=== PATIENT | male | born 1960 | race Caucasian/White ===

== ENCOUNTER 2022-02-09 09:19 | Outpatient (REF) | payer OTHER, SELFPAY ==
[2022-02-09 11:27] LABS: MANUAL DIFF FLAG NO
[2022-02-09 11:36] LABS: Basophils Percent Auto 0.7 % (0-2); Eosinophils Absolute Auto 0.2 X10*3/uL (0.0-0.4); Eosinophils Percent Auto 2.5 % (0-4); Hemoglobin 14.5 g/dl (14.0-18.0); Imm Gran Abs Auto 0.01 X10*3/uL (0.00-0.03); Imm Gran Pct Auto 0.2 % (0.0-0.4); Lymphocytes Absolute Auto 1.4 X10*3/uL (1.2-4.9); Mean Corpuscular Hemoglobin 28.2 pg (27.0-33.0); Mean Corpuscular Volume 85.6 fL (80.0-98.0); Mean Platelet Volume 9.1 fL (9.4-12.4); Monocytes Absolute Auto 0.4 X10*3/uL (0.1-1.2); Monocytes Percent Auto 6.8 % (2-11); Neutrophils Percent Auto 66.8 % (45-73); Platelet Count 262 X10*3/uL (160-400); Red Blood Count 5.14 X10*6/uL (4.60-5.80); White Blood Count 5.9 X10*3/uL (4.8-10.8)
[2022-02-09 11:40] LABS: Appearance Urine Clear; Color Urine Yellow; Glucose Urine UA Negative (Negative); Leukocyte Esterase Urine Negative (Negative); Nitrite Urine Negative (Negative); PH 5.5 (5.0-9.0); Specific Gravity - Urine 1.015 (1.005-1.025); Urine Blood Negative (Negative); Urine Ketones Negative (Negative); Urine Protein Negative (Neg-Trace)
[2022-02-09 12:04] LABS: Amphetamine Screen Urine Not Detected (Not Detect); Barbiturates, Urine Not Detected (Not Detect); Benzodiazepines Screen Urine Not Detected (Not Detect); Cannabinoid Screen Urine POSITIVE (Not Detect); Cocaine Screen Urine Not Detected (Not Detect); Fentanyl, urine Not Detected (Not Detect); Opiate Screen Urine Not Detected (Not Detect); Phencyclidine Screen Urine Not Detected (Not Detect)
[2022-02-09 12:07] LABS: Creatinine Urine 75.55 mg/dL; Microalbumin Urine < 5.0 mg/L
[2022-02-09 13:58] LABS: Alanine Aminotransferase 37 U/L (0-40); Albumin Level 4.2 g/dL (3.5-5.0); Alkaline Phosphatase 78 U/L (39-117); Anion Gap 10 (12-20); Aspartate Amino Transferase 27 U/L (5-37); Bilirubin Total 0.5 mg/dL (0.0-1.0); Blood Urea Nitrogen 19 mg/dL (9-16); Calcium 9.1 mg/dL (8.4-10.2); Carbon Dioxide 27 mmol/L (22-29); Chloride 106 mmol/L (96-108); Cholesterol 138 mg/dL; Estimated Glomerular Filt Rate > 60; Glucose Fasting 136 mg/dL (60-99); HDL Cholesterol 28 mg/dL; LDL Cholesterol Calculated 94 mg/dl; Potassium 4.5 mmol/L (3.3-5.1); Prostate Specific Antigen Scr 0.45 ng/mL (<0.05-4.0); Sodium 138 mmol/L (135-145); TSH reflex Free T4 0.74 uIU/mL (0.32-4.0); Total Protein 6.8 g/dL (6.5-8.0); Triglycerides 80 mg/dL
[2022-02-16 12:49] LABS: Testosterone, Free 43.1 pg/mL (35.0-155.0); Testosterone, Total 291 ng/dL (250-1100)
== END 2022-02-09 09:20 | disposition home or self-care (01) ==
LOC: HO.WFDLDS 09:19
PROVIDERS: Visit Provider Family Medicine
DX: Z00.00 Encounter for general adult medical examination without abnormal findings (principal); R79.89 Other specified abnormal findings of blood chemistry; I10 Essential (primary) hypertension; F11.90 Opioid use, unspecified, uncomplicated; Z12.5 Encounter for screening for malignant neoplasm of prostate
CPT/HCPCS: 36415; 80053; 80061; 80307; 81003; 82043; 84153; 84402; 84403; 84443; 85025

== ENCOUNTER 2022-09-29 07:58 | Outpatient (AMB) | payer OTHER, SELFPAY ==
[2022-09-29 08:08] VITALS: BMI 29.8
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
== END 2022-09-29 08:56 | disposition home or self-care (01) ==
PROVIDERS: PCP Family Medicine; Visit Provider Physician Assistant
DX: M65.322 Trigger finger, left index finger (principal)
CPT/HCPCS: 99204

== ENCOUNTER → 2022-09-29 07:58 | Outpatient (BNVA) | payer OTHER, SELFPAY | PROVIDERS: PCP Family Medicine; Visit Provider Orthopaedic Surgery | DX: M65.322 Trigger finger, left index finger (principal) | CPT/HCPCS: 99202 ==

== ENCOUNTER → 2022-10-04 16:04 | Outpatient (AMB) | payer OTHER, SELFPAY ==
--- NOTE | 2022-10-04 16:11 | A.OFFVIS_ITS ---
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 male here today for pre colonoscopy screening.? Patient was sent to us by his PCP.? Last colonoscopy in 2019 recommendation was made to repeat colonoscopy in 3-5 years. ? Denies any personal or family history of gastrointestinal disease, colon polyps, or cancer.? Patient reports occasional postprandial loose stools, then feeling constipated. Occasional lower abdominal cramping postprandially. Patient is taking omeprazole daily. Patient states that he has been taking it for several years. Last upper endoscopy was in 2019 showed chronic inflammation without esophagitis, Miranda's. Denies history of difficulty with sedation or anesthesia in the past.? Negative for history of sleep apnea.? Denies any history of cardiac, renal, pulmonary, or hepatic disease.?? No history of infectious? diseases like hepatitis A, B, C, HIV or tuberculosis.? Patient is not on any anticoagulation therapy. [facility] Surgical History H/O cervical discectomy H/O rotator cuff surgery History of total right knee replacement Social History Housing: House Patient Tobacco Use Status: Never used Tobacco e-Cigarette/Vaping Use: Never Used service: Yes Current occupational status: unemployed Cognitive needs: No Hearing needs: No Vision needs: No Review of Systems Const Denies weight gain and Denies weight loss ENT Reports no additional complaints, Denies dysphagia and Denies odynophagia Card Reports no additional complaints Resp Reports no additional complaints GI Reports abdominal pain (Epigastric), Denies belching, Denies melena, Denies bloating, Reports constipation, Denies dysphagia, Denies excessive flatus, Denies dyspepsia, Denies heartburn, Denies diarrhea, Reports loose stools, Denies nausea, Denies odynophagia and Denies vomiting Reports no additional complaints Musc Reports no additional complaints Neuro Reports no additional complaints Psych Reports no additional complaints Endo Reports no additional complaints Physical Exam Vital Signs: Last Vital Signs Pulse 75 10/04/22 16:12 BP 95/64 10/04/22 16:12 BMI result Body Mass Index 29.9 Const General: healthy appearing, no acute distress and well developed Nutritional Appearance: obese Orientation/consciousness: patient oriented x3 HEENT Head: Yes normal to inspection, Yes normocephalic and Yes atraumatic Face and sinus: Yes normal facial exam Mouth: Normal oral and palatal mucosa present Throat: Yes posterior oropharynx normal, Yes tonsils normal and Yes uvula midline Eyes General: appearance normal, both eyes and all related structures Neck Neck: Yes normal visual inspection, Yes full ROM and Yes trachea midline Thyroid: Thyroid normal Resp Effort & Inspection: normal respiratory effort, able to speak in complete s entences, no tracheal deviation and symmetric chest movement Auscultation: clear to auscultation bilaterally Cardio Rate: regular rate Heart sounds: S1 normal heart sound present and S2 normal heart sound present GI Inspection: Yes normal to inspection, No distended and Yes obesity Palpation (GI): Soft to palpation, not firm, nontender and No hepatosplenomegaly present Auscultation: normal bowel sounds General: Yes no CVA tenderness Back/Spine/Pelvis Back: no CVA tenderness Skin General skin exam: elasticity normal, turgor normal and dry skin Neuro General: patient oriented x3 Psych Appearance: grossly normal Mental Status: mental status grossly normal Speech and movement: Normal speech and movement present Assessment & Plan Assessment & Plan (1) Screening for colon cancer: Code(s): Z12.11 - Encounter for screening for malignant neoplasm of colon Plan: Patient denies any cardiac or respiratory symptoms.? Denies any issues with anesthesia in the past.? Denies any history of sleep apnea.? No history infectious diseases in the past or present.? Not on any anticoagulation therapy.? No family or personal history of colon cancer or polyps.? Patient denies melena, hematochezia, unintentional weight loss or ribbon like stools.? Discussed at length the pre-procedure,? prep, diet & medications as well as what to expect prior, during and after the procedure.?? Stressed the importance of good bowel prep. ?Recommended the use of Vaseline or Calmoseptine OTC & baby wipes with bowel movements to promote comfort.? ?Patient verbalizes understanding and agrees to plan of care.? (2) Postprandial epigastric pain: Code(s): R10.13 - Epigastric pain Plan: Occasional postprandial abdominal pain. Will send patient to rule out celiac, check vitamin B12, folate, vitamin-D. (3) Postprandial diarrhea: Code(s): K52.9 - Noninfective gastroenteritis and colitis, unspecified Plan: Occasional postprandial diarrhea then constipation. Will check CRP to rule out inflammatory bowel, check thyroid level. Patient has postprandial loose stools but then will be constipated. Will start patient on history cell in the morning to help him bulk his stools and Senokot at bedtime to help him eliminate his bowels. I will see him in 5 weeks, sooner on as needed basis. Patient is agreeable to this plan and verbalizes understanding of instructions. He was given the opportunity to ask questions and all questions answered. Thank you for allowing me to participate in his care Orders: Orders Vitamin B12 and Folate 10/05/22 R19.7 - Diarrhea, unspecified C Reactive Protein 10/05/22 K58.9 - Irritable bowel syndrome without diarrhea TSH reflex Free T4 10/05/22 K59.00 - Constipation, unspecified Vitamin D 25-OH (D2 and D3) 10/05/22 E55.9 - Vitamin D deficiency, unspecified Transglutaminase IgA 10/05/22 R10.9 - Unspecified abdominal pain Transglutaminase Ab IgG 10/05/22 R10.9 - Unspecified abdominal pain Medications: New sennosides (Natural Senna Laxative) 8.6 mg PO BEDTIME 90 tabs 3RF constipation K59.00 - Constipation, unspecified methylcellulose (laxative) (Citrucel) 500 mg PO DAILY 30 tabs 2RF K59.00 - Constipation, unspecified Coding Level of Care Code New Pt Level 4 (47605) Diagnoses Screening for colon cancer Z12.11 Postprandial epigastric pain R10.13 Postprandial diarrhea K52.9 Time Spent (min) 45 Comment 30 minutes spent with patient and additional 15 minutes spent reviewing his records
[2022-10-04 16:12] VITALS: BP 95/64; PULSE 75; BMI 29.9
== END ==
PROVIDERS: PCP Family Medicine; Visit Provider Nurse Practitioner Family
DX: Z01.818 Encounter for other preprocedural examination (principal); Z12.11 Encounter for screening for malignant neoplasm of colon; R10.13 Epigastric pain; K52.9 Noninfective gastroenteritis and colitis, unspecified
CPT/HCPCS: 99204

== ENCOUNTER → 2022-10-04 16:04 | Outpatient (BNVA) | payer OTHER, SELFPAY | PROVIDERS: PCP Family Medicine; Visit Provider Nurse Practitioner Family | DX: Z12.11 Encounter for screening for malignant neoplasm of colon (principal); K52.9 Noninfective gastroenteritis and colitis, unspecified; R10.13 Epigastric pain | CPT/HCPCS: 99202 ==

== ENCOUNTER 2022-10-05 09:12 | Outpatient (REF) | payer OTHER, SELFPAY ==
[2022-10-05 12:22] LABS: Folate 5.5 ng/mL (> or = 4.0); Vitamin B12 208 pg/mL (200-900)
[2022-10-05 12:40] LABS: C Reactive Protein 0.19 mg/dL (< or = 0.50); TSH reflex Free T4 0.88 uIU/mL (0.32-4.0)
[2022-10-06 17:28] LABS: Transglutaminase Ab IgG 73.2 U/mL; Transglutaminase IgA >250.0 U/mL
[2022-10-08 15:08] LABS: Vitamin D 25-OH, D2 <4 ng/mL; Vitamin D 25-OH, D3 42 ng/mL; Vitamin D 25-OH, Total 42 ng/mL (30-100)
== END 2022-10-05 09:13 | disposition home or self-care (01) ==
LOC: HO.WFDLDS 09:12
PROVIDERS: Visit Provider Nurse Practitioner Family
DX: K59.00 Constipation, unspecified (principal); R19.7 Diarrhea, unspecified; E55.9 Vitamin D deficiency, unspecified; R10.9 Unspecified abdominal pain; K58.9 Irritable bowel syndrome, unspecified
CPT/HCPCS: 36415; 82306; 82607; 82746; 84443; 86140; 86364

== ENCOUNTER 2022-11-09 10:37 | Outpatient (AMB) | payer OTHER, SELFPAY ==
--- NOTE | 2022-11-09 10:41 | MHC.OFFVIS ---
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 Denies any issues with anesthesia in the past.? Denies any history of sleep apnea.? No history infectious diseases in the past or present.? Not on any anticoagulation therapy.? No family or personal history of colon cancer or polyps.? Patient denies melena, hematochezia, unintentional weight loss or ribbon like stools.? Discussed at length the pre-procedure,? prep, diet & medications as well as what to expect prior, during and after the procedure.?? Stressed the importance of good bowel prep. ?Recommended the use of Vaseline or Calmoseptine OTC & baby wipes with bowel movements to promote comfort.? ?Patient verbalizes understanding and agrees to plan of care.? Postprandial epigastric pain Occasional postprandial abdominal pain. Will send patient to rule out celiac, check vitamin B12, folate, vitamin-D. Postprandial diarrhea Occasional postprandial diarrhea then constipation. Will check CRP to rule out inflammatory bowel, check thyroid level. Patient has postprandial loose stools but then will be constipated. Will start patient on history cell in the morning to help him bulk his stools and Senokot at bedtime to help him eliminate his bowels. I will see him in 5 weeks, sooner on as needed basis. Patient is agreeable to this plan and verbalizes understanding of instructions. He was given the opportunity to ask questions and all questions answered. ? Thank you for allowing me to participate in his care Plan Orders Orders Vitamin B12 and Folate 10/05/22 R19.7 C Reactive Protein 10/05/22 K58.9 TSH reflex Free T4 10/05/22 K59.00 Vitamin D 25-OH (D2 and D3) 10/05/22 E55.9 Transglutaminase IgA 10/05/22 R10.9 Transglutaminase Ab IgG 10/05/22 R10.9 Medications New sennosides (Natural Senna Laxative) 8.6 mg PO BEDTIME 90 tabs 3RF constipation K59.00 methylcellulose (laxative) (Citrucel) 500 mg PO DAILY 30 tabs 2RF K59.00 TODAY'S VISIT: Patient is here today for follow-up and discuss going for colonoscopy. Patient had high transglutaminase. Diagnosed with celiac. Patient will be sent for upper endoscopy to further evaluate and biopsy small bowel. Patient reports that omeprazole has not been working. Still has epigastric discomfort occasionally. Patient tried avoiding gluten, hard to manage due to finding things in the store that are gluten free. Discussed with patient gluten free scanner madie. patient denies any issues with anesthesia in the past. No history of sleep apnea. Not on any anticoagulation medication. Denies any cardiac or respiratory symptoms. [facility] Medical History (Updated 11/09/22 @ 11:28 by Izabella Cabrera [facility]) Celiac disease Surgical History H/O cervical discectomy H/O rotator cuff surgery History of total right knee replacement Social History Housing: House Patient Tobacco Use Status: Never used Tobacco e-Cigarette/Vaping Use: Never Used service: Yes Current occupational status: unemployed Cognitive needs: No Hearing needs: No Vision needs: No Review of Systems Const Denies weight gain and Denies weight loss ENT Reports no additional complaints, Denies dysphagia and Denies odynophagia Card Reports no additional complaints Resp Reports no additional complaints GI Reports abdominal pain (Epigastric), Denies belching, Denies melena, Denies bloating, Denies dysphagia, Denies excessive flatus, Denies dyspepsia, Denies heartburn, Denies diarrhea, Reports loose stools, Denies nausea, Denies odynophagia and Denies vomiting Reports no additional complaints Musc Reports no additional complaints Neuro Reports no additional complaints Psych Reports no additional complaints Endo Reports no additional complaints Physical Exam Vital Signs: BMI result Body Mass Index 29.4 Const General: healthy appearing, no acute distress and well developed Nutritional Appearance: obese Orientation/consciousness: patient oriented x3 HEENT Head: Yes normal to inspection, Yes normocephalic and Yes atraumatic Face and sinus: Yes normal facial exam Mouth: Normal oral and palatal mucosa present Throat: Yes posterior oropharynx normal, Yes tonsils normal and Yes uvula midline Eyes General: appearance normal, both eyes and all related structures Neck Neck: Yes normal visual inspection, Yes full ROM and Yes trachea midline Thyroid: Thyroid normal Resp Effort & Inspection: normal respiratory effort, able to speak in complete sentences, no tracheal deviation and symmetric chest movement Auscultation: clear to auscultation bilaterally Cardio Rate: regular rate Heart sounds: S1 normal heart sound present and S2 normal heart sound present GI Inspection: Yes normal to inspection, No distended and Yes obesity Palpation (GI): Soft to palpation, not firm, nontender and No hepatosplenomegaly present Auscultation: normal bowel sounds General: Yes no CVA tenderness Back/Spine/Pelvis Back: no CVA tenderness Skin General skin exam: elasticity normal, turgor normal and dry skin Neuro General: patient oriented x3 Psych Appearance: grossly normal Mental Status: mental status grossly normal Speech and movement: Normal speech and movement present Results Reviewed Results Reviewed: Laboratory Tests 10/05/22 10/05/22 10/05/22 09:13 09:13 09:13 Vitamin B12 208 25-OH Vitamin D Total 42 Folate 5.5 TSH 0.88 Tiss Transglutamin IgG Tiss Transglutamin IgA 10/05/22 09:13 Vitamin B12 25-OH Vitamin D Total Folate TSH Tiss Transglutamin IgG 73.2 H Tiss Transglutamin IgA >250.0 H Assessment & Plan Assessment & Plan (1) Screening for colon cancer: Code(s): Z12.11 - Encounter for screening for malignant neoplasm of colon Plan: Patient denies any issues with anesthesia in the past. No history of sleep apnea. Not on any anticoagulation medication. Patient had colonoscopy in 2019 and is aware that he needs to be on clear liquid diet and prep day before the procedure. What to expect before during and after the procedure discussed with patient. (2) Celiac disease: Code(s): K90.0 - Celiac disease Plan: High transglutaminase. Discussed with patient gluten free diet. Patient will download gluten free scanner to help with grocery shopping. Patient will be sent for upper endoscopy to further evaluate small bowel (3) Postprandial epigastric pain: Code(s): R10.13 - Epigastric pain Plan: Postprandial epigastric pain. Discussed with patient gluten free diet. Patient will be started on pantoprazole. (4) Postprandial diarrhea: Code(s): K52.9 - Noninfective gastroenteritis and colitis, unspecified Plan: Avoid dietary triggers. Avoid gluten. Patient can try to take Citrucel daily to help him both his stools. I will see patient after the procedure, sooner on as needed basis. Patient is agreeable to this plan and verbalizes understanding of instructions. He was given the opportunity to ask questions and all questions answered. Thank you for allowing me to participate in his care Medications: New pantoprazole take one tablet half an hour before breakfast 40 mg PO DAILY 30 tabs 4RF K21.9 - Gastro-esophageal reflux disease without esophagitis bisacodyl (Dulcolax (bisacodyl)) take 2 tabs at noon the day before your colonoscopy 10 mg (2 x 5 mg) PO ONCE 1 day 2 tabs 0RF Z12.11 - Encounter for screening for malignant neoplasm of colon polyethylene glycol 3350 (Miralax) As directed by gastroenterology department at [facility] 238 grams PO ONCE 238 grams 0RF Z12.11 - Encounter for screening for malignant neoplasm of colon Coding Level of Care Code Est Pt Level 4 (64351) Diagnoses Screening for colon cancer Z12.11 Celiac disease K90.0 Postprandial epigastric pain R10.13 Postprandial diarrhea K52.9 Time Spent (min) 40 Comment 25 minutes spent with patient and additional 15 minutes spent reviewing his records
[2022-11-09 10:42] VITALS: BP 101/65; PULSE 70; BMI 29.4
== END 2022-11-09 11:14 | disposition home or self-care (01) ==
PROVIDERS: PCP Family Medicine; Visit Provider Nurse Practitioner Family
DX: Z12.11 Encounter for screening for malignant neoplasm of colon (principal); K90.0 Celiac disease; R10.13 Epigastric pain; K52.9 Noninfective gastroenteritis and colitis, unspecified; Z01.818 Encounter for other preprocedural examination
CPT/HCPCS: 99214

== ENCOUNTER → 2022-11-09 10:37 | Outpatient (BNVA) | payer OTHER, SELFPAY | PROVIDERS: PCP Family Medicine; Visit Provider Nurse Practitioner Family | DX: Z01.818 Encounter for other preprocedural examination (principal); K90.0 Celiac disease; R10.13 Epigastric pain; K52.9 Noninfective gastroenteritis and colitis, unspecified | CPT/HCPCS: 99212 ==

== ENCOUNTER 2022-11-18 07:43 | Day surgery (SDC) | payer OTHER, SELFPAY ==
[2022-11-18 08:33] VITALS: BP 108/65; PULSE 60; RESP 18; TEMP 36.1; O2SAT 98
[2022-11-18 08:35] VITALS: BMI 28.8
--- NOTE | 2022-11-18 10:28 | MHC.SHP ---
Pre-Procedural Eval Section A Date of Service: 11/18/22 The patient is an INPATIENT: No Changes since office visit: No Cold of Flu in the past 2 weeks, No New Medical Problems, No Changes in Medication and No Patient answered all questions The History & Physical has been completed within 30 days and I have reviewed it.: Yes Section B Chief Complaint: Trigger finger, left index finger Allergies: Allergies Allergy/AdvReac Type Severity Reaction Status Date / Time coconut Allergy Severe SWELLING Verified 11/09/22 10:42 tree nut [Tree Nut] Allergy Severe SWELLING Verified 11/09/22 10:42 FRUIT, SKINS Allergy Severe SWELLING Uncoded 11/09/22 10:42 Plan I have reviewed the history and physical and performed a pertinent physical examination on my patient. No changes have occurred unless specified. Time Spent With Patient Time: Total time managing care of this patient today ____ minutes.
--- NOTE | 2022-11-18 10:28 | W.PM.OPN ---
Operative Note Operative Note Date of Service: 11/18/22 Narrative: Operative Note Preop diagnosis: 1. left index finger Trigger finger Postop diagnosis: 1. left index finger Trigger finger Procedure: 1. left index finger A1 nani release Surgeon: Shelby Reese MD Anesthesia: local block using 1% lidocaine with epinephrine Findings: No locking or catching after A1 nani release EBL: Less than 5 mL Tourniquet time: None Specimens: None Complications: None Disposition: Brought to recovery room in stable condition Plan: Follow-up for 10-14 days for wound check and suture removal Indications: The patient is 62 years old, with a left index finger trigger finger that has been unresponsive to nonoperative management. patient was also noted to have a healing wound on the dorsal aspect of his hand between the 1st and 2nd metacarpals, and another 6 cm long oblique scratch over the volar aspect of his forearm. I assessed these wounds in preop hold and talked with the patient. The dorsal hand wound was 2-week-old and the volar wrist wound was several days old. Neither of these appear to be infected. We did talk about the possible increased risk for infection. The patient was very interested in having is procedure done today. The risks and benefits of operative treatment including but not limited to risk of damage to blood vessels, nerves, tendons, infection, persistent pain, persistent symptoms, recurrence or possible need for additional surgery were discussed with the patient and the patient wishes to proceed with surgery. Procedure: Once consent was obtained a local block was performed in the preop area using a combination of 1% lidocaine with epinephrine. The patient was then brought back to the operating suite and placed on the operative table in supine position. The left upper extremity was prepped and draped in a standard surgical fashion. Once assured that we had a good block, a 1.5 cm oblique incision was made centered over the A1 nani of the left index finger . The incision was made through the skin to the subcutaneous tissues using a #15 blade. Careful dissection was made down to the level of the A1 nani using tenotomy scissors, with care being taken to protect the nearby neurovascular structures. A longitudinal incision was made in the A1 nani 1st using a #15 blade, then using tenotomy scissors under direct visualization. The A1 nani was noted to be thickened. Following our A1 nani release, we no longer saw any locking or catching of the digit with flexion and extension. Once satisfied with our A1 nani release the wound was copiously irrigated with normal saline and hemostasis was obtained with a brief period of local pressure. The skin edges were reapproximated with some 5.0 nylon suture material and a sterile dressing was applied. The patient appears to have tolerated the procedure well and with no complications. All digits were well vascularized at the conclusion of the case.
[2022-11-18 11:57] VITALS: BP 126/72; PULSE 50; RESP 16; O2SAT 95
== END 2022-11-18 11:59 | disposition home or self-care (01) ==
PROVIDERS: PCP Family Medicine; Visit Provider Orthopaedic Surgery
PROC: (CPT 26055; principal; 2022-11-18 09:40)
DX: M65.322 Trigger finger, left index finger (principal); M79.642 Pain in left hand; E11.9 Type 2 diabetes mellitus without complications; Z98.890 Other specified postprocedural states
CPT/HCPCS: 26055; J0171

== ENCOUNTER → 2022-11-18 07:43 | Outpatient (BNV) | payer OTHER, SELFPAY | PROVIDERS: PCP Family Medicine; Visit Provider Orthopaedic Surgery | DX: M65.322 Trigger finger, left index finger (principal) | CPT/HCPCS: 26055 ==

== ENCOUNTER 2022-11-30 13:41 | Outpatient (AMB) | payer OTHER, SELFPAY ==
--- NOTE | 2022-11-30 12:07 | A.OFFVIS_ITS ---
Intake Vital Signs 11/30/22 14:05 Height 5 ft 9 in Weight 195 lb BMI 28.8 Intake Visit Reasons: PO LT TR 11/18/22AR Intake Note: Anirudh 62 yr old male presents today for his P/O visit for his left index trigger release from 11/18/22. Sutures removed and steri strips applied. States his finger no longer triggers and has a little soreness. Allergies coconut Allergy (Severe, Verified 11/30/22 14:16) SWELLING tree nut [Tree Nut] Allergy (Severe, Verified 11/30/22 14:16) SWELLING FRUIT, SKINS Allergy (Severe, Uncoded 11/30/22 14:16) SWELLING HPI PO LT TR 11/18/22AR HPI Details Anirudh is a 62 year old right hand dominant man who presents S/P left index trigger finger release, DOS: 11/18/22. He says he is doing well and no longer has any locking or catching. He complains of some new numbness in the median nerve distribution bilaterally, R>L. He says this occurs mostly with activity, such as riding his motorcycle, and at night. He denies any numbness at rest. He reports having C-spine surgery in 12/2021. [facility] Medical History (Updated 11/30/22 @ 15:02 by Roney Mead) Celiac disease Surgical History H/O rotator cuff surgery H/O cervical discectomy History of total right knee replacement Social History Housing: House Patient Tobacco Use Status: Never used Tobacco e-Cigarette/Vaping Use: Never Used service: Yes Current occupational status: unemployed Cognitive needs: No Hearing needs: No Vision needs: No Review of Systems Const All systems reviewed & are unremarkable except as noted in HPI and below Physical Exam Vital Signs: BMI result Body Mass Index 28.8 Const General: no acute distress and alert Orientation/consciousness: patient oriented x3 Neuro General: patient oriented x3 Extrem Other: The patient was alert oriented and in no acute distress The incision is healing well with no erythema drainage or evidence of infection. Sutures removed and Steri-Strips applied He can make a fist and extend all his digits with no locking or catching. Sensation is grossly intact Cap refill is brisk Psych Appearance: grossly normal Affect: normal affect Attitude: cooperative Assessment & Plan Assessment & Plan (1) Trigger finger, left index finger: Code(s): M65.322 - Trigger finger, left index finger (2) Numbness in both hands: Code(s): R20.0 - Anesthesia of skin Plan Assessment & Plan: 1. Left index trigger finger, S/P release DOS: 11/18/22 The patient appears to be doing well post-operatively I educated him about the post-operative course I explained the signs and symptoms of infection, if the patient develops any new or worsening erythema, drainage, pain, or warmth they should contact the clinic or attend the ED. I discussed activity modifications, he is to lift nothing heavier than a cellphone for the next two weeks He will perform gentle ROM exercises at home He should avoid any underwater activities for the next 5 days He should gently massage about the incision site to reduce the risk of hypersensitivity 2. Bilateral hand numbness, R>L In the median nerve distribution Symptoms intermittent and occasional with activity, and at night He has a hx of C-spine surgery in 12/2021 I ordered a NCS to assess for peripheral neuropathy vs cervical radiculopathy He will follow up when completed for review Scribed for Shelby Reese MD by Roney Mead, medical records field technician, on 11/30/22 at 3:00 PM, EST. Orders: Orders NE nerve conduction velocity Today R20.0 - Anesthesia of skin, R20.2 - Paresthesia of skin Coding Level of Care Code Global (01398) Diagnoses Trigger finger, left index finger M65.322 Numbness in both hands R20.0
[2022-11-30 14:05] VITALS: BMI 28.8
== END 2022-11-30 15:07 | disposition home or self-care (01) ==
PROVIDERS: PCP Family Medicine; Visit Provider Orthopaedic Surgery
DX: M65.322 Trigger finger, left index finger (principal); R20.0 Anesthesia of skin
CPT/HCPCS: 99024

== ENCOUNTER → 2022-11-30 13:41 | Outpatient (BNVA) | payer OTHER, SELFPAY | PROVIDERS: PCP Family Medicine; Visit Provider Orthopaedic Surgery ==

== ENCOUNTER 2022-12-08 09:32 | Outpatient (REF) | payer OTHER, SELFPAY ==
--- NOTE | 2022-12-08 09:35 | EMG_ITS ---
Please see scanned EMG / Nerve Conduction Report. MTDD
== END 2022-12-08 09:33 | disposition home or self-care (01) ==
LOC: HO.NEURO 09:32
PROVIDERS: Visit Provider Orthopaedic Surgery
DX: R20.0 Anesthesia of skin (principal); R20.2 Paresthesia of skin
CPT/HCPCS: 95885; 95913

== ENCOUNTER 2022-12-16 13:05 | Day surgery (SDC) | payer OTHER, SELFPAY ==
[2022-12-14 10:18] VITALS: BMI 29.4
--- NOTE | 2022-12-15 11:49 | HO.ANESPROP2 ---
Documented by User: Aminah Looney NP 12/15/22 11:50 HPI - Anesthesia Eval Consult details Narrative: 62yo M for Upper Endoscopy and Colonoscopy ON LICENSE OF [facility] Active Problems Active Problems: All Active Problems (Updated 12/14/22 @ 10:06 by Lovely Izquierdo RN) Numbness in both hands (Acute) Trigger finger, left index finger (Acute) Fatigue (Acute) Chest discomfort (Acute) Left leg pain (Acute) Subscapular pain (Acute) Diabetes (Acute) Screening for prostate cancer (Acute) Screening for colon cancer (Acute) Low HDL (under 40) (Acute) Elevated fasting glucose (Acute) Adult general medical exam (Acute) Allergies (Acute) Nerve root compression (Acute) Disc-osteophyte complex (Acute) Laboratory exam ordered as part of routine general medical examination (Acute) Celiac disease (Acute) Past Medical History Medical History (Updated 12/14/22 @ 10:06 by Lovely Izquierdo RN) Diabetes Celiac disease Surgical History Surgical History (Updated 12/14/22 @ 10:16 by Lovely Izquierdo RN) Hx of hand surgery H/O rotator cuff surgery H/O cervical discectomy History of total right knee replacement Social History Social History Housing: House Patient Tobacco Use Status: Former Tobacco user Quit Date: 40 years e-Cigarette/Vaping Use: Never Used service: Yes Current occupational status: unemployed Cognitive needs: No Hearing needs: No Vision needs: No Meds Allergies Allergy/AdvReac Type Severity Reaction Status Date / Time coconut Allergy Severe SWELLING Verified 11/30/22 14:16 tree nut [Tree Nut] Allergy Severe SWELLING Verified 11/30/22 14:16 FRUIT, SKINS Allergy Severe SWELLING Uncoded 11/30/22 14:16 Home Medications Medication Instructions Recorded Confirmed Last Taken Type cetirizine 10 mg capsule (Zyrtec) 10 mg PO DAILY 12/16/22 12/16/22 12/16/22 History Exam Exam Date and Time: December 15, 2022 114 Height,Weight and Vital Signs: Height 5 ft 9 in Weight 90.265 kg Assessment and Plan Assessment Anesthesia Assessment: Chart Reviewed Documented by User: Dandre Mcqueen MD 12/16/22 18:10 HPI - Anesthesia Eval Consult details Narrative: 62yo M for Upper Endoscopy and Colonoscopy functional status greater than 4 METS PMFSH Past Medical History Medical History (Updated 12/14/22 @ 10:06 by Lovely Izquierdo RN) Diabetes Celiac disease Functional capacity: independent ambulation Family History Family history of problems with anesthesia: No Surgical History Surgical History (Updated 12/14/22 @ 10:16 by Lovely Izquierdo RN) Hx of hand surgery H/O rotator cuff surgery H/O cervical discectomy History of total right knee replacement History of Problems with Anesthesia: No Social History Social History Housing: House Patient Tobacco Use Status: Former Tobacco user Quit Date: 40 years e-Cigarette/Vaping Use: Never Used service: Yes Current occupational status: unemployed Cognitive needs: No Hearing needs: No Vision needs: No Meds Allergies Allergy/AdvReac Type Severity Reaction Status Date / Time coconut Allergy Severe SWELLING Verified 11/30/22 14:16 tree nut [Tree Nut] Allergy Severe SWELLING Verified 11/30/22 14:16 FRUIT, SKINS Allergy Severe SWELLING Uncoded 11/30/22 14:16 Home Medications Medication Instructions Recorded Confirmed Last Taken Type cetirizine 10 mg capsule (Zyrtec) 10 mg PO DAILY 12/16/22 12/16/22 12/16/22 History Exam Airway Mallampati Class: III Loose/Missing/Broken Teeth: Yes (missing and poor dentition ) Assessment and Plan Assessment Anesthesia Assessment: Anesthesia Plan Discussed Final Anesthetic Review Family History of Problems with Anesthesia: No History of Problems with Anesthesia: No NPO: Yes ASA Class: II Final Preanesthetic Review: Meds/Allgs Chart Reviewed, Consent Obtained/Reviewed and Anes Risks/Benef Reviewed Patient Risk: Intermediate Procedure Risk: Intermediate Anesthetic Plan Anesthetic Plan: MAC: and Agree w/ Assess. and Plan Disposition: Standard PACU
[2022-12-16 13:35] VITALS: BP 134/88; PULSE 67; RESP 18; TEMP 36.1; O2SAT 99; BMI 28.8
[2022-12-16] MEDS: Lactated Ringers 1,000 ML 100 ML IVCONT (13:59)
--- NOTE | 2022-12-16 16:04 | MHC.SHP ---
Pre-Procedural Eval Section A Date of Service: 12/16/22 Section B Chief Complaint: celiac ab +, diarrhea, hx of polyps Details of Present Illness: Surg hx: H/O cervical discectomy H/O rotator cuff surgery History of total right knee replacement Relevant Social History: None Present Medications: see Short Stay Collaborative assessment Allergies: Allergies Allergy/AdvReac Type Severity Reaction Status Date / Time coconut Allergy Severe SWELLING Verified 11/30/22 14:16 tree nut [Tree Nut] Allergy Severe SWELLING Verified 11/30/22 14:16 FRUIT, SKINS Allergy Severe SWELLING Uncoded 11/30/22 14:16 Review of Systems Review of Systems Comment: 10 point ROS negative Exam Exam Comment: Gen appear: No acute distress HEENT: no icterus Chest: No overt resp distress Abd: soft, nontender, nondistended Psych: Stable affect, answering questions appropriately Neuro: A/Ox3 noted to move all extremities spontaneously Ext: no peripheral edema Plan Diagnosis/Plan: Unchanged I have reviewed the history and physical and performed a pertinent physical examination on my patient. No changes have occurred unless specified. Time Spent With Patient Time: Total time managing care of this patient today ____ minutes.
--- NOTE | 2022-12-16 17:14 | P.OP_ITS ---
Operative Note Operative Note Date of Service: 12/16/22 Narrative: Procedure:?Esophagogastroduodenoscopy and colonoscopy Endoscopist:?Mary Carmen Silverman MD Indication:?Celiac ab +, diarrhea, hx of polyps Anesthesia Provider:?Dr Mcqueen Anesthesia Type:?MAC Instrument:?Olympus GIF-H190, PCF-H190L EGD Procedure:?? The procedure, indications, preparation and potential complications were reviewed with the patient who indicated understanding and gave written informed consent to proceed. A physical exam was performed. The endoscope was introduced through the mouth, and advanced to the second part of duodenum. The mucosa was carefully examined on slow withdrawal of the endoscope. There were no immediate complications. Patient tolerated the procedure well. EGD Findings:? * Esophagus:? Normal mucosa noted in the entire esophagus. The Z-line is at 40 cm. * Stomach:? Normal mucosa was noted in the stomach. Retroflexion performed in the fundus. * Duodenum:? Fissuring and scalloping of duodenal mucosa was noted with significant blunting of villi in the second portion. Cold forceps biopsies were taken to r/o celiac sprue. There was also a 1.5 cm subepithelial nodule in second portion of the duodenum. This was unroofed with the cold snare re vealing fatty tissue underneath consistent with lipoma. Cold forceps biopsies were taken for histology. Colonoscopy Procedure:? The patient was then turned for the colonoscopy. A digital rectal exam was performed which was abnormal for external hemorrhoids.? A distal attachment cap was affixed to the tip of the scope and the colonoscope was then inserted through the anus and advanced through the colon to the cecum at 70 cm and terminal ileum. Appendiceal orifice and ileocecal valve were identified. Mucosa was carefully examined under high definition white light as the instrument was slowly withdrawn in a retrograde panoramic fashion. Retroflexion was performed in rectum. The procedure was not difficult. There were no immediate obvious complications. The quality of the prep was BBPS: 2+2+2 = adequate Withdrawal time: 12 minutes Limitations: No limitation. Findings: Mucosa: Normal mucosa to cecum and terminal ileum. Cold forceps biopsies were taken from R and L side of the colon to r/o microscopic colitis. Protruding lesions: * Medium internal hemorrhoids without stigmata of recent bleeding. Impression: 1. Normal esophagus 2. Normal stomach 3. 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 Normal colon and terminal ileum mucosa (biopsy) 6. External and internal hemorrhoids Recommendations:?? * Await pathology results. * If path confirms celiac disease, will recommend strict gluten free diet as well as screening and management of nutrient deficiencies as per guidelines. * Repeat colonoscopy in 5 years as patient reports hx of advanced adenoma on last colo in 2019.
[2022-12-16 17:21] VITALS: BP 95/56; PULSE 73; RESP 15; TEMP 36.1; O2SAT 97
[2022-12-16 17:36] VITALS: BP 130/64; PULSE 82; RESP 14; O2SAT 98
[2022-12-16 17:51] VITALS: BP 115/73; PULSE 71; RESP 16; TEMP 36.7; O2SAT 99
== END 2022-12-16 17:53 | disposition home or self-care (01) ==
PROVIDERS: PCP Family Medicine; Visit Provider Internal Medicine
DX: Z12.11 Encounter for screening for malignant neoplasm of colon (principal); Z86.010 Personal history of colon polyps; K90.0 Celiac disease; K64.8 Other hemorrhoids; K64.4 Residual hemorrhoidal skin tags; K52.9 Noninfective gastroenteritis and colitis, unspecified; K21.9 Gastro-esophageal reflux disease without esophagitis; K29.80 Duodenitis without bleeding; E11.9 Type 2 diabetes mellitus without complications; Z79.899 Other long term (current) drug therapy; Z98.890 Other specified postprocedural states; Z87.891 Personal history of nicotine dependence
CPT/HCPCS: 45380; 43239; 88305; 88342; J3010

== ENCOUNTER → 2022-12-16 13:05 | Outpatient (BNV) | payer OTHER, SELFPAY | PROVIDERS: PCP Family Medicine; Visit Provider Internal Medicine | DX: Z12.11 Encounter for screening for malignant neoplasm of colon (principal); Z86.010 Personal history of colon polyps; K90.0 Celiac disease; K52.9 Noninfective gastroenteritis and colitis, unspecified | CPT/HCPCS: 43239; 43251; 45380 ==

== ENCOUNTER → 2023-01-04 16:11 | Outpatient (AMB) | payer OTHER, SELFPAY ==
--- NOTE | 2023-01-04 16:16 | MHC.OFFVIS ---
Intake Vital Signs 01/04/23 16:17 Height 5 ft 9 in Weight 195 lb BMI 28.8 BP 97/56 L Blood Pressure Location Lt brachial Position Sitting Pulse 58 Intake Visit Reasons: s/p DBL Intake Note: Patient follow up for Colonoscopy/EGD results. Patient denies any GI issues. [employer] Supervisor Required: No Accompanied by: Family/Other Allergies coconut Allergy (Severe, Verified 01/04/23 16:24) SWELLING tree nut [Tree Nut] Allergy (Severe, Verified 01/04/23 16:24) SWELLING FRUIT, SKINS Allergy (Severe, Uncoded 11/30/22 14:16) SWELLING HPI s/p DBL HPI Details LAST VISIT: Screening for colon cancer Patient denies any issues with anesthesia in the past. No history of sleep apnea. Not on any anticoagulation medication. Patient had colonoscopy in 2019 and is aware that he needs to be on clear liquid diet and prep day before the procedure. What to expect before during and after the procedure discussed with patient. Celiac disease High transglutaminase. Discussed with patient gluten free diet. Patient will download gluten free scanner to help with grocery shopping. Patient will be sent for upper endoscopy to further evaluate small bowel Postprandial epigastric pain Postprandial epigastric pain. Discussed with patient gluten free diet. Patient will be started on pantoprazole. Postprandial diarrhea Avoid dietary triggers. Avoid gluten. Patient can try to take Citrucel daily to help him both his stools. I will see patient after the procedure, sooner on as needed basis. Patient is agreeable to this plan and verbalizes understanding of instructions. He was given the opportunity to ask questions and all questions answered. ? UPPER ENDOSCOPY AN DCOLONOSCOPY: EGD Findings:? Esophagus:? Normal mucosa noted in the entire esophagus. The Z-line is at 40 cm. Stomach:? Normal mucosa was noted in the stomach. Retroflexion performed in the fundus. Duodenum:? Fissuring and scalloping of duodenal mucosa was noted with significant blunting of villi in the second portion. Cold forceps biopsies were taken to r/o celiac sprue. There was also a 1.5 cm subepithelial nodule in second portion of the duodenum. This was unroofed with the cold snare revealing fatty tissue underneath consistent with lipoma. Cold forceps biopsies were taken for histology. Findings: Mucosa: Normal mucosa to cecum and terminal ileum. Cold forceps biopsies were taken from R and L side of the colon to r/o microscopic colitis. Protruding lesions: Medium internal hemorrhoids without stigmata of recent bleeding. Impression: 1. Normal esophagus 2. Normal stomach 3. 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 Normal colon and terminal ileum mucosa (biopsy) 6. External and internal hemorrhoids Recommendations:?? Await pathology results. If path confirms celiac disease, will recommend strict gluten free diet as well as screening and management of nutrient deficiencies as per guidelines. Repeat colonoscopy in 5 years as patient reports hx of advanced adenoma on last colo in 2019. PATHOLOGY: Diagnosis A. Duodenum, biopsy: Chronic duodenitis with moderate villous blunting, foveolar metaplasia and increased intraepithelial lymphocytes consistent with celiac disease in the appropriate clinical setting. B. Duodenum, nodule, biopsy: Chronic duodenitis with moderate villous blunting and increased intraepithelial lymphocytes consistent with celiac disease in the appropriate clinical setting. C. Colon, right, biopsy: Colonic mucosa within normal limits; negative for active, chronic or microscopic colitis TODAY'S VISIT Patient is here today for follow-up and to discuss upper endoscopy results and colonoscopy results. Biopsy confirms celiac disease. Colonoscopy shows normal colonic mucosa on a negative for active, chronic or microscopic colitis. Patient will need to repeat colonoscopy in 5 years due to tubular adenoma on colonoscopy in 2020. Patient reports that he is having hard time finding bread that is not expensive and is gluten free. Patient likes lower dose breaths for sent which is. 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 His started making him salad. Patient is getting discouraged. Biopsy results discussed with patient. Patient denies any GI concerning symptoms at this time. Reports that he is moving his bowels without any issues. Denies any dyspepsia, dysphagia or odynophagia. Denies any melena, hematochezia, unintentional weight loss or ribbon like stools. Patient reports that he is taking pantoprazole in his symptoms of acid reflux are suppressed. [facility] Medical History (Updated 12/14/22 @ 10:06 by Loveyl Izquierdo RN) Diabetes Celiac disease Surgical History Hx of hand surgery H/O rotator cuff surgery H/O cervical discectomy History of total right knee replacement Social History Housing: House Patient Tobacco Use Status: Former Tobacco user Quit Date: 40 years e-Cigarette/Vaping Use: Never Used service: Yes Current occupational status: unemployed Cognitive needs: No Hearing needs: No Vision needs: No Review of Systems Const Denies weight gain and Denies weight loss ENT Reports no additional complaints, Denies dysphagia and Denies odynophagia Card Reports no additional complaints Resp Reports no additional complaints GI Denies abdominal pain, Denies belching, Denies melena, Denies bloating, Denies change in bowel habits, Denies dysphagia, Denies excessive flatus, Denies dyspepsia, Denies heartburn, Denies diarrhea, Denies loose stools, Denies nausea, Denies odynophagia and Denies vomiting Reports no additional complaints Musc Reports no additional complaints Neuro Reports no additional complaints Psych Reports no additional complaints Endo Reports no additional complaints Physical Exam Vital Signs: Last Vital Signs Pulse 58 01/04/23 16:17 BP 97/56 L 01/04/23 16:17 BMI result Body Mass Index 28.8 Const General: healthy appearing, no acute distress and well developed Nutritional Appearance: well nourished Orientation/consciousness: patient oriented x3 HEENT Head: Yes normal to inspection, Yes normocephalic and Yes atraumatic Face and sinus: Yes normal facial exam Mouth: Normal oral and palatal mucosa present Throat: Yes posterior oropharynx normal, Yes tonsils normal and Yes uvula midline Eyes General: appearance normal, both eyes and all related structures Neck Neck: Yes normal visual inspection, Yes full ROM and Yes trachea midline Thyroid: Thyroid normal Resp Effort & Inspection: normal respiratory effort, able to speak in complete sentences, no tracheal deviation and symmetric chest movement Auscultation: clear to auscultation bilaterally Cardio Rate: regular rate Heart sounds: S1 normal heart sound present and S2 normal heart sound present GI Inspection: Yes normal to inspection and No distended Palpation (GI): Soft to palpation, not firm, nontender and No hepatosplenomegaly present Auscultation: normal bowel sounds General: Yes no CVA tenderness Back/Spine/Pelvis Back: no CVA tenderness Skin General skin exam: elasticity normal, turgor normal and dry skin Neuro General: patient oriented x3 Psych Appearance: grossly normal Mental Status: mental status grossly normal Affect: normal affect Assessment & Plan Assessment & Plan (1) Celiac disease: Code(s): K90.0 - Celiac disease (2) Postprandial epigastric pain: Code(s): R10.13 - Epigastric pain (3) Postprandial diarrhea: Code(s): K52.9 - Noninfective gastroenteritis and colitis, unspecified Plan Long discussion with patient and his about gluten free choices. Discussed cost with patient the importance to abstain from gluten due to celiac disease. Reviewed with patient different choices for carbohydrate that are gluten free. Examples of gluten free flour and gluten free bread review on website. Patient will return in this office in 6 months, sooner on as needed basis. He is agreeable to this plan and verbalizes understanding of instructions. Both patient and were given the opportunity to ask questions and all questions answered. Thank you for allowing me to participate in his care Coding Level of Care Code Est Pt Level 4 (73620) Diagnoses Celiac disease K90.0 Postprandial epigastric pain R10.13 Postprandial diarrhea K52.9 Time Spent (min) 35 Comment 25 minute spent with patient and additional 10 minutes spent reviewing his records
[2023-01-04 16:17] VITALS: BP 97/56; PULSE 58; BMI 28.8
== END ==
PROVIDERS: PCP Family Medicine; Visit Provider Nurse Practitioner Family
DX: K90.0 Celiac disease (principal); R10.13 Epigastric pain; K52.9 Noninfective gastroenteritis and colitis, unspecified
CPT/HCPCS: 99214

== ENCOUNTER → 2023-01-04 16:11 | Outpatient (BNVA) | payer OTHER, SELFPAY | PROVIDERS: PCP Family Medicine; Visit Provider Nurse Practitioner Family | DX: K90.0 Celiac disease (principal); K52.9 Noninfective gastroenteritis and colitis, unspecified; R10.13 Epigastric pain | CPT/HCPCS: 99212 ==

== ENCOUNTER 2023-02-25 10:42 | Outpatient (AMB) | payer OTHER, SELFPAY ==
[2023-02-25 10:53] VITALS: BP 92/50; PULSE 80; RESP 13; O2SAT 98; BMI 29.1
--- NOTE | 2023-02-25 10:53 | A.OFFPC_ITS ---
Vital Signs 02/25/23 10:53 Height 5 ft 9 in Weight 197 lb BMI 29.1 BP 92/50 L Blood Pressure Location Lt brachial Position Sitting Respiration 13 Pulse 80 Pulse Source Pulse Oximeter Pulse Oximetry (%) 98 Oxygen Delivery Method Room Air Intake Visit Reasons: f/u diabetes-NEEDS PHQ-9 + THRIVE Intake Note: Patient is here for a follow up of diabetic care. Patient reports having knee pain, however reports hes lost joe in the healthcare system. 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 Accompanied by: Self / Same As Patient Allergies coconut Allergy (Severe, Verified 02/25/23 10:58) SWELLING tree nut [Tree Nut] Allergy (Severe, Verified 02/25/23 10:58) SWELLING FRUIT, SKINS Allergy (Severe, Uncoded 02/25/23 10:58) SWELLING Tobacco use date assessed: 02/25/23 Dental Screening Dental Screen Date: 02/25/23 Did you have a dental visit in the last 12 months?: Yes Did you have a dental problem in the last 6 months where you did not have access to dental care?: No Was dental information given to patient?: Patient has dentist HPI f/u diabetes-NEEDS PHQ-9 + THRIVE HPI Details 62 y/o male presents to f/u diet control led diabetes. Last A1c 08/30/22 6.2%. A1c today 02/25/23 is 6.2%. Pt has complaints of L leg pain. PFSH Medical History COVID-19 Diabetes Celiac disease Surgical History Hx of hand surgery H/O rotator cuff surgery H/O cervical discectomy History of total right knee replacement Family History (Updated 02/25/23 @ 11:00 by Tatiana Harding CMA) Other Alcohol abuse Drug abuse Social History Housing: House Patient Tobacco Use Status: Former Tobacco user Quit Date: 40 years e-Cigarette/Vaping Use: Never Used service: Yes Current occupational status: unemployed Cognitive needs: No Hearing needs: No Vision needs: No Questionnaire PHQ-9 Over the last 2 weeks, how often have you been bothered by any of the following problems? 1. Little interest or pleasure in doing things: nearly every day 2. Feeling down, depressed, or hopeless: several days 3. Trouble falling or staying asleep, or sleeping too much: several days (staying asleep) 4. Feeling tired or having little energy: nearly every day 5. Poor appetite or overeating: not at all 6. Feeling bad about yourself - or that you are a failure or have let yourself or your family down: not at all 7. Trouble concentrating on things, such as reading the newspaper or watching television: several days 8. Moving or speaking so slowly that other people could have noticed. Or the opposite - being so fidgety or restless that you have been moving around a lot more than usual: not at all 9. Thoughts that you would be better off or of hurting yourself in some way: not at all Total score: 9 Depression Screening Interpretation: Positive Depression Screening Done: Yes 19508 - PHQ-9 Billing: Yes Source: Developed by Drs. Jose Faulkner, Marjorie Gonzalez, Luis Felipe Palacios and colleagues, with an educational juanpablo from [employer]. Thrive Questionnaire Date Thrive assessed: 04/26/22 LAYO-7 AMB Questionnaire LAYO-7 Date LAYO - 7 assessed: 02/25/23 Feeling nervous, anxious, or on edge: 3 = Nearly every day ( antsy ) Not being able to stop or control worryin = Not at all Worrying too much about different things: 0 = Not at all Trouble relaxin = Nearly every day Being so restless that it is hard to sit still: 3 = Nearly every day Becoming easily annoyed or irritable: 3 = Nearly every day Feeling afraid as if something awful might happen: 0 = Not at all Total LAYO-7 score (0-4 normal; 5-9 mild; 10-14 moderate; 15-21 severe): 12 Source: Developed by Drs. Jose Faulkner, Luis Felipe Aguirre and colleagues, with an educational juanpablo from [employer]. LAYO-7 Assessment Billing LAYO-7 Assessment Tool: LAYO-7 Assessment 68753 Review of Systems Const Denies chills, Denies fatigue, Denies fever(s), Denies headache(s) and Denies weakness ENT Denies dizziness and Denies headache(s) Card Denies dyspnea Resp Denies cough, Denies dyspnea, Denies wheezing and Denies other (shortness of breath) Musc Denies numbness and Denies tingling Neuro Denies dizziness, Denies headache(s), Denies numbness, Denies tingling and Denies weakness Psych Denies anxiety and Denies depression Endo Denies fatigue Aller/Immun Denies wheezing Physical exam (Primary Care) Vital Signs: Last Vital Signs Pulse 80 02/25/23 10:53 Resp 13 02/25/23 10:53 BP 92/50 L 02/25/23 10:53 Pulse Ox 98 02/25/23 10:53 Oxygen Delivery Method Room Air 02/25/23 10:53 BMI result Body Mass Index 29.1 Tobacco/Smoking Status: Tobacco use Status Tobacco use date assessed 02/25/23 02/25/23 11:02 Patient Tobacco Use Status Former Tobacco user 02/25/23 11:02 e-Cigarette/Vaping Use Never Used 02/25/23 11:02 PHQ-9: PHQ-9 Score PHQ-9: Total score 9 02/25/23 11:29 Depression Screening Interpretation: Positive Thrive Assessment: Date of Thrive Assessment Date Thrive assessed 04/26/22 02/25/23 11:02 Const General: well developed; No acute distress Nutritional Appearance: well nourished Orientation/consciousness: patient oriented x3 HENMT Head: Yes normocephalic and Yes atraumatic Eyes General: appearance normal, both eyes and all related structures Pupils: Equal, round and reactive pupils present EOM: EOMs intact bilaterally Resp Effort & Inspection: normal respiratory effort Neuro General: patient oriented x3 and gait normal Cranial nerves: Yes Equal, round and reactive pupils present Psych Affect: normal affect Results AMB Hemoglobin A1c AMB Hemoglobin A1c 6.2 % Last Edit by Tatiana Harding CMA on 02/25/23 11:26 Results Reviewed Results Reviewed: Laboratory Last Values Hgb A1c (Clinic) 6.2 % (4.0-6.0) H 02/25/23 11:06 Assessment and Plan Assessment & Plan (1) Diabetes: Code(s): E11.9 - Type 2 diabetes mellitus without complications Plan: A1c?stable?at?6.2%. Goal?is?less?than?7.0%. Continue?diet-controlled?diabetes (2) Celiac disease: Code(s): K90.0 - Celiac disease Plan: Followed?by?Gastroenterology (3) Left leg pain: Code(s): M79.605 - Pain in left leg Plan: Pain?at?anterolateral?aspect?of?proximal?left?tibia. Likely?an?insertion?point?tendonitis?after?overuse?walking?at?[place]?world Encouraged?ice Relative?rest NSAIDs We?discussed?if?this?is?not?improving?I?can?refer?him?to?physical?therapy (4) Irritability: Code(s): R45.4 - Irritability and anger Plan: Patient?notes?some?irritability?during?the?holidays. Otherwise?stable Gave?patient?a?checklist?for?factors?impacting?mental?health Orders: Orders AMB Hemoglobin A1c Today Z13.9 - Encounter for screening, unspecified Coding Level of Care Code Est Pt Level 4 (95987) Diagnoses Diabetes E11.9 Celiac disease K90.0 Left leg pain M79.605 Irritability R45.4 Additional Codes LAYO-7 Assessment Billing - LAYO-7 Assessment Tool: LAYO-7 Assessment 50505 ([id number])
== END 2023-02-25 13:43 | disposition home or self-care (01) ==
PROVIDERS: PCP Family Medicine; Visit Provider Family Medicine
DX: E11.9 Type 2 diabetes mellitus without complications (principal); K90.0 Celiac disease; M79.605 Pain in left leg; R45.4 Irritability and anger
CPT/HCPCS: 83036; 99214

== ENCOUNTER 2023-03-24 08:45 | Outpatient (AMB) | payer OTHER, SELFPAY ==
[2023-03-24 08:50] VITALS: BMI 29.1
--- NOTE | 2023-03-24 08:50 | MHC.OFFVIS ---
Intake Vital Signs 03/24/23 08:50 Height 5 ft 9 in Weight 197 lb BMI 29.1 Intake Visit Reasons: OV-B/L hand EMG review Intake Note: Anirudh is a 63 year old Right hand dominant male who presents today for a EMG review of both of his hands. EMG was done on 12/08/22. Allergies coconut Allergy (Severe, Verified 03/24/23 08:51) SWELLING tree nut [Tree Nut] Allergy (Severe, Verified 03/24/23 08:51) SWELLING FRUIT, SKINS Allergy (Severe, Uncoded 02/25/23 10:58) SWELLING HPI OV-B/L hand EMG review HPI Details 63-year-old right hand dominant male who presents in the office today for a follow up of bilateral hand numbness and review of his EMG study. The patient was last seen in the office on 11/30/[address] Oleary who ordered the EMG study and requested for him to follow up once it had been obtained. [facility] Medical History COVID-19 Diabetes Celiac disease Surgical History Hx of hand surgery H/O rotator cuff surgery H/O cervical discectomy History of total right knee replacement Family History Other Alcohol abuse Drug abuse Social History Housing: [place] Patient Tobacco Use Status: Former Tobacco user Quit Date: 40 years e-Cigarette/Vaping Use: Never Used service: Yes Current occupational status: unemployed Cognitive needs: No Hearing needs: No Vision needs: No Review of Systems Const All systems reviewed & are unremarkable except as noted in HPI and below Physical Exam Vital Signs: BMI result Body Mass Index 29.1 Const General: cooperative, healthy appearing and no acute distress Resp Effort & Inspection: normal respiratory effort and able to speak in complete sentences Cardio Rate: regular rate Peripheral pulses: Peripheral pulses 2+ throughout GI Palpation (GI): Soft to palpation Skin Lesions: no lesions Rashes: no rashes Extrem Other: Bilateral hands: Normal to inspection. No ecchymosis, erythema, or edema. No active locking or catching in any digits. Numbness and tingling accompanied by pain in the bilateral thumbs, index fingers, and middle fingers, he states this is intermittent. Positive Tinel?s. Capillary refill is brisk. Assessment & Plan Assessment & Plan (1) Right carpal tunnel syndrome: Code(s): G56.01 - Carpal tunnel syndrome, right upper limb (2) Left carpal tunnel syndrome: Code(s): G56.02 - Carpal tunnel syndrome, left upper limb Plan Mr. Shields is a 63-year-old right hand dominant male who presents in the office today for a follow up of bilateral hand numbness and review of his EMG study. The patient was last seen in the office on 11/30/[address] Oleary who ordered the EMG study and requested for him to follow up once it had been obtained. The patient reports he is starting a new job on Tuesday03/28/2023. He would like to move forward with surgical intervention but would like to schedule it in 08/2023. He was given my card while in the office today so he may reach out when he is ready to schedule an appointment to see Dr. Reese for his pre-op H&P. The patient does understand that Dr. Reese is booked to the end of 05/2023 and beginning of 06/2023. He demonstrates understanding of this. He will follow up when he ready to schedule his pre-operative appointment with Dr. Reese at his convenience, or sooner if needed. EMG of the bilateral hand, obtained on 12/08/2022, revealed: Mild compression palsy of the median nerve at the wrist bilaterally consistent with mild carpal tunnel syndrome bilaterally. Normal EMG of the left C5-T1 innervated muscles. Patient Instructions: Scribed for Corrina Randolph PA-C by Guadalupe Patterson medical director/head team physician, on 03/24/2023 at 8:51 am, EST. Coding Level of Care Code Est Pt Level 4 (27117) Diagnoses Right carpal tunnel syndrome G56.01 Left carpal tunnel syndrome G56.02
== END 2023-03-24 09:16 | disposition home or self-care (01) ==
PROVIDERS: PCP Family Medicine; Visit Provider Physician Assistant
DX: G56.03 Carpal tunnel syndrome, bilateral upper limbs (principal)
CPT/HCPCS: 99214

== ENCOUNTER → 2023-03-24 08:45 | Outpatient (BNVA) | payer OTHER, SELFPAY | PROVIDERS: PCP Family Medicine; Visit Provider Physician Assistant | DX: G56.03 Carpal tunnel syndrome, bilateral upper limbs (principal) | CPT/HCPCS: 99212 ==

== ENCOUNTER 2023-07-08 10:00 | Outpatient (AMB) | payer OTHER, SELFPAY ==
--- NOTE | 2023-07-08 10:02 | A.OFFVIS_ITS ---
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 Discussed cost with patient the importance to abstain from gluten due to celiac disease. Reviewed with patient different choices for carbohydrate that are gluten free. Examples of gluten free flour and gluten free bread review on website. Patient will return in this office in 6 months, sooner on as needed basis. He is agreeable to this plan and verbalizes understanding of instructions. Both patient and were given the opportunity to ask questions and all questions answered. TODAY'S VISIT Patient is here today for follow-up. Patient was diagnosed last year with celiac disease. Currently patient states that he is feeling better. As long as that he is avoiding gluten. Patient is using madie to by gluten free products as well as using the up for dining. Patient denies any dyspepsia, dysphagia or odynophagia. Denies any GI concerning symptoms except for occasional post prandial abdominal bloating depends on what he eats. For the most part he has been doing well. Moving his bowels well without any issues. Denies melena, hematochezia, unintentional weight loss or ribbon like stools. Patient reports that he has been feeling well since last visit. [facility] Medical History COVID-19 Diabetes Celiac disease Surgical History Hx of hand surgery H/O rotator cuff surgery H/O cervical discectomy History of total right knee replacement Family History Other Alcohol abuse Drug abuse Social History Housing: House Patient Tobacco Use Status: Former Tobacco user Quit Date: 40 years e-Cigarette/Vaping Use: Never Used service: Yes Current occupational status: unemployed Cognitive needs: No Hearing needs: No Vision needs: No Review of Systems Const Denies weight gain and Denies weight loss ENT Reports no additional complaints, Denies dysphagia and Denies odynophagia Card Reports no additional complaints Resp Reports no additional complaints GI Denies abdominal pain, Denies belching, Denies melena, Reports bloating, Denies change in bowel habits, Denies dysphagia, Denies excessive flatus, Denies dyspepsia, Reports heartburn (Occasional), Denies diarrhea, Denies loose stools, Denies nausea, Denies odynophagia and Denies vomiting Reports no additional complaints Musc Reports no additional complaints Neuro Reports no additional complaints Psych Reports no additional complaints Endo Reports no additional complaints Physical Exam Vital Signs: Last Vital Signs Pulse 60 07/08/23 10:03 BP 91/64 07/08/23 10:03 BMI result Body Mass Index 29.8 Const General: healthy appearing, no acute distress and well developed Nutritional Appearance: well nourished Orientation/consciousness: patient oriented x3 Resp Effort & Inspection: normal respiratory effort, able to speak in complete sentences, no tracheal deviation and symmetric chest movement Auscultation: clear to auscultation bilaterally Cardio Rate: regular rate GI Inspection: Yes normal to inspection and No distended Palpation (GI): Soft to palpation, not firm, nontender and No hepatosplenomegaly present Auscultation: normal bowel sounds General: Yes no CVA tenderness Back/Spine/Pelvis Back: no CVA tenderness Skin General skin exam: elasticity normal, turgor normal and dry skin Neuro General: patient oriented x3 Psych Appearance: grossly normal Mental Status: mental status grossly normal Affect: normal affect Assessment & Plan Assessment & Plan (1) Celiac disease: Code(s): K90.0 - Celiac disease Category: Medical (2) Postprandial epigastric pain: Code(s): R10.13 - Epigastric pain (3) Postprandial diarrhea: Code(s): K52.9 - Noninfective gastroenteritis and colitis, unspecified Plan Occasional postprandial loose stools depending on what he eats otherwise patient is feeling well. Patient is avoiding gluten will test to check for compliance. Will also check vitamin-D, B12 and folate. He will return in the office in 1 year, sooner on as needed basis. He is agreeable to this plan and verbalizes understanding of instructions. He was given the opportunity to ask questions and all questions answered. Thank you for allowing me to participate in his care Orders: Orders Vitamin D 25-OH (D2 and D3) 07/08/23 E55.9 - Vitamin D deficiency, unspecified Transglutaminase IgA 07/08/23 R10.9 - Unspecified abdominal pain Vitamin B12 and Folate 07/08/23 R19.7 - Diarrhea, unspecified Coding Level of Care Code Est Pt Level 3 (55219) Diagnoses Celiac disease K90.0 Postprandial epigastric pain R10.13 Postprandial diarrhea K52.9 Time Spent (min) 30 Comment 20 minutes spent with patient and additional 10 minutes spent reviewing his records
[2023-07-08 10:03] VITALS: BP 91/64; PULSE 60; BMI 29.8
== END 2023-07-08 10:41 | disposition home or self-care (01) ==
PROVIDERS: PCP Family Medicine; Visit Provider Nurse Practitioner Family
DX: K90.0 Celiac disease (principal); R10.13 Epigastric pain; K52.9 Noninfective gastroenteritis and colitis, unspecified
CPT/HCPCS: 99213

== ENCOUNTER → 2023-07-08 10:00 | Outpatient (BNVA) | payer OTHER, SELFPAY | PROVIDERS: PCP Family Medicine; Visit Provider Nurse Practitioner Family | DX: K90.0 Celiac disease (principal); R10.13 Epigastric pain; K52.9 Noninfective gastroenteritis and colitis, unspecified | CPT/HCPCS: 99212 ==

== ENCOUNTER 2023-10-28 13:15 | Outpatient (AMB) | payer OTHER, SELFPAY ==
--- NOTE | 2023-10-28 13:19 | A.OFFPC_ITS ---
Vital Signs 10/28/23 13:25 Height 5 ft 9 in Weight 200 lb BMI 29.5 BP 110/70 Blood Pressure Location Rt brachial Position Sitting Respiration 16 Pulse 79 Pulse Source Pulse Oximeter Temp 97.3 F Temp Source Tympanic Pulse Oximetry (%) 97 Oxygen Delivery Method Room Air Intake Visit Reasons: Extended exam f/u labs+health maint.NEEDS PHQ9 Intake Note: CPE Allergies coconut Allergy (Severe, Verified 10/28/23 13:22) SWELLING tree nut [Tree Nut] Allergy (Severe, Verified 10/28/23 13:22) SWELLING FRUIT NUTS Allergy (Uncoded 10/28/23 13:22) Swelling Tobacco use date assessed: 02/25/23 Dental Screening Dental Screen Date: 02/25/23 HPI Extended exam f/u labs+health maint.NEEDS PHQ9 HPI Details 63 y/o male presents for an extended exa m with f/u labs and health maintenance. No recent labs to review. Diet controlled diabetes. A1c today 10/28/23 is 6.1%. Has complaints of cervical radiculopathy. Does report some hand weakness. He notes he had a cough last night and does report some sore throat. He notes he has been traveling a lot. He does have seasonal allergies. Has been taking zyrtec. Last colonoscopy 2022. They note they had seen some polyps. PFSH Medical History COVID-19 Diabetes Celiac disease Surgical History Hx of hand surgery H/O rotator cuff surgery H/O cervical discectomy History of total right knee replacement Family History Other Alcohol abuse Drug abuse Social History Housing: House Patient Tobacco Use Status: Former Tobacco user e-Cigarette/Vaping Use: Never Used service: Yes Current occupational status: unemployed Cognitive needs: No Hearing needs: No Vision needs: No Questionnaire Thrive Questionnaire Date Thrive assessed: 04/26/22 LAYO-7 AMB Questionnaire LAYO-7 Date LAYO - 7 assessed: 02/25/23 Source: Developed by Drs. Jose Faulkner, Marjorie Gonzalez, Luis Felipe Palacios and colleagues, with an educational juanpablo from [employer]. Review of Systems Const Denies chills, Denies fatigue, Denies fever(s), Denies headache(s) and Denies weakness Eyes Denies change in vision ENT Denies dizziness, Denies headache(s), Denies hearing loss, Denies nasal congestion, Denies sinus pain, Denies sinus pressure and Reports sore throat Card Denies chest pain, Denies lightheadedness, Denies dyspnea and Denies other (palpitations) Resp Denies cough, Denies dyspnea and Denies wheezing GI Denies abdominal pain, Denies melena, Denies hematochezia, Denies change in bowel habits, Denies dyspepsia and Denies nausea Denies hematuria and Denies dysuria Musc Denies abnormal gait, Denies myalgias, Denies arthralgias, Denies numbness and Denies tingling Skin/Breast Denies rash, Denies unusual bruising and Denies wounds Neuro Denies abnormal gait, Denies dizziness, Denies headache(s), Denies memory loss, Denies numbness, Denies Sensory deficit (Neuro), Denies tingling and Denies weakness Psych Denies anxiety, Denies depression and Denies memory loss Endo Denies cold intolerance, Denies fatigue, Denies heat intolerance, Denies polydipsia and Denies polyuria Adrian/Lymph Denies easy bleeding and Denies easy bruising Aller/Immun Denies wheezing Physical exam (Primary Care) Vital Signs: Last Vital Signs Temp 97.3 F 10/28/23 13:25 Pulse 79 10/28/23 13:25 Resp 16 10/28/23 13:25 BP 110/70 10/28/23 13:25 Pulse Ox 97 10/28/23 13:25 Oxygen Delivery Method Room Air 10/28/23 13:25 BMI result Body Mass Index 29.5 Tobacco/Smoking Status: Tobacco use Status Tobacco use date assessed 02/25/23 10/28/23 13:24 Patient Tobacco Use Status Former Tobacco user 10/28/23 13:24 e-Cigarette/Vaping Use Never Used 10/28/23 13:24 Thrive Assessment: Date of Thrive Assessment Date Thrive assessed 04/26/22 10/28/23 13:24 Const General: no acute distress, well developed, alert and awake Nutritional Appearance: well nourished Orientation/consciousness: patient oriented x3 HENWV Head: Yes normocephalic and Yes atraumatic Ears: hearing grossly normal bilaterally and TM's normal bilaterally General nose exam: Normal external nose present and Normal nares present Mouth: Normal oral and palatal mucosa present and moist mucous membranes Teeth and gingiva: dentition normal Throat: Yes posterior oropharynx normal Eyes General: appearance normal, both eyes and all related structures Pupils: Equal, round and reactive pupils present and Pupil accommodation reflex normal EOM: EOMs intact bilaterally Neck Neck: Yes normal visual inspection, Yes no lymphadenopathy and Yes trachea midline Thyroid: Thyroid normal Carotids: no bruits Lymphatic: no lymphadenopathy noted Chest Chest palpation & inspection: normal inspection of the chest Resp Effort & Inspection: normal respiratory effort Auscultation: clear to auscultation bilaterally Cardio Rate: regular rate Rhythm: regular rhythm Heart sounds: S1 normal heart sound present, S2 normal heart sound present, no gallops, no murmurs and no rubs Bruits: no abdominal aortic bruits and no carotid bruits GI Palpation (GI): No Abdominal aortic bruit present, Soft to palpation, nontender, No hepatosplenomegaly present and No Rebound tenderness present Auscultation: normal bowel sounds General: Yes no CVA tenderness Back/Spine/Pelvis Back: no CVA tenderness Cervical Spine: cervical ROM normal and No Cervical spine tenderness Thoracic/Lumbar Spine: thoraco-lumbar ROM normal, No pain with thoraco-lumbar ROM, No thoracic spinal tenderness and No lumbar spinal tenderness Skin Lesions: no lesions Rashes: no rashes Trauma: no lacerations or abrasions Wounds: no wounds Nails: normal Neuro General: patient oriented x3 Cranial nerves: Yes Equal, round and reactive pupils present Cognition (Neuro): normal cognition Gait exam (Neuro): Normal gait present Motor exam (neuro): 5/5 motor strength present throughout Sensory Exam: No Sensory deficit (Neuro) Deep tendon reflexes (DTR's): Right patellar reflex intensity grade: 2+ and Left patellar reflex intensity grade: 2+ Extrem General: Yes normal to inspection and No edema Psych Appearance: grossly normal Affect: normal affect Attitude: cooperative Thought process: Normal thought process present Assessment and Plan Assessment & Plan (1) Diabetes: Code(s): E11.9 - Type 2 diabetes mellitus without complications Plan: A1c?is?6.1%.??Good?control.??Goal?is?less?than?7.0% Continue?diet?control Patient?says?he?had?an appointment?with?his?eye?doctor?in?the ?last?year.??Will?request?report (2) Cough: Code(s): R05.9 - Cough, unspecified Plan: Mild?cough?and?rash?with?scratchy?throat - throat?shows?minimal?erythema?and?no?evidence?of?infection. Patient?has?environmental?allergies Likely?allergies Continue?Zyrtec?and?he?can?use?some?Benadryl?at?night?for?the?next?5-7 days (3) Cervical radiculopathy: Code(s): M54.12 - Radiculopathy, cervical region Plan: History?of?cervical?disc?surgery?and?patient?has?some?tingling?and?weakness?and? all?4?distal?extremities Also?has?some?specific?tingling?in?hands?in?a?carpal?tunnel?distribution - likely?some?overlap However,?patient?also?has?some?weakness and?tingling?in?lower?extremities?as?well?and?given?his?history, will?have?him?follow-up?with?Dr. Meneses again (4) Numbness in both hands: Code(s): R20.0 - Anesthesia of skin Plan: As?above Seems?to?have?some?overlap?between?a?pr obable?cervical?radiculopathy?and?also?carpal?tunnel?syndrome - Phalen's?test?positive Advised?he?follow-up?with?his?hand?surgeon,??Mary Ann and?patient?says?he?will?call (5) Screening for prostate cancer: Code(s): Z12.5 - Encounter for screening for malignant neoplasm of prostate Plan: Water?PSA (6) Screening for colon cancer: Code(s): Z12.11 - Encounter for screening for malignant neoplasm of colon Plan: Followed?by?[facility]?GI He?had?a?colonoscopy?last?year?and?says?he?has?follow-up?next?year Up-to-date (7) Adult general medical exam: Code(s): Z00.00 - Encounter for general adult medical examination without abnormal findings Plan: 63-year-old?male?presents?for?an?extended?exam Encouraged?healthy?diet?with?active?lifestyle?and?plenty?of?exercise Orders: Orders Comprehensive [place]. Panel Fast Today Z00.00 - Encounter for general adult medical examination without abnormal findings Microalbumin, Random (w Creat) Today I10 - Essential (primary) hypertension TSH reflex Free T4 Today Z00.00 - Encounter for general adult medical examination without abnormal findings UA and rflx microscopic Today Z00.00 - Encounter for general adult medical examination without abnormal findings AMB Hemoglobin A1c Today Z13.9 - Encounter for screening, unspecified Complete Blood Count Auto Diff Today Z00.00 - Encounter for general adult medical examination without abnormal findings Lipid Panel Today Z00.00 - Encounter for general adult medical examination without abnormal findings Prostate Specific Antigen Scr Today Z12.5 - Encounter for screening for malignant neoplasm of prostate Referrals Orthopedics Referral G54.9 - Nerve root and plexus disorder, unspecified, M25.78 - Osteophyte, vertebrae, M50.30 - Other cervical disc degeneration, unspecified cervical region, M54.12 - Radiculopathy, cervical region Coding Level of Care Code Est Pt Level 4 (64635) Diagnoses Diabetes E11.9 Cough R05.9 Cervical radiculopathy M54.12 Numbness in both hands R20.0 Screening for prostate cancer Z12.5 Screening for colon cancer Z12.11 Adult general medical exam Z00.00
[2023-10-28 13:25] VITALS: BP 110/70; PULSE 79; RESP 16; TEMP 36.3; O2SAT 97; BMI 29.5
== END 2023-10-28 14:00 | disposition home or self-care (01) ==
PROVIDERS: PCP Family Medicine; Visit Provider Family Medicine
DX: E11.9 Type 2 diabetes mellitus without complications (principal)
CPT/HCPCS: 83036; 99214

== ENCOUNTER 2023-12-03 07:13 | Outpatient (REF) | payer OTHER, SELFPAY ==
[2023-12-03 07:35] LABS: MANUAL DIFF FLAG NO
[2023-12-03 08:05] LABS: Basophils Percent Auto 0.7 % (0-2); Eosinophils Absolute Auto 0.1 X10*3/uL (0.0-0.4); Eosinophils Percent Auto 2.2 % (0-4); Hematocrit 43.2 % (42.0-52.0); Hemoglobin 14.7 g/dl (14.0-18.0); Imm Gran Abs Auto 0.01 X10*3/uL (0.00-0.03); Imm Gran Pct Auto 0.2 % (0.0-0.4); Lymphocytes Absolute Auto 1.3 X10*3/uL (1.2-4.9); Lymphocytes Percent Auto 23.3 % (20-40); Mean Corpuscular Hemoglobin 29.8 pg (27.0-33.0); Mean Corpuscular Volume 87.6 fL (80.0-98.0); Mean Platelet Volume 9.1 fL (9.4-12.4); Monocytes Absolute Auto 0.4 X10*3/uL (0.1-1.2); Monocytes Percent Auto 7.3 % (2-11); Neutrophils Absolute Auto 3.6 x10*3/uL (2.0-8.3); Neutrophils Percent Auto 66.3 % (45-73); Platelet Count 193 X10*3/uL (160-400); Red Blood Count 4.93 X10*6/uL (4.60-5.80); Red Cell Distribution Width 13.4 % (11.0-16.0); White Blood Count 5.5 X10*3/uL (4.8-10.8)
[2023-12-03 08:35] LABS: Alanine Aminotransferase 32 U/L (0-40); Albumin Level 4.4 g/dL (3.5-5.0); Alkaline Phosphatase 71 U/L (39-117); Anion Gap 11 (12-20); Aspartate Amino Transferase 28 U/L (5-37); Bilirubin Total 0.4 mg/dL (0.0-1.0); Blood Urea Nitrogen 19 mg/dL (9-16); Calcium 9.6 mg/dL (8.4-10.2); Carbon Dioxide 23 mmol/L (22-29); Chloride 110 mmol/L (96-108); Cholesterol 146 mg/dL (<200); Estimated Glomerular Filt Rate > 60; Glucose Fasting 136 mg/dL (60-99); HDL Cholesterol 35 mg/dL (>40); LDL Cholesterol Calculated 97 mg/dL (<100); Potassium 4.3 mmol/L (3.3-5.1); Sodium 140 mmol/L (135-145); Total Protein 7.1 g/dL (6.5-8.0); Triglycerides 72 mg/dL (<150)
[2023-12-03 08:43] LABS: Appearance Urine Clear; Color Urine Yellow; Glucose Urine UA Negative (Negative); Leukocyte Esterase Urine Negative (Negative); Nitrite Urine Negative (Negative); PH 5.5 (5.0-9.0); Urine Blood Negative (Negative); Urine Ketones Negative (Negative); Urine Protein Negative (Neg-Trace)
[2023-12-03 08:50] LABS: TSH reflex Free T4 1.26 uIU/mL (0.32-4.0)
[2023-12-03 08:59] LABS: Folate 5.9 ng/mL (> or = 4.0); Prostate Specific Antigen Scr 0.38 ng/mL (<0.05-4.0); Vitamin B12 314 pg/mL (200-900)
[2023-12-03 09:19] LABS: Creatinine Urine 38.76 mg/dL; Microalbumin Urine < 5.0 mg/L
[2023-12-05 20:28] LABS: Transglutaminase IgA >250.0 U/mL
[2023-12-07 15:29] LABS: Vitamin D 25-OH, D2 <4 ng/mL; Vitamin D 25-OH, D3 34 ng/mL; Vitamin D 25-OH, Total 34 ng/mL (30-100)
== END 2023-12-03 07:14 | disposition home or self-care (01) ==
LOC: HO.LAB 07:13
PROVIDERS: Nurse Practitioner Family; PCP Family Medicine; Visit Provider Family Medicine
DX: Z00.00 Encounter for general adult medical examination without abnormal findings (principal); R10.9 Unspecified abdominal pain; I10 Essential (primary) hypertension; Z12.5 Encounter for screening for malignant neoplasm of prostate; E55.9 Vitamin D deficiency, unspecified; R19.7 Diarrhea, unspecified
CPT/HCPCS: 36415; 80053; 80061; 81003; 82043; 82306; 82570; 82607; 82746; 84153; 84443; 85025; 86364

== ENCOUNTER 2023-12-06 16:58 | Outpatient (AMB) | payer OTHER, SELFPAY ==
--- NOTE | 2023-12-06 16:54 | A.OFFPC_ITS ---
Intake Visit Reasons: f/u CPE-labs via telemedicine Intake Note: lab review Allergies coconut Allergy (Severe, Verified 12/06/23 16:54) SWELLING tree nut [Tree Nut] Allergy (Severe, Verified 12/06/23 16:54) SWELLING FRUIT NUTS Allergy (Uncoded 12/06/23 16:54) Swelling Tobacco use date assessed: 02/25/23 Dental Screening Dental Screen Date: 02/25/23 HPI f/u CPE-labs via telemedicine HPI Details 63 y/o male presents to f/u CPE-labs via telemedicine. Labs drawn 12/03/23. Reviewed labs with pt. Triglycerides 72. TC 147. LDL 97. HDL low at 35. PSA 0.38. PFSH Medical History COVID-19 Diabetes Celiac disease Surgical History Hx of hand surgery H/O rotator cuff surgery H/O cervical discectomy History of total right knee replacement Family History Other Alcohol abuse Drug abuse Social History Housing: House Patient Tobacco Use Status: Former Tobacco user e-Cigarette/Vaping Use: Never Used service: Yes Current occupational status: unemployed Cognitive needs: No Hearing needs: No Vision needs: No Questionnaire Thrive Questionnaire Date Thrive assessed: 04/26/22 LAYO-7 AMB Questionnaire LAYO-7 Date LAYO - 7 assessed: 02/25/23 Source: Developed by Drs. Jose Faulkner, Marjorie Gonzalez, Luis Felipe Palacios and colleagues, with an educational juanpablo from [employer]. Review of Systems Const Denies chills, Denies fatigue, Denies fever(s), Denies headache(s) and Denies weakness ENT Denies dizziness and Denies headache(s) Card Denies dyspnea Resp Denies cough, Denies dyspnea, Denies wheezing and Denies other (shortness of breath) Musc Denies numbness and Denies tingling Neuro Denies dizziness, Denies headache(s), Denies numbness, Denies tingling and Denies weakness Psych Denies anxiety and Denies depression Endo Denies fatigue Aller/Immun Denies wheezing Physical exam (Primary Care) Tobacco/Smoking Status: Tobacco use Status Tobacco use date assessed 02/25/23 12/06/23 16:56 Patient Tobacco Use Status Former Tobacco user 12/06/23 16:56 e-Cigarette/Vaping Use Never Used 12/06/23 16:56 Thrive Assessment: Date of Thrive Assessment Date Thrive assessed 04/26/22 12/06/23 16:56 Telehealth Telehealth Telehealth Platform: Telephone Location of provider rendering services: practice address Location of patient: address on file Patient Identification confirmed using: Name, : Yes Telehealth method: voice only Patient verbally consented to treatment: Yes Patient verbally consented to billing insurance company: Yes Patient informed of any privacy concerns related to visit: Yes Minutes spent on Phone/Video with Pt.: 7 Coding Level of Care Code Tele Est Pt Level 2 (79007) Diagnoses Diet-controlled diabetes mellitus E11.9 Low HDL (under 40) E78.6 Screening for prostate cancer Z12.5 Assessment & Plan Assessment & Plan (1) Diet-controlled diabetes mellitus: Code(s): E11.9 - Type 2 diabetes mellitus without complications Category: Medical Plan: History?of?diet?controlled?diabetes.??A1c?controlled/in?pre?diabetes?range Encouraged?diet?lower?in?sugars?and?starches Continue?active?lifestyle?and?exercise (2) Low HDL (under 40): Code(s): E78.6 - Lipoprotein deficiency Category: Medical Plan: Mildly?low?HDL?and?this?was?much?lower?previously. Continue?to?work?at?active?lifestyle?and?try?to?increase?activity/exercise (3) Screening for prostate cancer: Code(s): Z12.5 - Encounter for screening for malignant neoplasm of prostate Category: Medical Plan: PSA?within?normal?range Will?continue?to?monitor?annually
== END 2023-12-06 17:05 ==
LOC: HO.HMCFM 16:58
PROVIDERS: PCP Family Medicine; Visit Provider Family Medicine
DX: E11.9 Type 2 diabetes mellitus without complications (principal); E78.6 Lipoprotein deficiency; Z12.5 Encounter for screening for malignant neoplasm of prostate

== ENCOUNTER → 2023-12-06 16:58 | Outpatient (BNVA) | payer OTHER, SELFPAY | PROVIDERS: PCP Family Medicine; Visit Provider Family Medicine ==

== ENCOUNTER 2024-03-09 14:21 | Outpatient (AMB) | payer OTHER, SELFPAY ==
--- NOTE | 2024-03-09 14:35 | MHC.PC.OV ---
Vital Signs 03/09/24 14:41 Height 5 ft 9 in Weight 196 lb 2 oz BMI 29.0 BP 118/70 Blood Pressure Location Rt brachial Position Sitting Respiration 14 Pulse 74 Pulse Source Pulse Oximeter Pulse Oximetry (%) 97 Oxygen Delivery Method Room Air Intake Visit Reasons: f/u diabetes Intake Note: f/u DM Allergies coconut Allergy (Severe, Verified 03/09/24 14:37) SWELLING tree nut [Tree Nut] Allergy (Severe, Verified 03/09/24 14:37) SWELLING FRUIT NUTS Allergy (Uncoded 12/06/23 16:54) Swelling Tobacco use date assessed: 02/25/23 Dental Screening Dental Screen Date: 02/25/23 HPI f/u diabetes HPI Details 64 y/o male presents to f/u diabetes. Had went to the emergency department about a month ago for acute diverticulitis. He notes this has improved. Last A1c 10/28/23 6.1%. A1c today 03/09/24 6.4%. Reports L sided chest pain. [facility] Medical History COVID-19 Diabetes Celiac disease Surgical History Hx of hand surgery H/O rotator cuff surgery H/O cervical discectomy History of total right knee replacement Family History Other Alcohol abuse Drug abuse Social History Housing: House Patient Tobacco Use Status: Former Tobacco user e-Cigarette/Vaping Use: Never Used service: Yes Current occupational status: unemployed Cognitive needs: No Hearing needs: No Vision needs: No Questionnaire PHQ-9 Over the last 2 weeks, how often have you been bothered by any of the following problems? 1. Little interest or pleasure in doing things: not at all 2. Feeling down, depressed, or hopeless: several days 3. Trouble falling or staying asleep, or sleeping too much: several days 4. Feeling tired or having little energy: several days 5. Poor appetite or overeating: not at all 6. Feeling bad about yourself - or that you are a failure or have let yourself or your family down: not at all 7. Trouble concentrating on things, such as reading the newspaper or watching television: not at all 8. Moving or speaking so slowly that other people could have noticed. Or the opposite - being so fidgety or restless that you have been moving around a lot more than usual: not at all 9. Thoughts that you would be better off or of hurting yourself in some way: not at all Total score: 3 Source: Developed by Drs. Jose Faulkner, Marjorie Gonzalez, Luis Felipe Palacios and colleagues, with an educational juanpablo from [employer]. Thrive Questionnaire Date Thrive assessed: 04/26/22 I am a: Patient What is your living situation today?: I have a steady place to live Within the past 12 months, did the food you bought not last and you didn't have the money to get more?: Never true Within the past 12 months, did you worry whether your food would run out before you got money to buy more?: Never true Do you have trouble paying for medicines?: No Do you have trouble getting transportation to medical appointments?: No Do you have trouble paying your heating and electricity bill?: No Do you have trouble taking care of your child, family member or friend?: No Do you have trouble with day-to-day activities such as bathing, preparing meals, shopping, managing finances, etc.?: No Are you currently unemployed and looking for a job?: No Are you interested in more education?: No Please select the resources that you would like help with: None Currently or been in a relationship where the following occur: No concerns reported THRIVE Score: 0 AUDIT C Alcohol Use Questionnaire (AUDIT-C) 1. How often do you have a drink containing alcohol?: Monthly or less 2. How many drinks containing alcohol do you have on a typical day when you are drinking?: 1 or 2 3. How often do you have six or more drinks on one occasion?: Less than monthly Total Score: 2 LAYO-7 AMB Questionnaire LAYO-7 Date LAYO - 7 assessed: 02/25/23 Feeling nervous, anxious, or on edge: 0 = Not at all Not being able to stop or control worryin = Not at all Worrying too much about different things: 1 = Several days Trouble relaxin = Several days Being so restless that it is hard to sit still: 1 = Several days Becoming easily annoyed or irritable: 1 = Several days Feeling afraid as if something awful might happen: 0 = Not at all Total LAYO-7 score (0-4 normal; 5-9 mild; 10-14 moderate; 15-21 severe): 4 Source: Developed by Drs. Jose Faulkner, Marjorie Gonzalez, Luis Felipe Palacios and colleagues, with an educational juanpablo from [employer]. Review of Systems Const Denies chills, Denies fatigue, Denies fever(s), Denies headache(s) and Denies weakness ENT Denies dizziness and Denies headache(s) Card Reports chest pain and Denies dyspnea Resp Denies cough, Denies dyspnea, Denies wheezing and Denies other (shortness of breath) Musc Denies numbness and Denies tingling Neuro Denies dizziness, Denies headache(s), Denies numbness, Denies tingling and Denies weakness Psych Denies anxiety and Denies depression Endo Denies fatigue Aller/Immun Denies wheezing Physical exam (Primary Care) Vital Signs: Last Vital Signs Pulse 74 03/09/24 14:41 Resp 14 03/09/24 14:41 BP 118/70 03/09/24 14:41 Pulse Ox 97 03/09/24 14:41 Oxygen Delivery Method Room Air 03/09/24 14:41 BMI result Body Mass Index 29.0 Tobacco/Smoking Status: Tobacco use Status Tobacco use date assessed 02/25/23 03/09/24 14:42 Patient Tobacco Use Status Former Tobacco user 03/09/24 14:42 e-Cigarette/Vaping Use Never Used 03/09/24 14:42 PHQ-9: PHQ-9 Score PHQ-9: Total score 3 03/09/24 15:12 Thrive Assessment: Date of Thrive Assessment Date Thrive assessed 04/26/22 03/09/24 14:42 Currently or been in a relationship where the following occur: No concerns reported Const General: well developed; No acute distress Nutritional Appearance: well nourished Orientation/consciousness: patient oriented x3 HENMT Head: Yes normocephalic and Yes atraumatic Eyes General: appearance normal, both eyes and all related structures Pupils: Equal, round and reactive pupils present EOM: EOMs intact bilaterally Resp Effort & Inspection: normal respiratory effort Auscultation: clear to auscultation bilaterally Cardio Rate: bradycardic Rhythm: regular rhythm Heart sounds: S1 normal heart sound present, S2 normal heart sound present, no gallops, no murmurs and no rubs Neuro General: patient oriented x3 and gait normal Cranial nerves: Yes Equal, round and reactive pupils present Psych Affect: normal affect Coding Level of Care Code Est Pt Level 4 (43028) Diagnoses Diet-controlled diabetes mellitus E11.9 Left-sided chest pain R07.9 Lump of skin R22.9 Assessment & Plan Assessment & Plan (1) Diet-controlled diabetes mellitus: Code(s): E11.9 - Type 2 diabetes mellitus without complications Category: Medical Plan: A1c?has?climbed?to?6.4%. Still?controlled. Work?on?diet?lower?in?sugars?and?starches.??Continue?diet?control (2) Left-sided chest pain: Code(s): R07.9 - Chest pain, unspecified Category: Medical Plan: Recent?episode?of?left-sided?chest?pain EKG: ?Sinus?bradycardia,?51?beats?per?minute, normal?axis,?no?hypertrophy,?no?ST-T-wave?changes EKG?is?reassuring. No?further?chest?pain?no?chest?pain?with?exertion Will?check?a?chest?x-ray?Check?chest?x-ray He?will?let?me?know?if?pain?returns?or?is?occurring?with?any?exertion (3) Lump of skin: Code(s): R22.9 - Localized swelling, mass and lump, unspecified Category: Medical Plan: 2?cm?lump?at?anterior?left?chest/costal?margin?which?was?noticed?incidentally?due?to?left?chest?pain. Appears?to?be?a?separate?issue?and?not?causing?the?episode?of?chest?pain Check?ultrasound?of?chest?wall. Orders: Orders AMB EKG-In Office Today R07.9 - Chest pain, unspecified US chest Today R22.9 - Localized swelling, mass and lump, unspecified XR chest 2V Today R07.9 - Chest pain, unspecified
[2024-03-09 14:41] VITALS: BP 118/70; PULSE 74; RESP 14; O2SAT 97; BMI 29.0
--- OUTSIDE RECORDS SUMMARY | 2024-03-09 15:46 | XMS_ITS ---
Author Name [facility] Organization Unknown History of Medication Use Medication Directions Dispensed Refills Start Date End Date [facility] zinc gluconate 50 MG tablet Take 1 tablet (50 mg total) by mouth daily. 02/17/2024 03/06/9999 active Cannabis (MARIJUANA) [facility] Prescription Strength Inhale. 02/17/2024 03/06/9999 act suki saccharomyces boulardii (FLORASTOR) 250 MG capsule Take 1 capsule (250 mg total) by mouth 2 (two) times a day. 02/17/2024 03/06/9999 active PANTOprazole (PROTONIX) 40 MG EC tablet Take 1 tablet (40 mg total) by mouth every morning. 02/17/2024 03/06/9999 active Cetirizine HCl (ZyrTEC) 10 MG Cap Take 1 tablet by mouth. 02/17/2024 03/06/9999 active Problems Problem Status Onset Date Problem Type Date of Resoluti on Source Neck pain active 2023-12-16 ProblemAct [facility] S/P cervical spinal fusion active 2023-12-16 ProblemAct [facility] Numbness and tingling of both upper extremities active 2023-12-16 ProblemAct [facility]
== END 2024-03-09 15:45 | disposition home or self-care (01) ==
PROVIDERS: PCP Family Medicine; Visit Provider Family Medicine
DX: E11.9 Type 2 diabetes mellitus without complications (principal); R07.9 Chest pain, unspecified; R22.9 Localized swelling, mass and lump, unspecified

== ENCOUNTER → 2024-03-09 14:21 | Outpatient (BNVA) | payer OTHER, SELFPAY | PROVIDERS: PCP Family Medicine; Visit Provider Family Medicine | DX: E11.9 Type 2 diabetes mellitus without complications (principal); R07.9 Chest pain, unspecified; R22.2 Localized swelling, mass and lump, trunk | CPT/HCPCS: 83036; 96127 ==

== ENCOUNTER 2024-04-05 14:44 | Outpatient (REF) | payer OTHER, SELFPAY ==
--- NOTE | ~2024-04-05 | US_ITS ---
EXAMINATION: US CHEST HISTORY: R22.9 - Localized swelling, mass and lump, unspecified COMPARISON: There are no prior studies for comparison. FINDINGS: Sonographic examination of a palpable abnormality of the left anterior chest wall was performed. No mass or sonographic abnormality is identified. US/US chest IMPRESSION: No sonographic abnormality seen to correspond to the palpable findings in the left anterior chest wall. Electronically signed by: Jose Gillette MD 04/06/2024 08:45 AM [facility]
--- NOTE | ~2024-04-05 | XR_ITS ---
EXAMINATION: XR CHEST 2 VIEWS HISTORY: R07.9 - Chest pain, unspecified COMPARISON: There are no prior studies for comparison. FINDINGS: PA and lateral views of the chest are submitted. The lungs are expanded and clear. There is no pleural effusion, pneumothorax, or pulmonary vascular congestion. The heart is normal in size. The bones are intact. XR/XR chest 2V IMPRESSION: Clear lungs. Electronically signed by: Jose Gillette MD 04/05/2024 03:09 PM [facility]
--- OUTSIDE RECORDS SUMMARY | 2024-04-05 18:39 | XMS_ITS | Clinical Summary ---
Author Organization [facility] Address [address] [place] [address] Care Team Providers Care Harbor Master Name Role Phone Ankit Law MD Primary Care Provider [phone] Allergies Active Allergy Reactions Criticality Noted Date Comments Coconut Itching Low 12/16/2023 Hydromorphone Other (See Comments) 12/16/2023 Seizure like activity, sweats Meloxicam Other (See Comments) High 04/04/2014 States question passed out or seizure unsure Nuts Anaphylaxis High 12/16/2023 Peaches Anaphylaxis High 12/16/2023 Plums Anaphylaxis High 12/16/2023 Watermelon Anaphylaxis High 12/16/2023 Medications Medication Sig Dispensed Refills Start Date End Date Status Cetirizine HCl (ZyrTEC) 10 MG Cap Take 1 tablet by mouth. Active PANTOprazole (PROTONIX) 40 MG EC tablet Take 1 tablet (40 mg total) by mouth every morning. 11/01/2023 Active zinc gluconate 50 MG tablet Take 1 tablet (50 mg total) by mouth daily. Active saccharomyces boulardii (FLORASTOR) 250 MG capsule Take 1 capsule (250 mg total) by mouth 2 (two) times a day. Active Cannabis (MARIJUANA) [facility] Pres[facility] Strength Inhale. Act suki Active Problems Problem Noted Date Diagnosed Date Bilateral carpal tunnel syndrome 03/15/2024 Neck pain 12/16/2023 Numbness and tingling of both upper extremities 12/16/2023 S/P cervical spinal fusion 12/16/2023 Encounters Date Type Department Care Team Description 03/15/2024 1:00 PM EST Telemedicine [facility] Physical Medicine & Rehab [place] [address] [phone] Geoff Velazco MD Numbness and tingling of both upper extremities (Primary Dx); S/P cervical spinal fusion; Bilateral carpal tunnel syndrome 03/15/2024 Travel 02/15/2024 8:00 AM EST Procedure visit [facility] [place] [address] [place] [phone] Geoff Velazco MD McInerney, Brian George, MD S/P cervical spinal fusion (Primary Dx); Numbness and tingling of both upper extremities 02/15/2024 Scanned Document [facility] [address] [place] [phone] Luz Peralta MA 02/15/2024 Scanned Document [facility] [address] [place] [phone] Luz Peralta MA 02/15/2024 Scanned Document [facility] [address] [place] [phone] Luz Peralta MA 02/15/2024 Travel 01/12/2024 Scanned Document [facility] [address] [place] [phone] Richard Zavala MA from Last 3 Months Social History Tobacco Use Types Packs/Day Years Used Date Smoking Tobacco: Never Smokeless Tobacco: Never Tobacco Cessation:Counseling Given: Not Answered Alcohol Use Standard Drinks/Week Comments Yes 0 (1 standard drink = 0.6 oz pur e alcohol) [facility] [place] of Occupat ional Health - Occupational Stress Questionnaire Answer Date Recorded Do you feel stress - tense, restless, nervous, or anxious, or unable to sleep at night because your mind is troubled all the time - these days? To some extent 12/16/2023 Physical Activity Answer Date Recorded On average, how many days pe r week do you engage in moderate to strenuous exercise (like a brisk walk)? 0 days 02/15/2024 On average, how many minutes do you exercise per day at this level? 0 min 02/15/2024 Sex and Gender Information Value Date Recorded Sex Assigned at Male 11/16/2023 2:07 PM EDT Gender Identity Male 11/16/2023 2:07 PM EDT Sexual Orientation Heterosexual (straight) 11/15 2:07 PM EDT Last Filed Vital Signs Vital Sign Reading Time Taken Comments Blood Pressure 105/66 02/15/2024 7:52 AM EST Pulse 61 02/15/2024 7:52 AM EST Temperature - - Respiratory Rate - - Oxygen Saturation 97% 02/15/2024 7:52 AM EST Inhaled Oxygen Concentration - - Weight - - Height - - Body Mass Index - - Plan of Treatment Health Maintenance Due Date Last Done Comments Hepatitis C Virus Screening 1960 HIV Screening 1973 DTaP/Tdap/Td Vaccines (1 - Tdap) 1979 Colonoscopy 2005 Pneumococcal Vaccines 50+ (1 of 1 - PCV) 2010 Zoster (Shingles) Vaccine (1 of 2) 2010 Influenza Vaccine 10/06/2023 COVID-19 Vaccine ( - 2023-2 5 season) 2023 RSV Vaccine 60 years and old er and Patients (1 - 1-dose 75+ series) 2035 Hepatitis B Vaccines Aged Out No long er eligible based on patient's age to complete this topic Care Teams Harbor Master Relationship Specialty Start Date End Date Ankit Law MD [address] [place] [address] Dr Hickey, [place] [address] PCP - General Family Medicine 11/16/23
--- OUTSIDE RECORDS SUMMARY | 2024-04-05 18:39 | XMS_ITS | Encounter Summary ---
Author Organization [facility] Address [address] [place] [address] Care Team Providers Care Lapping Machine Set Up Operator Name Role Phone Ankit Law MD Primary Care Provider [phone] Reason for Visit * Reason Comments Follow-up Follow up post EMG Encounter Details Date Type Department Care Team (Late st Contact Info) Description 03/15/2024 1:00 PM EST Telemedicine [facility] Physical Medicine & Rehab [place] [phone] Geoff Velazco MD [address] [place] [address] Numbness and tingling of both upper extremities (Primary Dx); S/P cervical spinal fusion; Bilateral carpal tunnel syndrome Social History Tobacco Use Types Packs/Day Years Used Date Smoking Tobacco: Never Smokeless Tobacco: Never Alcohol Use Standard Drinks/Week Comments Yes 0 (1 standard drink = 0.6 oz pur e alcohol) [facility] [place] of Occupat ional Health - Occupational Stress [...] Orientation Heterosexual (straight) 11/15 2:07 PM EDT documented as of this encounter Progress Notes * Geoff Velazco MD - 03/15/2024 1:00 PM EST Assessment & Plan Anirudh was seen today for follow-up. Diagnoses and all orders for this visit: Numbness and tingling of both upper extremities S/P cervical spinal fusion Bilateral carpal tunnel syndrome Anirudh presents in follow-up via telehealth appointment to review EMG results which confirmed electrodiagnostic evidence of moderate to severe carpal tunnel syndrome in both the left and right wrists. There was no electrodiagnostic evidence of cervical radiculopathy. Given these findings we had a long discussion about treatment options to help manage his bilateral hand numbness. Recommendations were to schedule an appointment with his orthopedic hand surgeon to discuss carpal tunnel release surgery since his EMG demonstrated more severe pathology that typically warrants surgical intervention. In the interim I did suggest night splinting to help manage his symptoms. Furthermore, I do not feel like there is any further evaluation necessary for his neck and would only consider follow-up following his carpal tunnel surgery if he were to experience persistent upper extremity radiating pain and paresthesias. He he was agreeable to the treatment plan and will follow-up in my clinic on an as-needed basis. Total time spent with the patient for this telephone visit was 21 min. Communication barriers and lifestyle preferences were addressed with the patient. The care plan including medications and self-management goals were reviewed to the best of the patient???s abilities.All questions and concerns were answered. Patient and/or family verbalized understanding of the plan of care. Subjective Subjective Patient ID: Anirudh Anderson is a 64 y.o. male. Anirudh was last seen in follow-up on 12/16/2023 with the following plan of care: Anirudh is a pleasant 63-year-old male with past medical history of GERD, prediabetes, celiac's disease and cervical spinal stenosis status post C4-5, C5- 6 fusion (2021) who presents to PM&R clinic for evaluation of neck pain with associated numbness/tingling in bilateral upper extremities. Today's history and exam findings were concerning for possible cervical radiculitis but differential diagnosis includes entrapment neuropathy of the median and ulnar nerves, functional entrapment of thebrachial plexus. Since he has not undergone recent imaging, recommendations were to obtain updated x-rays of the cervical spine today with flexion-extension views. Will also obtain updated MRI of thecervical spine since his last MRI was prior to surgery. Given his reported sensory disturbance in bilateral upper extremities will order nerve conduction study and EMG. Once MRI and EMGs have been completed we will see him back to review and discuss results. He may be a candidate for repeat course of physical therapy and/or trial of injections. He was advised to seek urgent medical care if he were to experience any red flag symptoms. PLAN: 1) MRI cervical spine from 2021 report reviewed. 2) Xray of cervical spine ordered today ([facility]) 3) MRI cervical spine with and without contrast ([facility]) 4) Referral Dr Worrell for NCS/EMG lateral upper extremities Follow-up once EMG and MRI cervical spine completed Patient's history and clinical exam findings reviewed with the patient today with a brief discussion regarding the relevant anatomy and pathophysiology. Patient's diagnosis, prognosis, and treatment options reviewed including a discussion of the relative risks versus benefits of each treatment. Patient expressed understanding of the plan and agreed to the recommendations. All questions and concerns were addressed. Nerve conduction study/EMG of bilateral upper extremities performed on 02/15/[address] Worrell: Conclusion: This was an abnormal electrodiagnostic evaluation of the bilateral upper extremities. Of note, the snaps for median sensory studies were absent bilaterally. There were significantly prolonged latencies with median motor studies bilaterally. CMAP amplitudes were still within normal limits BL. However there were signs of acute denervation noted on needle EMG of the APB 1 or 2 runs on the left and right. There were no additional signs of acute denervation noted throughout the rest ofthe bilateral upper extremity examination. Given the absent sensory studies, prolonged latency of motor studies and 1-2 runs of P's and fibs on needle EMG of the APB. 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 X-ray cervical spine (12/16/2023): FINDINGS: Postsurgical changes of fusion at C4-C5-C6 levels. Marked degenerative changes with loss of disc space height and hypertrophic change at C3-C4 and C6-C7. Minimal anterior subluxation of C2 on C3. Bilateral multilevel facet arthritis with neural foraminal encroachment. IMPRESSION: 1. Postsurgical changes from fusion at C4-C5 and C6 levels. 2. Marked degenerative changes at C3-C4 and C6-C7. Patient was seen today for a visit via telehealth technology. Patient and provider interacted via Telephonic communication due to a lack of video conferencing option Before beginning the virtual visit, patient identity was confirmed by Name and Date of Patient phone number confirmed Preferred: [phone] Patient location: Patient is located within a home setting Home address [address] [place] [address] [place] [phone] Additional persons present during telehealth visit: No other parties present At time of session, this provider is licensed to provide care in the state in which the patient is currently located. Provider License #: , [place]: [id number] Providers must enter state and license number to fulfill regulatory requirements The patient was advised that in the event that the connection was lost during the visit, to resume the virtual appointment by re-connecting to the previously provided video-conference link or by contacting the office by phone. Technical quality of visit: good . HPI Review of Systems Objective Objective Physical Exam: A hands-on physical exam was not performed given the limitations of a virtual telehealth visit done via telephone. documented in this encounter Plan of Treatment Not on file documented as of this encounter Visit Diagnoses Diagnosis Numbness and tingling of both upper extremities- Primary S/P cervical spinal fusion Arthrodesis status Bilateral carpal tunnel syndrome Carpal tunnel syndrome documented in this encounter Care Teams Lapping Machine Set Up Operator Relationship Specialty Start Date End Date Ankit Law MD [address] [place] [address] [place] [id number] PCP - General Family Medicine 11/16/23 documented as of this encounter
--- OUTSIDE RECORDS SUMMARY | 2024-04-05 18:39 | XMS_ITS | Encounter Summary ---
Author Organization [facility] Address [address] [place] [address] Care Team Providers Care Treating And Pumping Supervisor Name Role Phone Ankit Law MD Primary Care Provider [phone] Encounter Details Date Type Department Care Team ([facility] st Contact Info) Description 02/15/2024 Scanned Document [facility] PHYSICAL MEDICINE & REHAB [facility] [address] [place] [phone] Luz Peralta MA [address] [place] [phone] Social History Tobacco Use Types Packs/Day Years Used Date Smoking Tobacco: Never Smokeless Tobacco: Never Alcohol Use Standard Drinks/Week Comments Yes 0 (1 standard drink = 0.6 oz pur e alcohol) [facility] [place] of Occupat ional Health - Occupational Stress [...] PM EDT documented as of this encounter Plan of Treatment Not on file documented as of this encounter Visit Diagnoses Not on filedocumented in this encounter Care Teams Treating And Pumping Supervisor Relationship Specialty Start Date End Date Ankit Law MD [address] [place] [address] Dr Hickey, [place] [address] PCP - General Family Medicine 11/16/23 documented as of this encounter
--- OUTSIDE RECORDS SUMMARY | 2024-04-05 18:39 | XMS_ITS | Encounter Summary ---
Author Organization [facility] Address [address] [place] [address] Care Team Providers Care Superintendent Mechanical Name Role Phone Ankit Law MD Primary Care Provider [phone] Encounter Details Date Type Department Care Team (Latest Contact Info) Description 03/15/2024 Travel Social History Tobacco Use Types Packs/Day Years Used Date Smoking Tobacco: Never Smokeless Tobacco: Never Alcohol Use Standard Drinks/Week Comments Yes 0 (1 standard drink = 0.6 oz pur e alcohol) [facility] [place] of Occupat ional Health - Occupational Stress [...] on filedocumented in this encounter Care Teams Superintendent Mechanical Relationship Specialty Start Date End Date Ankit Law MD [address] [place] [address] [place] [address] PCP - General Family Medicine 11/16/23 documented as of this encounter
--- OUTSIDE RECORDS SUMMARY | 2024-04-05 18:39 | XMS_ITS | Encounter Summary ---
Author Organization [facility] Address [address] [place] [address] Care Team Providers Care Mica Paster Name Role Phone Ankit Law MD Primary Care Provider [phone] Encounter Details Date Type Department Care Team ([facility] st Contact Info) Description 02/15/2024 Scanned Document [facility]ICAL MEDICINE & [facility] [address] [place] [phone] Luz Peralta MA [address] [place] [phone] Social History Tobacco Use Types Packs/Day Years Used Date Smoking Tobacco: Never Smokeless Tobacco: Never Alcohol Use Standard Drinks/Week Comments Yes 0 (1 standard drink = 0.6 oz pur e alcohol) [facility] [place] of Occupat ional Health - Occupational Stress [...] on filedocumented in this encounter Care Teams Mica Paster Relationship Specialty Start Date End Date Ankit Law MD [address] [place] [address] Dr Hickey, [place] [address] PCP - General Family Medicine 11/16/23 documented as of this encounter
--- OUTSIDE RECORDS SUMMARY | 2024-04-05 18:39 | XMS_ITS | Encounter Summary ---
Author Organization [facility] Address [address] [place] [address] Care Team Providers Care Geological Specialist Name Role Phone Ankit Law MD Primary Care Provider [phone] Encounter Details Date Type Department Care Team (Late st Contact Info) Description 01/12/2024 Scanned Document [facility] PHYSICAL MEDICINE & REHAB [facility] [address] [place] [phone] Richard Zavala MA [address] [place] [id number] Social History Tobacco Use Types Packs/Day Years Used Date Smoking Tobacco: Never Smokeless Tobacco: Never Alcohol Use Standard Drinks/Week Comments Yes 0 (1 standard drink = 0.6 oz pur e alcohol) [facility] [place] of Occupat ional Health - Occupational Stress [...] to strenuous exercise (like a brisk walk)? 2 days 12/16/2023 On average, how many minutes do you exercise per day at this level? 20 min 12/16/2023 Sex and Gender Information Value Date Recorded Sex Assigned at Male 11/16/2023 2:07 PM EDT Gender Identity Male 11/16/2023 2:07 PM EDT Sexual Orientation Heterosexual (straight) 11/15 2:07 PM EDT documented as of this encounter Plan of Treatment Not on file documented as of this encounter Visit Diagnoses Not on filedocumented in this encounter Care Teams Geological Specialist Relationship Specialty Start Date End Date Ankit Law MD [address] [place] [address] [place] [address] PCP - General Family Medicine 11/16/23 documented as of this encounter
--- OUTSIDE RECORDS SUMMARY | 2024-04-05 18:39 | XMS_ITS | Encounter Summary ---
Author Organization [facility] Address [address] [place] [address] Care Team Providers Care Care Associate Name Role Phone Ankit Law MD Primary Care Provider [phone] Encounter Details Date Type Department Care Team ([facility] st Contact Info) Description 02/15/2024 Scanned Document [facility] PHYSICAL MEDICINE & REHAB [facility] [address] [place] [phone] Luz Peralta MA [address] [place] [phone] Social History Tobacco Use Types Packs/Day Years Used Date Smoking Tobacco: Never Smokeless Tobacco: Never Alcohol Use Standard Drinks/Week Comments Yes 0 (1 standard drink = 0.6 oz pur e alcohol) [facility] [place] of Occupat ional Health - Occupational Stress [...] on filedocumented in this encounter Care Teams Care Associate Relationship Specialty Start Date End Date Ankit Law MD [address] [place] [address] Dr Hickey, [place] [address] PCP - General Family Medicine 11/16/23 documented as of this encounter
== END 2024-04-05 14:45 | disposition home or self-care (01) ==
LOC: HO.US 14:44
PROVIDERS: PCP Family Medicine; Visit Provider Family Medicine
DX: R22.9 Localized swelling, mass and lump, unspecified (principal); R07.9 Chest pain, unspecified
CPT/HCPCS: 71046; 76604

== ENCOUNTER → 2024-04-05 14:47 | Outpatient (BNV) | payer OTHER, SELFPAY | PROVIDERS: PCP Family Medicine; Visit Provider Radiology Diagnostic Radiology | DX: R07.9 Chest pain, unspecified (principal) | CPT/HCPCS: 71046; 76604 ==

== ENCOUNTER 2024-04-11 08:51 | Outpatient (AMB) | payer OTHER, SELFPAY ==
[2024-04-11 08:52] VITALS: BMI 28.9
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
--- OUTSIDE RECORDS SUMMARY | 2024-04-11 09:00 | XMS_ITS | Encounter Summary ---
Author Organization [facility] Address [address] [place] [address] Care Team Providers Care Black Top Machine Operator Name Role Phone Ankit Law MD Primary Care Provider [phone] Encounter Details Date Type Department Care Team ([facility] st Contact Info) Description 02/15/2024 Scanned Document [facility] PHYSICAL MEDICINE & REHAB [facility] [address] [place] [phone] Luz Peralta MA [address] [place] [address] [phone] Social History Tobacco Use Types Packs/Day Years Used Date Smoking Tobacco: Never Smokeless Tobacco: Never Alcohol Use Standard Drinks/Week Comments Yes 0 (1 standard drink = 0.6 oz pur e alcohol) [facility] [place] of Occupat ional Health - Occupational Stress [...] on filedocumented in this encounter Care Teams Black Top Machine Operator Relationship Specialty Start Date End Date Ankit Law MD [address] [place] [address] Dr Hickey, [place] [address] PCP - General Family Medicine 11/16/23 documented as of this encounter
--- OUTSIDE RECORDS SUMMARY | 2024-04-11 09:00 | XMS_ITS | Encounter Summary ---
Author Organization [facility] Address [address] [place] [address] Care Team Providers Care Retail Associate Name Role Phone Ankit Law MD Primary Care Provider [phone] Reason for Visit * Reason Comments Follow-up Follow up post EMG Encounter Details Date Type Department Care Team (Late st Contact Info) Description 03/15/2024 1:00 PM EST Telemedicine [facility] Physical Medicine & Rehab [place] [phone] Geoff Velazco MD [address] [place] [address] Numbness and tingling of both upper extremities (Primary Dx); S/P cervical spinal fusion; Bilateral carpal tunnel syndrome Social History Tobacco Use Types Packs/Day Years Used Date Smoking Tobacco: Never Smokeless Tobacco: Never Alcohol Use Standard Drinks/Week Comments Yes 0 (1 standard drink = 0.6 oz pur e alcohol) [facility] of Occupat ional Health - Occupational Stress [...] 2) Xray of cervical spine ordered today ([place] [facility]) 3) MRI cervical spine with and without contrast ([facility]) 4) Referral Dr Worrell for NCS/EMG lateral [...] Date of Patient phone number confirmed Preferred: [phone] Patient location: Patient is located within a home setting Home address [address] [place] [address] [place] [phone] Additional persons present during telehealth visit: No other parties present At time of session, this provider is licensed to provide care in the state in which the patient is currently located. Provider License #: , [place]: [id number] Providers must enter state and license number [...] syndrome documented in this encounter Care Teams Retail Associate Relationship Specialty Start Date End Date Ankit Law MD [address] [place] [address] [place] [address] PCP - General Family Medicine 11/16/23 documented as of this encounter
--- OUTSIDE RECORDS SUMMARY | 2024-04-11 09:00 | XMS_ITS | Encounter Summary ---
Author Organization [facility] Address [address] [place] [address] Care Team Providers Care Extruding Machine Operator Name Role Phone Ankit Law MD Primary Care Provider [phone] Encounter Details Date Type Department Care Team ([facility] st Contact Info) Description 02/15/2024 Scanned Document [facility] PHYSICAL MEDICINE & REHAB [facility] [address] [place] [phone] Luz Peralta MA [address] [place] [address] [phone] Social History Tobacco Use Types Packs/Day Years Used Date Smoking Tobacco: Never Smokeless Tobacco: Never Alcohol Use Standard Drinks/Week Comments Yes 0 (1 standard drink = 0.6 oz pur e alcohol) [facility] [place] of Occupat ional Health - Occupational Stress [...] on filedocumented in this encounter Care Teams Extruding Machine Operator Relationship Specialty Start Date End Date Ankit Law MD [address] [place] [address] Dr Hickey, [place] [address] PCP - General Family Medicine 11/16/23 documented as of this encounter
--- OUTSIDE RECORDS SUMMARY | 2024-04-11 09:00 | XMS_ITS | Encounter Summary ---
Author Organization [facility] Address [address] [place] [address] Care Team Providers Care Helper Teacher Name Role Phone Ankit aLw MD Primary Care Provider [phone] Encounter Details Date Type Department Care Team (Latest Contact Info) Description 03/15/2024 Travel Social History Tobacco Use Types Packs/Day Years Used Date Smoking Tobacco: Never Smokeless Tobacco: Never Alcohol Use Standard Drinks/Week Comments Yes 0 (1 standard drink = 0.6 oz pur e alcohol) [facility] [place] of Occupat ional Health - Occupational Stress [...] on filedocumented in this encounter Care Teams Helper Teacher Relationship Specialty Start Date End Date Ankit Law MD [address] [place] [address] [place] [address] PCP - General Family Medicine 11/16/23 documented as of this encounter
--- OUTSIDE RECORDS SUMMARY | 2024-04-11 09:00 | XMS_ITS | Encounter Summary ---
Author Organization [facility] Address [address] [place] [address] Care Team Providers Care Terrazzo Helper Name Role Phone Ankit Law MD Primary Care Provider [phone] Encounter Details Date Type Department Care Team ([facility] st Contact Info) Description 02/15/2024 Scanned Document [facility] PHYSICAL MEDICINE & REHAB [facility] [address] [place] [phone] Luz Peralta MA [address] [place] [address] [phone] Social History Tobacco Use Types Packs/Day Years Used Date Smoking Tobacco: Never Smokeless Tobacco: Never Alcohol Use Standard Drinks/Week Comments Yes 0 (1 standard drink = 0.6 oz pur e alcohol) [facility] [place] of Occupat ional Health - Occupational Stress [...] on filedocumented in this encounter Care Teams Terrazzo Helper Relationship Specialty Start Date End Date Ankit Law MD [address] [place] [address] Dr Hickey, [place] [address] PCP - General Family Medicine 11/16/23 documented as of this encounter
--- OUTSIDE RECORDS SUMMARY | 2024-04-11 09:00 | XMS_ITS | Encounter Summary ---
Author Organization [facility] Address [address] [place] [address] Care Team Providers Care Death Claim Clerk Name Role Phone Ankit Law MD Primary Care Provider [phone] Encounter Details Date Type Department Care Team (Late st Contact Info) Description 01/12/2024 Scanned Document [facility] PHYSICAL MEDICINE & REHAB [facility] [address] [place] [phone] Richard Zavala MA [address] [place] [phone] Social History Tobacco Use Types Packs/Day Years Used Date Smoking Tobacco: Never Smokeless Tobacco: Never Alcohol Use Standard Drinks/Week Comments Yes 0 (1 standard drink = 0.6 oz pur e alcohol) [facility] [place] of Occupat ional Health - Occupational Stress [...] on filedocumented in this encounter Care Teams Death Claim Clerk Relationship Specialty Start Date End Date Ankit Law MD [address] [place] [address] [place] [address] PCP - General Family Medicine 11/16/23 documented as of this encounter
--- OUTSIDE RECORDS SUMMARY | 2024-04-11 09:00 | XMS_ITS | Clinical Summary ---
Author Organization [facility] Address [address] [place] [address] Care Team Providers Care Aircraft Sales Representative Name Role Phone Ankit Law MD Primary Care Provider [phone] Allergies Active Allergy Reactions Criticality Noted Date [...] (two) times a day. Active Cannabis (MARIJUANA) [facility] Medical Prescription Strength Inhale. Act suki Active Problems Problem Noted Date Diagnosed Date Bilateral carpal tunnel syndrome 03/15/2024 Neck pain 12/16/2023 Numbness and tingling of both upper extremities 12/16/2023 S/P cervical spinal fusion 12/16/2023 Encounters Date Type Department Care Team Description 03/15/2024 1:00 PM EST Telemedicine [facility] Physical Medicine & Rehab [place] [address] [phone] Geoff Velazco MD Numbness and tingling of both upper extremities (Primary Dx); S/P cervical spinal fusion; Bilateral carpal tunnel syndrome 03/15/2024 Travel 02/15/2024 8:00 AM EST Procedure visit [facility] PHYSICAL MEDICINE & REHAB [place] [address] [place] [phone] Geoff Velazco MD McInerney, Brian George, MD S/P cervical spinal fusion (Primary Dx); Numbness and tingling of both upper extremities 02/15/2024 Scanned Document [facility] [address] [place] [phone] Luz Peralta MA 02/15/2024 Scanned Document [facility] [address] [place] [phone] Luz Peralta MA 02/15/2024 Scanned Document [facility] [address] [place] [phone] Luz Peralta MA 02/15/2024 Travel 01/12/2024 Scanned Document [facility] [address] [place] [phone] Richard Zavala MA from Last 3 Months Social History Tobacco Use Types Packs/Day Years Used Date Smoking Tobacco: Never Smokeless Tobacco: Never Tobacco Cessation:Counseling Given: Not Answered Alcohol Use Standard Drinks/Week Comments Yes 0 (1 standard drink = 0.6 oz pur e alcohol) [facility] [place] of Occupat ional Health - Occupational Stress [...] age to complete this topic Care Teams Aircraft Sales Representative Relationship Specialty Start Date End Date Ankit Law MD [address] [place] [address] Dr Hickey, [place] [address] PCP - General Family Medicine 11/16/23
== END 2024-04-11 09:16 | disposition home or self-care (01) ==
PROVIDERS: PCP Family Medicine
DX: G56.03 Carpal tunnel syndrome, bilateral upper limbs (principal)
CPT/HCPCS: 99214

== ENCOUNTER 2024-04-23 16:21 | Outpatient (AMB) | payer OTHER, SELFPAY ==
--- NOTE | 2024-04-23 16:35 | A.OFFPC_ITS ---
Vital Signs 04/23/24 16:42 Height 5 ft 9 in Weight 191 lb 8 oz BMI 28.3 BP 118/65 Blood Pressure Location Lt brachial Position Sitting Respiration 14 Pulse 67 Pulse Source Pulse Oximeter Temp 98.6 F Temp Source Oral Pulse Oximetry (%) 94 Oxygen Delivery Method Room Air Intake Visit Reasons: f/u chest pain Intake Note: radiology review for u/s and chest x-ray Allergies coconut Allergy (Severe, Verified 04/23/24 16:41) SWELLING tree nut [Tree Nut] Allergy (Severe, Verified 04/23/24 16:41) SWELLING FRUIT NUTS Allergy (Uncoded 12/06/23 16:54) Swelling Tobacco use date assessed: 02/25/23 Dental Screening Dental Screen Date: 02/25/23 HPI f/u chest pain HPI Details 64 y/o male presents to f/u chest pain. EKG had been fine. Chest x-ray 04/05/24 had been fine. Chest ultrasound 04/05/24 showed no sonographic abnormality seen to correspond to the palpable findings in the left anterior chest wall. Had noted he is able to shovel an entire driveway without chest discomfort. HPI Comments History of Present Illness Details Documentation assistance for Ankit Law MD, was provided by Renan Templeton,? Scrap Collector on 04/23/2024 at 5:01 PM FIONA. I, Dr. Law, have read, observed, and verified documentation. ?? PFSH Medical History COVID-19 Diabetes Celiac disease Surgical History Hx of hand surgery H/O rotator cuff surgery H/O cervical discectomy History of total right knee replacement Family History Other Alcohol abuse Drug abuse Social History Housing: House Patient Tobacco Use Status: Former Tobacco user e-Cigarette/Vaping Use: Never Used service: Yes Current occupational status: unemployed Cognitive needs: No Hearing needs: No Vision needs: No Questionnaire Thrive Questionnaire Date Thrive assessed: 03/09/24 I am a: Patient What is your living situation today?: I have a steady place to live Within the past 12 months, did the food you bought not last and you didn't have the money to get more?: Never true Within the past 12 months, did you worry whether your food would run out before you got money to buy more?: Never true Do you have trouble paying for medicines?: No Do you have trouble getting transportation to medical appointments?: No Do you have trouble paying your heating and electricity bill?: No Do you have trouble taking care of your child, family member or friend?: No Do you have trouble with day-to-day activities such as bathing, preparing meals, shopping, managing finances, etc.?: No Are you currently unemployed and looking for a job?: No Are you interested in more education?: No Please select the resources that you would like help with: None Currently or been in a relationship where the following occur: No concerns reported THRIVE Score: 0 LAYO-7 AMB Questionnaire LAYO-7 Date LAYO - 7 assessed: 02/25/23 Source: Developed by Drs. Jose Faulkner, Marjorie Gonzalez, Luis Felipe Palacios and colleagues, with an educational juanpablo from [employer]. Review of Systems Const Denies chills, Denies fatigue, Denies fever(s), Denies headache(s) and Denies weakness ENT Denies dizziness and Denies headache(s) Card Denies chest pain, Denies lightheadedness, Denies dyspnea and Denies other (Palpitations) Resp Denies cough, Denies dyspnea, Denies wheezing and Denies other ( shortness of breath) Musc Denies numbness and Denies tingling Neuro Denies dizziness, Denies headache(s), Denies numbness, Denies tingling, Denies paresthesias and Denies weakness Psych Denies anxiety and Denies depression Endo Denies fatigue Aller/Immun Denies wheezing Physical exam (Primary Care) Vital Signs: Last Vital Signs Temp 98.6 F 04/23/24 16:42 Pulse 67 04/23/24 16:42 Resp 14 04/23/24 16:42 BP 118/65 04/23/24 16:42 Pulse Ox 94 04/23/24 16:42 Oxygen Delivery Method Room Air 04/23/24 16:42 BMI result Body Mass Index 28.3 Tobacco/Smoking Status: Tobacco use Status Tobacco use date assessed 02/25/23 04/23/24 16:36 Patient Tobacco Use Status Former Tobacco user 04/23/24 16:36 e-Cigarette/Vaping Use Never Used 04/23/24 16:36 Thrive Assessment: Date of Thrive Assessment Date Thrive assessed 03/09/24 04/23/24 16:36 Currently or been in a relationship where the following occur: No concerns reported Const General: no acute distress and well developed Nutritional Appearance: well nourished Orientation/consciousness: patient oriented [facility]3 [facility]: Yes normocephalic and Yes atraumatic Eyes General: appearance normal, both eyes and all related structures Pupils: Equal, round and reactive pupils present EOM: EOMs intact bilaterally Resp Effort & Inspection: normal respiratory effort Auscultation: clear to auscultation bilaterally Cardio Rate: regular rate Rhythm: regular rhythm Heart sounds: S1 normal heart sound present, S2 normal heart sound present, no gallops, no murmurs and no rubs Neuro General: patient oriented x3 and gait normal Cranial nerves: Yes Equal, round and reactive pupils present Psych Affect: normal affect Coding Level of Care Code Est Pt Level 3 (41798) Diagnoses Left-sided chest pain R07.9 Assessment & Plan Assessment & Plan (1) Left-sided chest pain: Code(s): R07.9 - Chest pain, unspecified Category: Medical Plan: Focal,?atypical?chest?pain EKG?was?within?normal?limits.??Chest?x- ray?and?chest?wall?ultrasound?were?negative Patient?does?note?that?he?has?had?a?history?of?blood?clot Will?check?D-dimer?though?doubt?this?will?be?positive.?? We?did?discuss?that?if?this?is?positive, it?Will?obligate?further?investigation.??Patient?understands. Orders: Orders 2 D Dimer High Sensitivity Today R07.9 - Chest pain, unspecified Troponin-I High Sensitivity Today R07.9 - Chest pain, unspecified Comprehensive Met. Panel Today R07.9 - Chest pain, unspecified
[2024-04-23 16:42] VITALS: BP 118/65; PULSE 67; RESP 14; TEMP 37; O2SAT 94; BMI 28.3
== END 2024-04-23 17:12 | disposition home or self-care (01) ==
PROVIDERS: PCP Family Medicine; Visit Provider Family Medicine
DX: R07.9 Chest pain, unspecified (principal)

== ENCOUNTER → 2024-04-23 16:21 | Outpatient (BNVA) | payer OTHER, SELFPAY | PROVIDERS: PCP Family Medicine; Visit Provider Family Medicine ==

== ENCOUNTER 2024-04-27 15:22 | Outpatient (REF) | payer OTHER, SELFPAY ==
--- OUTSIDE RECORDS SUMMARY | 2024-04-27 15:23 | XMS_ITS | Encounter Summary ---
Author Organization [facility] Address [address] [place] [address] Care Team Providers Care Rubber Insulator Name Role Phone Ankit Law MD Primary Care Provider [phone] [phone] Encounter Details Date Type Department Care Team ([facility] st Contact Info) Description 02/15/2024 Scanned Document [facility] PHYSICAL MEDICINE & REHAB [facility] [address] [place] [phone] Luz Peralta MA [address] [place] [address] [phone] Social History Tobacco Use Types Packs/Day Years Used Date Smoking Tobacco: Never Smokeless Tobacco: Never Alcohol Use Standard Drinks/Week Comments Yes 0 (1 standard drink = 0.6 oz pur e alcohol) [facility] [place] of Occupat ional Health - Occupational Stress [...] on filedocumented in this encounter Care Teams Rubber Insulator Relationship Specialty Start Date End Date Ankit Law MD [address] [place] [address] Dr Hickey, [place] [address] PCP - General Family Medicine 11/16/23 documented as of this encounter
--- OUTSIDE RECORDS SUMMARY | 2024-04-27 15:24 | XMS_ITS | Encounter Summary ---
Author Organization [facility] Address [address] [place] [address] Care Team Providers Care Director Of Search Engine Optimization Name Role Phone Ankit Law MD Primary Care Provider [phone] Encounter Details Date Type Department Care Team ([facility] st Contact Info) Description 02/15/2024 Scanned Document [facility] PHYSICAL MEDICINE & REHAB [facility] [address] [place] [phone] Luz Peralta MA [address] [place] [phone] Social History Tobacco Use Types Packs/Day Years Used Date Smoking Tobacco: Never Smokeless Tobacco: Never Alcohol Use Standard Drinks/Week Comments Yes 0 (1 standard drink = 0.6 oz pur e alcohol) [facility] [place] of Occupat ional Health - Occupational Stress [...] on filedocumented in this encounter Care Teams Director Of Search Engine Optimization Relationship Specialty Start Date End Date Ankit Law MD [address] [place] [address] Dr Hickey, [place] [address] PCP - General Family Medicine 11/16/23 documented as of this encounter
--- OUTSIDE RECORDS SUMMARY | 2024-04-27 15:24 | XMS_ITS | Encounter Summary ---
Author Organization [facility] Address [address] [place] [address] Care Team Providers Care Cloth Measurer Machine Name Role Phone Ankit Law MD Primary Care Provider +1 [phone] Encounter Details Date Type Department Care Team (Late st Contact Info) Description 01/12/2024 Scanned Document [facility] PHYSICAL MEDICINE & REHAB [facility] [address] [place] [phone] Richard Zavala MA [address] [place] [phone] Social History Tobacco Use Types Packs/Day Years Used Date Smoking Tobacco: Never Smokeless Tobacco: Never Alcohol Use Standard Drinks/Week Comments Yes 0 (1 standard drink = 0.6 oz pur e alcohol) [facility] [place] of Occupat ional Health - Occupational Stress [...] on filedocumented in this encounter Care Teams Cloth Measurer Machine Relationship Specialty Start Date End Date Ankit Law MD [address] [place] [address] [place] [address] PCP - General Family Medicine 11/16/23 documented as of this encounter
--- OUTSIDE RECORDS SUMMARY | 2024-04-27 15:24 | XMS_ITS | Clinical Summary ---
Author Organization [facility] Address [address] [place] [address] Care Team Providers Care Drapery Installer Name Role Phone Ankit Law MD Primary Care Provider +1- [phone] Allergies Active Allergy Reactions Criticality Noted Date [...] (two) times a day. Active Cannabis (MARIJUANA) [facility] Prescription Strength Inhale. Act suki Active Problems Problem Noted Date Diagnosed Date Bilateral carpal tunnel syndrome 03/15/2024 Neck pain 12/16/2023 Numbness and tingling of both upper extremities 12/16/2023 S/P cervical spinal fusion 12/16/2023 Encounters Date Type Department Care Team Description 03/15/2024 1:00 PM EST Telemedicine [facility] [place] [facility] Physical Medicine & Re[facility] [place] [address] [phone] Geoff Velazco MD Numbness and tingling of both upper extremities (Primary Dx); S/P cervical spinal fusion; Bilateral carpal tunnel syndrome 03/15/2024 Travel 02/15/2024 8:00 AM EST Procedure visit [facility] PHYSICAL MEDICINE & REHAB [facility] [address] [place] [phone] Geoff Velazco MD McInerney, Brian George, MD S/P cervical spinal fusion (Primary Dx); Numbness and tingling of both upper extremities 02/15/2024 Scanned Document [facility] [address] [place] [phone] Luz Peralta MA 02/15/2024 Scanned Document [facility] MED[facility] & [facility] [address] [place] [phone] Luz Peralta MA 02/15/2024 Scanned Document [facility] [address] [place] [phone] Luz Peralta MA 02/15/2024 Travel from Last 3 Months Social History Tobacco Use Types Packs/Day Years Used Date Smoking Tobacco: Never Smokeless Tobacco: Never Tobacco Cessation:Counseling Given: Not Answered Alcohol Use Standard Drinks/Week Comments Yes 0 (1 standard drink = 0.6 oz pur e alcohol) [facility] [place] of Occupat ional Health - Occupational Stress [...] age to complete this topic Care Teams Drapery Installer Relationship Specialty Start Date End Date Ankit Law MD [address] [place] [address] [place] [address] PCP - General Family Medicine 11/16/23
[2024-04-27 17:56] LABS: Alanine Aminotransferase 28 U/L (0-40); Albumin Level 4.4 g/dL (3.5-5.0); Alkaline Phosphatase 75 U/L (39-117); Anion Gap 11 (12-20); Aspartate Amino Transferase 30 U/L (5-37); Bilirubin Total 0.3 mg/dL (0.0-1.0); Blood Urea Nitrogen 28 mg/dL (9-16); Calcium 9.7 mg/dL (8.4-10.2); Carbon Dioxide 23 mmol/L (22-29); Chloride 107 mmol/L (96-108); Estimated Glomerular Filt Rate > 60; Glucose Random 108 mg/dL (60-115); Potassium 4.3 mmol/L (3.3-5.1); Sodium 137 mmol/L (135-145); Total Protein 7.5 g/dL (6.5-8.0)
[2024-04-27 18:03] LABS: Troponin-I High Sensitivity < 2.7 ng/L (<3.5-35.0)
[2024-04-27 18:13] LABS: D Dimer High Sensitivity 357 NG/ML
== END 2024-04-27 15:23 | disposition home or self-care (01) ==
LOC: HO.WFDLDS 15:22
PROVIDERS: Visit Provider Family Medicine
DX: R07.9 Chest pain, unspecified (principal)
CPT/HCPCS: 36415; 80053; 84484; 85379

== ENCOUNTER 2024-04-30 09:58 | Outpatient (AMB) | payer OTHER, SELFPAY ==
--- NOTE | 2024-04-30 09:56 | A.OFFPC_ITS ---
Intake Visit Reasons: f/u labs Intake Note: f/u labs Director Pediatric Required: No Allergies coconut Allergy (Severe, Verified 04/30/24 09:57) SWELLING tree nut [Tree Nut] Allergy (Severe, Verified 04/30/24 09:57) SWELLING FRUIT NUTS Allergy (Uncoded 12/06/23 16:54) Swelling Tobacco use date assessed: 02/25/23 Dental Screening Dental Screen Date: 02/25/23 HPI f/u labs HPI Details 64 y/o male presents to f/u labs via tel emedicine. Had been having complaints of chest pain. Troponin levels were fine. D-dimer 357. He denies any recent leg pain. PFSH Medical History COVID-19 Diabetes Celiac disease Surgical History Hx of hand surgery H/O rotator cuff surgery H/O cervical discectomy History of total right knee replacement Family History Other Alcohol abuse Drug abuse Social History Housing: House Patient Tobacco Use Status: Former Tobacco user e-Cigarette/Vaping Use: Never Used service: Yes Current occupational status: unemployed Cognitive needs: No Hearing needs: No Vision needs: No Questionnaire Thrive Questionnaire Date Thrive assessed: 03/09/24 LAYO-7 AMB Questionnaire LAYO-7 Date LAYO - 7 assessed: 02/25/23 Source: Developed by Drs. Jose Faulkner, Marjorie Gonzalez, Luis Felipe Palacios and colleagues, with an educational juanpablo from [employer]. Review of Systems Const Denies chills, Denies fatigue, Denies fever(s), Denies headache(s) and Denies weakness ENT Denies dizziness and Denies headache(s) Card Denies dyspnea Resp Denies cough, Denies dyspnea, Denies wheezing and Denies other (shortness of breath) Musc Denies numbness and Denies tingling Neuro Denies dizziness, Denies headache(s), Denies numbness, Denies tingling and Denies weakness Psych Denies anxiety and Denies depression Endo Denies fatigue Aller/Immun Denies wheezing Physical exam (Primary Care) Tobacco/Smoking Status: Tobacco use Status Tobacco use date assessed 02/25/23 04/30/24 09:58 Patient Tobacco Use Status Former Tobacco user 04/30/24 09:58 e-Cigarette/Vaping Use Never Used 04/30/24 09:58 Thrive Assessment: Date of Thrive Assessment Date Thrive assessed 03/09/24 04/30/24 09:58 Telehealth Telehealth Telehealth Platform: Telephone Location of provider rendering services: practice address Location of patient: address on file Patient Identification confirmed using: Name, : Yes Telehealth method: voice only Patient verbally consented to treatment: Yes Patient verbally consented to billing insurance company: Yes Patient informed of any privacy concerns related to visit: Yes Minutes spent on Phone/Video with Pt.: 5 Coding Level of Care Code Tele Est Pt Level 2 (92211) Diagnoses Left-sided chest pain R07.9 Assessment & Plan Assessment & Plan (1) Left-sided chest pain: Code(s): R07.9 - Chest pain, unspecified Category: Medical Plan: Ongoing?left-sided?chest?discomfort Troponin level?is?normal?as?well?as?EKG?and?chest?x-ray. Patient?has?history?of?DVT, also?acknowledges?leg?pain?in did?not?rule?out?by?D- dimer?test. Will?get?CT?angio?of?chest. Orders: Orders CT angio chest PE protocol Today R05.9 - Cough, unspecified, R07.89 - Other chest pain, R07.9 - Chest pain, unspecified, Z86.718 - Personal history of other venous thrombosis and embolism
--- OUTSIDE RECORDS SUMMARY | 2024-04-30 11:01 | XMS_ITS | Encounter Summary ---
Author Organization [facility] Address [address] [place] [address] Care Team Providers Care Crusher Foreman Name Role Phone Ankit Law MD Primary Care Provider +1 [phone] Encounter Details Date Type Department Care Team ([facility] st Contact Info) Description 02/15/2024 Scanned Document [facility] PHYSICAL MEDICINE & REHAB [facility] [address] [place] [phone] Luz Peralta MA [address] [place] [phone] Social History Tobacco Use Types Packs/Day Years Used Date Smoking Tobacco: Never Smokeless Tobacco: Never Alcohol Use Standard Drinks/Week Comments Yes 0 (1 standard drink = 0.6 oz pur e alcohol) [facility] [place] of Occupat ional Health - Occupational Stress [...] on filedocumented in this encounter Care Teams Crusher Foreman Relationship Specialty Start Date End Date Ankit Law MD [address] [place] [address] Dr Hickey, [place]ON [address] PCP - General Family Medicine 11/16/23 documented as of this encounter
--- OUTSIDE RECORDS SUMMARY | 2024-04-30 11:01 | XMS_ITS | Encounter Summary ---
Author Organization [facility] Address [address] [place] [address] Care Team Providers Care Mountain Bike Guide Name Role Phone Ankit Law MD Primary Care Provider +1 [phone] Encounter Details Date Type Department Care Team ([facility] st Contact Info) Description 02/15/2024 Scanned Document [facility] PHYSICAL MEDICINE & REHAB [facility] [address] [place] [phone] Luz Peralta MA [address] [place] [phone] Social History Tobacco Use Types Packs/Day Years Used Date Smoking Tobacco: Never Smokeless Tobacco: Never Alcohol Use Standard Drinks/Week Comments Yes 0 (1 standard drink = 0.6 oz pur e alcohol) [facility] [place] of Occupat ional Health - Occupational Stress [...] on filedocumented in this encounter Care Teams Mountain Bike Guide Relationship Specialty Start Date End Date Ankit Law MD [address] [place] [address] Dr Hickey, [place] [address] PCP - General Family Medicine 11/16/23 documented as of this encounter
--- OUTSIDE RECORDS SUMMARY | 2024-04-30 11:02 | XMS_ITS | Encounter Summary ---
Author Organization [facility] Address [address] [place] [address] Care Team Providers Care Dowel Pointer Name Role Phone Ankit Law MD Primary Care Provider +1 [phone] Encounter Details Date Type Department Care Team ([facility] st Contact Info) Description 02/15/2024 Scanned Document [facility] PHYSICAL MEDICINE & REHAB [facility] [address] [place] [phone] Luz Peralta MA [address] [place] [phone] Social History Tobacco Use Types Packs/Day Years Used Date Smoking Tobacco: Never Smokeless Tobacco: Never Alcohol Use Standard Drinks/Week Comments Yes 0 (1 standard drink = 0.6 oz pur e alcohol) [facility] [place] of Occupat ional Health - Occupational Stress [...] on filedocumented in this encounter Care Teams Dowel Pointer Relationship Specialty Start Date End Date Ankit Law MD [address] [place] [address] Dr Hickey, [place] [address] PCP - General Family Medicine 11/16/23 documented as of this encounter
--- OUTSIDE RECORDS SUMMARY | 2024-04-30 11:02 | XMS_ITS | Encounter Summary ---
Author Organization [facility] Address [address] [place] [address] Care Team Providers Care Bench Molder Apprentice Name Role Phone Ankit Law MD Primary Care Provider [phone] [phone] Encounter Details Date Type Department Care Team (Late st Contact Info) Description 01/12/2024 Scanned Document [facility] PHYSICAL MEDICINE & REHAB [facility] [address] [place] [phone] Richard Zavala MA [address] [place] [phone] Social History Tobacco Use Types Packs/Day Years Used Date Smoking Tobacco: Never Smokeless Tobacco: Never Alcohol Use Standard Drinks/Week Comments Yes 0 (1 standard drink = 0.6 oz pur e alcohol) [facility] [place] of Occupat ional Health - Occupational Stress [...] on filedocumented in this encounter Care Teams Bench Molder Apprentice Relationship Specialty Start Date End Date Ankit Law MD [address] [place] [address] [place] [address] PCP - General Family Medicine 11/16/23 documented as of this encounter
--- OUTSIDE RECORDS SUMMARY | 2024-04-30 11:02 | XMS_ITS | Clinical Summary ---
Author Organization [facility] Address [address] [place] [address] Care Team Providers Care Kaiawhina Name Role Phone Ankit aLw MD Primary Care Provider +1- [phone] Allergies Active Allergy Reactions Criticality Noted Date [...] times a day. Active Cannabis (MARIJUANA) [facility] Prescription Strength Inhale. Act suki Active Problems Problem Noted Date Diagnosed Date Bilateral carpal tunnel syndrome 03/15/2024 Neck pain 12/16/2023 Numbness and tingling of both upper extremities 12/16/2023 S/P cervical spinal fusion 12/16/2023 Encounters Date Type Department Care Team Description 03/15/2024 1:00 PM EST Telemedicine [facility] Physical Medicine & Rehab [place] [address] [phone] Geoff Velazco MD Numbness and tingling of both upper extremities (Primary Dx); S/P cervical spinal fusion; Bilateral carpal tunnel syndrome 03/15/2024 Travel 02/15/2024 8:00 AM EST Procedure visit [facility] PHYSICAL MEDICINE & REHAB [facility] [address] [place] [phone] Geoff Velazco MD McInerney, Brian George, MD S/P cervical spinal fusion (Primary Dx); Numbness and tingling of both upper extremities 02/15/2024 Scanned Document [facility] [address] [place] [phone] Luz Peralta MA 02/15/2024 Scanned Document [facility] [address] [place] [phone] Luz Peralta MA 02/15/2024 Scanned Document [facility] [address] [place] [phone] Luz Peralta MA 02/15/2024 Travel from Last 3 Months Social History Tobacco Use Types Packs/Day Years Used Date Smoking Tobacco: Never Smokeless Tobacco: Never Tobacco Cessation:Counseling Given: Not Answered Alcohol Use Standard Drinks/Week Comments Yes 0 (1 standard drink = 0.6 oz pur e alcohol) [facility] [place] of Occupat ional Health - Occupational Stress [...] age to complete this topic Care Teams Kaiawhina Relationship Specialty Start Date End Date Ankit Law MD [address] [place] [address] [place] [address] PCP - General Family Medicine 11/16/23
== END 2024-05-01 17:05 | disposition home or self-care (01) ==
LOC: HO.HMCFM 09:58
PROVIDERS: PCP Family Medicine; Visit Provider Family Medicine
DX: R07.9 Chest pain, unspecified (principal)

== ENCOUNTER 2024-05-24 13:23 | Outpatient (REF) | payer OTHER, SELFPAY ==
--- NOTE | ~2024-05-24 | CT_ITS ---
EXAMINATION: CT ANGIOGRAM CHEST CLINICAL INFORMATION: Cough. Elevated d-dimer. COMPARISON: None available. TECHNIQUE: Multiple axial images were obtained through the chest after the administration of 65 mL of Omnipaque 350 intravenous contrast. Extensive vascular post-processing including two-dimensional and three-dimensional reformatted images were created and reviewed on an independent workstation. SmartPrep technique. This CT examination was performed using dose optimization techniques as appropriate, variously including the following: *Automated exposure control *Adjustment of mA and/or kV according to patient size (this includes techniques or standardized protocols for targeted exams where dose is matched to indication/reason for exam; i.e. extremities or head) *Use of iterative reconstruction technique. DLP: 143 mGy centimeter. FINDINGS: Main pulmonary artery and its main branches are patent without intraluminal filling defects within the main pulmonary artery or its main branches. No aneurysm, thoracic aorta. Calcified plaques in the coronary arteries. No pericardial effusion. Pulmonary patchy groundglass in the lung bases. No pleural effusion. No pneumothorax. No bronchiectasis. No honeycombing. Respiratory airways patent. No lymphadenopathy, mediastinum or perihilar. No axillary lymphadenopathy. No dominant nodules in the included thyroid gland. Mild to moderate multilevel thoracic spondylosis. No acute fracture or listhesis. No acute rib fractures. CT/CT angio chest PE protocol IMPRESSION: No acute pulmonary artery emboli. Questionable acute airspace disease, right lower lung lobe. Fleischner guidelines were followed. Electronically signed by: Blake Townsend MD 05/25/2024 07:58 AM EDT
--- OUTSIDE RECORDS SUMMARY | 2024-05-24 15:52 | XMS_ITS | Encounter Summary ---
Author Organization [facility] Address [address] [place] [address] Care Team Providers Care Gang Sawyer Name Role Phone Ankit Law MD Primary Care Provider +1 [phone] Encounter Details Date Type Department Care Team ([facility] st Contact Info) Description 02/15/2024 Scanned Document [facility] PHYSICAL MEDICINE & REHAB [facility] [address] [place] [phone] Luz Peralta MA [address] [place] [phone] Social History Tobacco Use Types Packs/Day Years Used Date Smoking Tobacco: Never Smokeless Tobacco: Never Alcohol Use Standard Drinks/Week Comments Yes 0 (1 standard drink = 0.6 oz pur e alcohol) [facility] [place] of Occupat ional Health - Occupational Stress [...] on filedocumented in this encounter Care Teams Gang Sawyer Relationship Specialty Start Date End Date Ankit Law MD [address] [place] [address] Dr Hickey, [place] [address] PCP - General Family Medicine 11/16/23 documented as of this encounter
--- OUTSIDE RECORDS SUMMARY | 2024-05-24 15:52 | XMS_ITS | Encounter Summary ---
Author Organization [facility] Address [address] [place] [address] Care Team Providers Care Wooden Boat Builder Name Role Phone Ankit Law MD Primary Care Provider +1 [phone] Encounter Details Date Type Department Care Team ([facility] st Contact Info) Description 02/15/2024 Scanned Document [facility] PHYSICAL MEDICINE & REHAB [facility] [address] [place] [phone] Luz Peralta MA [address] [place] [phone] Social History Tobacco Use Types Packs/Day Years Used Date Smoking Tobacco: Never Smokeless Tobacco: Never Alcohol Use Standard Drinks/Week Comments Yes 0 (1 standard drink = 0.6 oz pur e alcohol) [facility] [place] of Occupat ional Health - Occupational Stress [...] on filedocumented in this encounter Care Teams Wooden Boat Builder Relationship Specialty Start Date End Date Ankit Law MD [address] [place] [address] Dr Hickey, [place] [address] PCP - General Family Medicine 11/16/23 documented as of this encounter
[2024-05-24] MEDS: iohexoL 350 MG/ML 75 ML INFUS..BTL 65 ML IV (16:29)
== END 2024-05-24 13:24 | disposition home or self-care (01) ==
LOC: HO.CT 13:23
PROVIDERS: PCP Family Medicine; Visit Provider Family Medicine
DX: R07.89 Other chest pain (principal); R05.9 Cough, unspecified; Z86.718 Personal history of other venous thrombosis and embolism
CPT/HCPCS: 71275; Q9967

== ENCOUNTER → 2024-05-24 13:25 | Outpatient (BNV) | payer OTHER, SELFPAY | PROVIDERS: PCP Family Medicine; Visit Provider Radiology Diagnostic Radiology | DX: R05.9 Cough, unspecified (principal) | CPT/HCPCS: 71275 ==

== ENCOUNTER 2024-07-13 14:46 | Outpatient (REF) | payer OTHER, SELFPAY ==
--- OUTSIDE RECORDS SUMMARY | 2024-07-13 15:35 | XMS_ITS | Clinical Summary ---
Author Organization [facility] Address [address] [place] [address] Care Team Providers Care Bar Welder Name Role Phone Ankit Law MD Primary Care Provider [phone] Allergies Active Allergy Reactions Criticality Noted Date [...] (two) times a day. Active Cannabis (MARIJUANA) [facility] Medical Prescription Strength Inhale. Active Active Problems [...] drink = 0.6 oz pur e alcohol) [facility] - Occupational Stress Questionnaire Answer Date Recorded [...] topic Insurance [employer] Care Teams Bar Welder Relationship Specialty Start Date End Date Ankit Law MD [address] [place] [address] [place] [id number] PCP - General Family Medicine 11/16/23
--- OUTSIDE RECORDS SUMMARY | 2024-07-13 15:35 | XMS_ITS | Encounter Summary ---
Author Organization [facility] Address [address] [place] [address] Care Team Providers Care Procurement Technician Name Role Phone Ankit Law MD Primary Care Provider [phone] Encounter Details Date Type Department Care Team ([facility] st Contact Info) Description 02/15/2024 Scanned Document [facility] PHYSICAL MEDICINE & REHAB [facility] [address] [place] [phone] Luz Peralta MA [address] [place] [address] [phone] Social History Tobacco Use Types Packs/Day Years Used Date Smoking Tobacco: Never Smokeless Tobacco: Never Alcohol Use Standard Drinks/Week Comments Yes 0 (1 standard drink = 0.6 oz pur e alcohol) [facility] [place] [facility] - Occupational Stress [...] on filedocumented in this encounter Care Teams Procurement Technician Relationship Specialty Start Date End Date Ankit Law MD [address] [place] [address] [address] [place] [id number] PCP - General Family Medicine 11/16/23 documented as of this encounter
--- OUTSIDE RECORDS SUMMARY | 2024-07-13 15:35 | XMS_ITS | Encounter Summary ---
Author Organization [facility] Address [address] [place] [address] Care Team Providers Care Readers' Advisory Service Librarian Name Role Phone Ankit Law MD Primary Care Provider [phone] Encounter Details Date Type Department Care Team ([facility] st Contact Info) Description 02/15/2024 Scanned Document [facility] PHYSICAL MEDICINE & REHAB [facility] [address] [place] [phone] Luz Peralta MA [address] [place] [address] [phone] Social History Tobacco Use Types Packs/Day Years Used Date Smoking Tobacco: Never Smokeless Tobacco: Never Alcohol Use Standard Drinks/Week Comments Yes 0 (1 standard drink = 0.6 oz pur e alcohol) [facility] Occupat ional Health - Occupational Stress [...] on filedocumented in this encounter Care Teams Readers' Advisory Service Librarian Relationship Specialty Start Date End Date Ankit Law MD [address] [place] [address] [address] [place] [id number] PCP - General Family Medicine 11/16/23 documented as of this encounter
--- OUTSIDE RECORDS SUMMARY | 2024-07-13 15:35 | XMS_ITS | Encounter Summary ---
Author Organization [facility] Address [address] [place] [address] Care Team Providers Care Data Integration Analyst Name Role Phone Ankit Law MD Primary Care Provider [phone] Encounter Details Date Type Department Care Team ([facility] st Contact Info) Description 02/15/2024 Scanned Document [facility] PHYSICAL MEDICINE & REHAB [facility] [address] [place] [phone] Luz Peralta MA [address] [place] [address] [phone] Social History Tobacco Use Types Packs/Day Years Used Date Smoking Tobacco: Never Smokeless Tobacco: Never Alcohol Use Standard Drinks/Week Comments Yes 0 (1 standard drink = 0.6 oz pur e alcohol) [facility] Occupat ional Health - Occupational Stress [...] in this encounter Care Teams Data Integration Analyst Relationship Specialty Start Date End Date Ankit Law MD [address] [place] [address] [address] [place] [id number] PCP - General Family Medicine 11/16/23 documented as of this encounter
--- OUTSIDE RECORDS SUMMARY | 2024-07-13 15:35 | XMS_ITS | Encounter Summary ---
Author Organization [facility] Address [address] [place] [address] Care Team Providers Care Dye Tank Tender Name Role Phone Ankit Law MD Primary Care Provider [phone] Encounter Details Date Type Department Care Team (Late st Contact Info) Description 01/12/2024 Scanned Document [facility] PHYSICAL MEDICINE & REHAB [facility] [address] [place] [phone] Richard Zavala MA [address] [place] [id number] Social History Tobacco Use Types Packs/Day Years Used Date Smoking Tobacco: Never Smokeless Tobacco: Never Alcohol Use Standard Drinks/Week Comments Yes 0 (1 standard drink = 0.6 oz pur e alcohol) [facility] of Occupat ional Health - Occupational Stress [...] on filedocumented in this encounter Care Teams Dye Tank Tender Relationship Specialty Start Date End Date Ankit Law MD [address] [place] [address] [address] [place], [place] [address] PCP - General Family Medicine 11/16/23 documented as of this encounter
[2024-07-13 18:11] LABS: Folate 6.9 ng/mL (> or = 4.0); Vitamin B12 263 pg/mL (200-900)
[2024-07-18 14:09] LABS: Vitamin D 25-OH, D2 <4 ng/mL; Vitamin D 25-OH, D3 33 ng/mL; Vitamin D 25-OH, Total 33 ng/mL (30-100)
[2024-07-18 21:29] LABS: Transglutaminase IgA >250.0 U/mL
== END 2024-07-13 14:47 | disposition home or self-care (01) ==
LOC: HO.LAB 14:46
PROVIDERS: PCP Family Medicine; Visit Provider Nurse Practitioner Family
DX: R19.7 Diarrhea, unspecified (principal); E55.9 Vitamin D deficiency, unspecified; R10.9 Unspecified abdominal pain
CPT/HCPCS: 36415; 82306; 82607; 82746; 86364

== ENCOUNTER 2024-07-13 14:46 | Outpatient (AMB) | payer OTHER, SELFPAY ==
--- OUTSIDE RECORDS SUMMARY | 2024-07-13 14:48 | XMS_ITS | Encounter Summary ---
Author Organization [facility] Address [address] [place] [address] Care Team Providers Care Can Maker Name Role Phone Ankit Law MD Primary Care Provider [phone] Encounter Details Date Type Department Care Team ([facility] st Contact Info) Description 02/15/2024 Scanned Document [facility] [address] [place] [phone] Luz Peralta MA [address] [place] [phone] Social History Tobacco Use Types Packs/Day Years Used Date Smoking Tobacco: Never Smokeless Tobacco: Never Alcohol Use Standard Drinks/Week Comments Yes 0 (1 standard drink = 0.6 oz pur e alcohol) [facility] [place] of Occupat ional Health - Occupational Stress [...] Assigned at Male 11/16/2023 2:07 PM EDT Legal Sex Male 9:37 AM EDT Gender Identity Male 11/16/2023 2:07 PM EDT Sexual Orientation Heterosexual (straight) 11/15 2:07 PM EDT documented as of this encounter Plan of Treatment Not on file documented as of this encounter Visit Diagnoses Not on filedocumented in this encounter Care Teams Can Maker Relationship Specialty Start Date End Date Ankit Law MD [address] [place] [address] Dr Dior [address] [place] [address] PCP - General Family Medicine 11/16/23 documented as of this encounter
--- OUTSIDE RECORDS SUMMARY | 2024-07-13 14:48 | XMS_ITS | Clinical Summary ---
Author Organization [facility] Address [address] [place] [address] Care Team Providers Care Fire Hose Curer Name Role Phone Ankit Law MD Primary Care Provider [phone] Allergies Active Allergy Reactions Criticality Noted Date Comments Coconut Itching Low 12/16/2023 Hydromorphone Other (See Comments) 12/16/2023 Seizure like activity, sweats Meloxicam Other (See Comments) High 04/04/2014 States question passed out or seizure unsure Nuts Anaphylaxis High 12/16/2023 Peaches Anaphylaxis High 12/16/2023 Plums Anaphylaxis High 12/16/2023 Watermelon Anaphylaxis High 12/16/2023 Medications Cetirizine HCl (ZyrTEC) 10 MG Cap Take 1 tablet by mouth. Active PANTOprazole (PROTONIX) 40 MG EC tablet Take 1 tablet (40 mg total) by mouth every morning. Active zinc gluconate 50 MG tablet Take 1 tablet (50 mg total) by mouth daily. Active saccharomyces boulardii (FLORASTOR) 250 MG capsule Take 1 capsule (250 mg total) by mouth 2 (two) times a day. Active Cannabis (MARIJUANA) [facility] Medical Prescription Strength Inhale. Active Active Problems Problem Noted Date Diagnosed Date Bilateral carpal tunnel syndrome 03/15/2024 Neck pain 12/16/2023 Numbness and tingling of both upper extremities 12/16/2023 S/P cervical spinal fusion 12/16/2023 Social History Tobacco Use Types Packs/Day Years Used Date Smoking Tobacco: Never Smokeless Tobacco: Never Tobacco Cessation:Counseling Given: Not Answered Alcohol Use Standard Drinks/Week Comments Yes 0 (1 standard drink = 0.6 oz pur e alcohol) [facility] of Occupat ional [facility] - Occupational Stress Questionnaire Answer Date Recorded [...] Zoster (Shingles) Vaccine (1 of 2) 2010 COVID-19 Vaccine ( - 2023-2 5 season) 2023 Influenza Vaccine 10/05/2024 RSV Vaccine 60 years and old er and Patients (1 - 1-dose 75+ series) 2035 Hepatitis B Vaccines Aged Out No long er eligible based on patient's age to complete this topic Insurance [employer] Care Teams Fire Hose Curer Relationship Specialty Start Date End Date Ankit Law MD [address] [place] [address] [place] [address] PCP - General Family Medicine 11/16/23
--- OUTSIDE RECORDS SUMMARY | 2024-07-13 14:48 | XMS_ITS | Encounter Summary ---
Author Organization [facility] Address [address] [place] [address] Care Team Providers Care Strategic Intelligence Officer Name Role Phone Ankit Law MD Primary Care Provider [phone] [phone] Encounter Details Date Type Department Care Team ([facility] st Contact Info) Description 02/15/2024 Scanned Document [facility] PHYSICAL MEDICINE & [facility] [address] [place] [phone] Luz Peralta MA [address] [place] [phone] Social History Tobacco Use Types Packs/Day Years Used Date Smoking Tobacco: Never Smokeless Tobacco: Never Alcohol Use Standard Drinks/Week Comments Yes 0 (1 standard drink = 0.6 oz pur e alcohol) [facility] [place] of Occupat ional Health - Occupational Stress [...] on filedocumented in this encounter Care Teams Strategic Intelligence Officer Relationship Specialty Start Date End Date Ankit Law MD [address] [place] [address] Dr Dior [address] [place] [address] PCP - General Family Medicine 11/16/23 documented as of this encounter
--- OUTSIDE RECORDS SUMMARY | 2024-07-13 14:48 | XMS_ITS | Encounter Summary ---
Author Organization [facility] Address [address] [place] [address] Care Team Providers Care Due Diligence Coordinator Name Role Phone Ankit Law MD Primary Care Provider [phone] Encounter Details Date Type Department Care Team (Late st Contact Info) Description 01/12/2024 Scanned Document [facility] PHYSICAL MEDICINE & REH[facility] [address] [place] [phone] Richard Zavala MA [address] [place] [phone] Social History Tobacco Use Types Packs/Day Years Used Date Smoking Tobacco: Never Smokeless Tobacco: Never Alcohol Use Standard Drinks/Week Comments Yes 0 (1 standard drink = 0.6 oz pur e alcohol) [facility] of Occupat ional Health - Occupational Stress [...] on filedocumented in this encounter Care Teams Due Diligence Coordinator Relationship Specialty Start Date End Date Ankit Law MD [address] [place] [address] Dr [address] [place], [place] [address] PCP - General Family Medicine 11/16/23 documented as of this encounter
--- OUTSIDE RECORDS SUMMARY | 2024-07-13 14:48 | XMS_ITS | Continuity of Care Document ---
Author Organization [facility] [place] Address [address] [facility] [place] [address] Care Team Providers Care Hospital Liaison Name Role Phone KARINA ASIF Administrative Sales Assistant [phone] Assessment Encounter Date Assessment Date Assessment LastModified by Organization Details LastModified Time 07/10/2024 07/10/2024 Right shoulder and arm symptomatology that began around 06/19/2024 presumably related to repetitive work activities. He then had a more specific pop in the arm on 06/22/2024 which may have been rupture of the long head of the biceps as he does have a Moises deformity today. Interesting that he does not have any swelling or bruising that would be consistent with a traumatic rupture. In any event I agree with moving forward with the shoulder MRI as he may have concomitant rotator cuff pathology. He does have a history of some neck issues and neck surgery. Cannot rule out a concomitant cervical radicular pattern particularly as he has some relief of his symptoms when he places his hand on top of his head. He asked to be out of work. I think based on his exam today he has at least a light duty capacity if it can be accommodated. We will see him back in a week or 2 to go over the MRI, sooner if any concerns arise. Not available 07/13/2024 08:16:10 Plan of Treatment Reminders Order Date Submit Date Provider Last Modified By Organization Details Last Modified Time Details Appointments WC RESULT 2024 01:30P Kiana Altamirano MD Not available Not available Not available Lab None recorded . Referral None recorded . Procedures None recorded . Surgeries None recorded . Imaging XR, shoulder , 2 or more view 2024 025 [facility], [address], [place], [address], 07/10/2024 09:21:28 Medication Orders None recorded . Patient TargetsNo targets recorded. Patient Instructions Encounter Date Encounter Id Patient Instructions Last Modified By Organization Details Last Modified Time 07/10/2024 [id number] work status report* - Continue until next appointment in one week Work restrictions: no lift push or pull with right arm no overhead use right shoulder no repetitive use right arm no climbing or crawling no work more than 5 hours per day Comments: MRI scheduled for this Tuesday [email or web address] Not available 07/10/2024 09:15:49 3 views of the right shoulder were obtained on 07/10/2024 in the [place] office. Glenohumeral joint space intact. Acromiohumeral interval intact. There is some nonspecific cystic changes around the greater tuberosity. Moderate degenerative changes at the AC joint. Type II acromion. Findings: Well-maintained glenohumeral joint space right shoulder. No acute fracture appreciated. Interpreted by: Phillip Altamirano MD Not available 07/13/2024 08:19:33 Reason for Referral None Reported. Problems Name Problem SNOMED Code Status Onset Date Resolution Date Notes Provider Name and Address Organization Details Recorded Time Injury of tendon of biceps brachii 472455245 Active 025 Phillip Altamirano MD [address], [place], [address] , [place] [facility] 09:08:38 Problem Notes None recorded. Procedures Surgical History Date Name Laterality Status Provider Name and Address Organization Details Recorded Time Knee Surgery completed Crystal [place] [facility] 07/10/2024 09:16:46 Imaging Results None recorded. Procedure Notes None recorded. Medical Equipment None Reported. Allergies Allergen ID Allergen Name Allergen Category Reaction Reaction Severity Criticality Documentation Date Start Date Code Code System Note Provider Name and Address Organization Details Recorded Time 64893 nut - unspecifi ed food Not available Not available Not available 07/10/2024 11526 UNK Crystal Hamilton [facility], [place] [facility] 09:15:02 Medications Name Sig Start Date Stop Date Status Note LastModified by Organization Details LastModified Time amoxicillin 500 mg capsule TAKE 1 CAPSULE BY MOUTH 3 TIMES A DAY UNTIL FINISHED *TAKE A PROBIOTIC * active Not Available Not Available No t Available hydrocodone 5 mg-acetaminoph en 325 mg tablet TAKE 1 TABLET EVERY 6 TO 8 HOURS NEEDED FOR PAIN active Not Available Not Available No t Available pantoprazole 40 mg tablet,delayed release TAKE 1 TABLET BY MOUTH EVERY MORNING active Not Available Not Available No t Available ibuprofen 600 mg tablet TAKE 1 TABLET EVERY 6 HOURS WITH FOOD DURING WAKING HOURS, NO MORE THAN 4 TABS/DAY active Not Available Not Available No t Available amoxicillin 875 mg-potassium clavulanate 125 mg tablet TAKE 1 TABLET BY MOUTH EVERY 12 HOURS FOR 7 DAYS active Not Available Not Available No t Available oxycodone 5 mg tablet TAKE 1 TABLET BY MOUTH EVERY 6 HOURS NEEDED FOR PAIN FOR 3 DAYS active Not Available Not Available No t Available chlorhexidine gluconate 0.12 % mouthwash RINSE WITH 1/2 OUNCE (15 MLS) TWICE A DAY, SPIT OUT, DO NOT SWALLOW active Not Available Not Available No t Available Vitals Date Recorded Body height Body mass index (BMI) Body weight Provider Name and Address Organization Details Last Updated DateTime 07/10/2024 175.26 cm 27.5 kg/m2 84331.18 g Ana Maria Hamilton [facility] 07/10/2024 09:15:14 Social History Question Answer Notes LastModified by Electronic Brailler ion Details LastModified Time Tobacco Smoking Status Never Smoker Ana Maria Soloriomikaela holloway [facility] 07/10/2024 09:15:29 What Is Your Level Of Alcohol Consumption? Occasional [email or web address] Information not available 07/10/2024 How Many Times Per Week Do You Consume Alcohol? 1-2 Times Per Week [email or web address] Information not available 07/10/2024 Are You Currently Employed? 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 No [email or web address] Information not available 07/10/2024 Do You Or Have You Ever Used Any Other Forms Of Tobacco Or Nicotine? No [email or web address] Information not available 07/10/2024 Sex: Unknown Functional Status None recorded. Mental Status None recorded. Family History Relationship Description Onset Age of this Age Resolved Age Notes LastModified by Organization Details LastModified Time Mother History of cancer of unknown primary site [email or web address] Not available 08/2024 09:16:07 Sister History of cancer of unknown primary site [email or web address] Not available 08/2024 09:16:15 Medical History Condition Response Diabetes Y Gout Y Rheumatoid Arthritis Y Past Encounters Encounter ID Performer Location Encounter Start Date Encounter Closed Date Diagnosis/Indication Diagnosis SNOMED-CT Code Diagnosis ICD10 Code Diagnosis Note [id number] MD CHRISTINE Kenny Morales [address] [place] [id number] 07/10/2024 08:28:59 07/10/2024 09:13:34 Pain of right shoulder joint 9684164216 4539789 M25.511 Injury of tendon of biceps brachii 509774110 S46.219A Health Concerns Section Related Observation LastModified by Organization Detai ls LastModified Time None Recorded Concern Status LastModified by Organization Details LastModified Time None Recorded Payers Encounter Date Sequence Insurance Name Policy Number Policy Blackmon Covered Member ID Blackmon Member ID Guarantor Name 07/10/2024 [facility] [id number] [facility] [employer] Anirudh Anderson Notes Date Note Type Note Provider Name and Address Organization Details Recorded Time 07/10/2024 text/html 64-year-old male here for an evaluation of acute right shoulder and arm pain that started on 06/19/2024. He tells me he was out in [place] performing some work. He was on a multilevel platform. In order to get down from the platform there are removable stairs but apparently they do not come up to the level of the platform requiring him to lean down and jump about 15 inches to the stairs. He was reaching out with his right arm throughout the day doing that. He also was repetitively using a scissor lift. He cannot recall 1 specific injury. He developed pain in the right shoulder and arm that became progressively worse. He believes he reported the pain to his office on 06/21/2024. Then on 06/22/2024 he states he had a pop . There was no bruising or swelling. He then noticed that he had some deformity of his biceps. He rates his current pain between a 5 to an 8 on a 10 point scale. He has tried rest, heat, and ice. He has been trying to be careful with lifting activities. Today he is feeling a little bit better. He was seen at [facility]. Apparently he has an MRI scheduled later on this week of his shoulder. He describes some burning and tingling in the arm. He also describes some neck pain, he relates a history of neck surgery. He derive some relief of symptoms if he places his hand on top of his head. He has carpal tunnel surgery scheduled on his right side on 07/23/2024 in [place]. 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 History of prednisone use. 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 Non-smoker. Phillip Altamirano MD [address], [place], [address], [place] [facility] 07/13/2024 08:19:45
--- OUTSIDE RECORDS SUMMARY | 2024-07-13 14:48 | XMS_ITS | Data Portability ---
Author Organization [facility] [place] Address [address] [place] [address] Care Team Providers Care Bottle Filler Name Role Phone KARINA ASIF School Photograph Editor Assessment Encounter Date Assessment Date Assessment LastModified [...] or more view 2024 025 [facility], [address], [place], [address], 07/10/2024 09:21:28 Medication Orders None recorded . Patient TargetsNo targets recorded. Patient Instructions Encounter Date Encounter Id Patient Instructions Last Modified By Organization Details Last Modified Time 07/10/2024 [id number] work status report* - Continue until next [...] shoulder were obtained on 07/10/2024 in the [place] office. Glenohumeral joint space intact. Acromiohumeral interval [...] Time Injury of tendon of biceps brachii 583489675 Active 025 Phillip Altamirano MD [address], [place], [address] , [place] [facility] [place] 09:08:38 Problem Notes None recorded. Procedures Surgical History Date Name Laterality Status Provider Name and Address Organization Details Recorded Time Knee Surgery completed [employer]TE[employer] [place] [facility] [place] 07/10/2024 09:16:46 Imaging Results None recorded. Procedure Notes None recorded. Medical Equipment None Reported. Allergies Allergen ID Allergen Name Allergen Category Reaction Reaction Severity Criticality Documentation Date Start Date Code Code System Note Provider Name and Address Organization Details Recorded Time 05586 nut - unspecifi ed food Not available Not available Not available 07/10/2024 92641 UNK Crystal Hamilton [facility], [place] [facility] [place] 09:15:02 Medications Name Sig Start Date [...] Updated DateTime 07/10/2024 175.26 cm 27.5 kg/m2 85812.18 g Ana Maria Hamilton [facility] 07/10/2024 09:15:14 Social History Question Answer Notes LastModified by Organizat ion Details LastModified Time Tobacco Smoking Status Never Smoker Ana Maria Huitrony [facility], [facility] [place] 07/10/2024 09:15:29 What Is Your Level Of Alcohol Consumption? Occasional [email or web address] Information not available 07/10/2024 How Many Times Per Week Do You Consume Alcohol? 1-2 Times Per Week [email or web address] Information not available 07/10/2024 Are You Currently Employed? 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 No [email or web address] Information not available 07/10/2024 Do You Or Have You Ever Used Any Other Forms Of Tobacco Or Nicotine? No [email or web address] Information not available 07/10/2024 Sex: Unknown Functional Status None recorded. Mental Status None recorded. Family History Relationship Description Onset Age of this Age Resolved Age Notes LastModified by Organization Details LastModified Time Mother History of cancer of unknown primary site Not available 08/2024 09:16:07 Sister History of cancer of unknown primary site [email or web address] Not available 08/2024 09:16:15 Medical History Condition Response Diabetes Y Gout Y Rheumatoid Arthritis Y Past Encounters Encounter ID Performer Location Encounter Start Date Encounter Closed Date Diagnosis/Indication Diagnosis SNOMED-CT Code Diagnosis ICD10 Code Diagnosis Note [id number] MD CHRISTINE Kenny [address] [place], [place] [address] [address] 07/10/2024 08:28:59 07/10/2024 09:13:34 Pain of right shoulder joint 4598779871 1417063 M25.511 Injury of tendon of biceps brachii 742655636 S46.219A Health Concerns Section Related Observation LastModified by Organization Detai ls LastModified Time None Recorded Concern Status LastModified by Organization Details LastModified Time None Recorded Advance Directives Directive None Recorded Payers Encounter Date Sequence Insurance Name Policy Number Policy Blackmon Covered Member ID Blackmon Member ID Guarantor Name 07/10/2024 [facility] [id number] [facility] MDKeisha Anderson Notes Date Note Type Note Provider Name and Address Organization Details Recorded Time 07/10/2024 text/html 64-year-old male here for an evaluation of acute right shoulder and arm pain that started on 06/19/2024. He tells me he was out in [place] performing some work. He was on a [...] on his right side on 07/23/2024 in [place]. 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 History of prednisone use. 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 Non-smoker. Phillip Altamirano MD [address], [place], [address], [place] [facility] 07/13/2024 08:19:45
--- OUTSIDE RECORDS SUMMARY | 2024-07-13 14:48 | XMS_ITS | Encounter Summary ---
Author Organization [facility] Address [address] [place] [address] Care Team Providers Care Computer Science Professor Name Role Phone Ankit Law MD Primary Care Provider [phone] [phone] Encounter Details Date Type Department Care Team ([facility] st Contact Info) Description 02/15/2024 Scanned Document [facility] PHYSICAL MEDICINE & REHAB [facility] [address] [place] [phone] Luz ePralta MA [address] [place] [phone] Social History Tobacco Use Types Packs/Day Years Used Date Smoking Tobacco: Never Smokeless Tobacco: Never Alcohol Use Standard Drinks/Week Comments Yes 0 (1 standard drink = 0.6 oz pur e alcohol) [facility] [place] of Occupat ional Health - Occupational Stress [...] on filedocumented in this encounter Care Teams Computer Science Professor Relationship Specialty Start Date End Date Ankit Law MD [address] [place] [address] Dr [address]ior [address] [place] [address] PCP - General Family Medicine 11/16/23 documented as of this encounter
--- NOTE | 2024-07-13 14:55 | MHC.OFFVIS ---
Vital Signs 07/13/24 15:06 Height 5 ft 9 in Weight 190 lb BMI 28.1 BP 86/66 L Blood Pressure Location Lt brachial Position Sitting Pulse 66 Pulse Source Pulse Oximeter Pulse Oximetry (%) 97 Oxygen Delivery Method Room Air Intake Visit Reasons: 1 year follow up Intake Note: ESTABLISHED PATIENT for mgmt of celiac and diabetes CC: CO nausea and general GI upset within 20-30 minutes of eating. Pt has attempted to identify triggers but has been unsuccessful. Pt still following celiac diet restrictions. No additional sx or concerns at this time. Utility Bill Collector Required: No Accompanied by: Spouse Allergies coconut Allergy (Severe, Verified 07/13/24 15:01) SWELLING tree nut [Tree Nut] Allergy (Severe, Verified 07/13/24 15:01) SWELLING FRUIT NUTS Allergy (Uncoded 07/13/24 15:01) Swelling HPI HPI 1 year follow up: Details: LAST VISIT: Celiac disease Postprandial epigastric pain Postprandial diarrhea Plan Occasional postprandial loose stools depending on what he eats otherwise patient is feeling well. Patient is avoiding gluten will test to check for compliance. Will also check vitamin-D, B12 and folate. He will return in the office in 1 year, sooner on as needed basis. He is agreeable to this plan and verbalizes understanding of instructions. He was given the opportunity to ask questions and all questions answered. ? Thank you for allowing me to participate in his care Orders Orders Vitamin D 25-OH (D2 and D3) 07/08/23 E55.9 Transglutaminase IgA 07/08/23 R10.9 Vitamin B12 and Folate 07/08/23 R19.7 TODAY'S VISIT: Patient is here today for follow-up. Patient is accompanied by his partner. Patient reports that he continues to have epigastric pain and abdominal bloating. Patient reports that he tries to avoid dietary triggers and specially gluten. Patient leukocyte the labels to make sure before he purchased any type of food. Labs from November discussed with patient again. Patient is transglutaminase elevated which means that he is not following gluten free diet. Discussed with patient that he should try to download an madie that will scan the items that he is purchasing. Patient reports that his acid reflux is suppressed for the most part with pantoprazole. Occasional acid reflux depending on what he eats. Patient reports that he will have occasional constipation. Sometimes does not feel like he empties his bowels completely. Reports occasional abdominal bloating. [facility] Medical History COVID-19 Diabetes Celiac disease Surgical History Hx of hand surgery H/O rotator cuff surgery H/O cervical discectomy History of total right knee replacement Family History Other Alcohol abuse Drug abuse Social History Housing: House Patient Tobacco Use Status: Former Tobacco user e-Cigarette/Vaping Use: Never Used service: Yes Current occupational status: unemployed Cognitive needs: No Hearing needs: No Vision needs: No Review of Systems Const Denies weight gain and Denies weight loss ENT Reports no additional complaints, Denies dysphagia and Denies odynophagia Card Reports no additional complaints Resp Reports no additional complaints GI Reports abdominal pain (Epigastric), Denies belching, Denies melena, Reports bloating, Denies change in bowel habits, Reports constipation, Denies dysphagia, Denies excessive flatus, Denies dyspepsia, Reports heartburn (Occasional), Denies diarrhea, Denies loose stools, Denies nausea, Denies odynophagia and Denies vomiting Reports no additional complaints Musc Reports no additional complaints Neuro Reports no additional complaints Psych Reports no additional complaints Endo Reports no additional complaints Physical Exam Vital Signs: Last Vital Signs Pulse 66 07/13/24 15:06 BP 86/66 L 07/13/24 15:06 Pulse Ox 97 07/13/24 15:06 Oxygen Delivery Method Room Air 07/13/24 15:06 BMI result Body Mass Index 28.1 Const General: healthy appearing, no acute distress and well developed Nutritional Appearance: well nourished Orientation/consciousness: patient oriented x3 Resp Effort & Inspection: normal respiratory effort, able to speak in complete sentences, no tracheal deviation and symmetric chest movement Auscultation: clear to auscultation bilaterally Cardio Rate: regular rate GI Inspection: Yes normal to inspection and No distended Palpation (GI): Soft to palpation, not firm, nontender and No hepatosplenomegaly present Auscultation: normal bowel sounds General: Yes no CVA tenderness Back/Spine/Pelvis Back: no CVA tenderness Skin General skin exam: elasticity normal, turgor normal and dry skin Neuro General: patient oriented x3 Psych Appearance: grossly normal Mental Status: mental status grossly normal Affect: normal affect Results Reviewed Results Reviewed: Laboratory Tests 12/03/23 07:33 25-OH Vitamin D Total 34 Folate 5.9 TSH 1.26 Tiss Transglutamin IgA >250.0 H Assessment & Plan Assessment & Plan (1) Celiac disease: Code(s): K90.0 - Celiac disease Category: Medical (2) Postprandial epigastric pain: Code(s): R10.13 - Epigastric pain (3) Postprandial diarrhea: Code(s): K52.9 - Noninfective gastroenteritis and colitis, unspecified (4) Constipation: Code(s): K59.00 - Constipation, unspecified Qualifiers: Constipation type: slow transit constipation Qualified Code(s): K59.01 - Slow transit constipation (5) GERD (gastroesophageal reflux disease): Code(s): K21.9 - Gastro-esophageal reflux disease without esophagitis Qualifiers: Esophagitis presence: esophagitis presence not specified Qualified Code(s): K21.9 - Gastro-esophageal reflux disease without esophagitis Plan We will repeat transglutaminase again. Patient has transglutaminase was still elevated which means that he is not following gluten free diet. Patient will try to download gluten free scanner so he can use it on his phone when he is doing grocery shopping. Patient can continue taking pantoprazole daily. Avoid dietary triggers and late night snacking. Staying upright for minimum 3 hours after meals discussed with patient. Patient will start taking Senokot. Increase fluid intake and activity to increase bowel motility. Patient will follow-up as needed. He will probably need to go for endoscopy next year. Patient was encouraged to call our office. He is agreeable to current plan of care and verbalizes understanding of instructions. He was given the opportunity to ask questions and all questions answered. Thank you for allowing me to participate in his care Orders: Orders Vitamin B12 and Folate 07/13/24 R19.7 - Diarrhea, unspecified Vitamin D 25-OH (D2 and D3) 07/13/24 E55.9 - Vitamin D deficiency, unspecified Transglutaminase IgA 07/13/24 R10.9 - Unspecified abdominal pain Medications: New sennosides (Natural Senna Laxative) 17.2 mg (2 x 8.6 mg) PO BEDTIME 60 tabs 3RF constipation K59.00 - Constipation, unspecified Coding Level of Care Code Est Pt Level 4 (99419) Complex EM visit Add On G2211 Diagnoses Celiac disease K90.0 Postprandial epigastric pain R10.13 Postprandial diarrhea K52.9 Slow transit constipation K59.01 Constipation type: slow transit constipation Gastroesophageal reflux disease, unspecified whether esophagitis present K21.9 Esophagitis presence: esophagitis presence not specified Time Spent (min) 35 Comment 25 minutes spent with patient and additional 10 minutes spent reviewing his records
[2024-07-13 15:06] VITALS: BP 86/66; PULSE 66; O2SAT 97; BMI 28.1
== END 2024-07-13 16:26 | disposition home or self-care (01) ==
LOC: HO.HGI 14:46
PROVIDERS: PCP Family Medicine; Visit Provider Nurse Practitioner Family
DX: K90.0 Celiac disease (principal); R10.13 Epigastric pain; K52.9 Noninfective gastroenteritis and colitis, unspecified; K21.9 Gastro-esophageal reflux disease without esophagitis
CPT/HCPCS: 99214

== ENCOUNTER 2024-07-25 06:21 | Day surgery (SDC) | payer OTHER, SELFPAY ==
--- OUTSIDE RECORDS SUMMARY | 2024-06-11 10:26 | XMS_ITS | Encounter Summary ---
Author Organization [facility] Address [address] [place] [address] Care Team Providers Care Data Integration Developer Name Role Phone Ankit Law MD Primary Care Provider [phone] [phone] Encounter Details Date Type Department Care Team ([facility] st Contact Info) Description 02/15/2024 Scanned Document [facility] PHYSICAL MEDICINE & REHAB [facility] [address] [place] [phone] Luz Peralta MA [address] [place] [phone] Social History Tobacco Use Types Packs/Day Years Used Date Smoking Tobacco: Never Smokeless Tobacco: Never Alcohol Use Standard Drinks/Week Comments Yes 0 (1 standard drink = 0.6 oz pur e alcohol) [facility] [place] of Occupat ional Health - Occupational Stress [...] on filedocumented in this encounter Care Teams Data Integration Developer Relationship Specialty Start Date End Date Ankit Law MD [address] [place] [address] Dr Hickey, [place]ON [address] PCP - General Family Medicine 11/16/23 documented as of this encounter
--- OUTSIDE RECORDS SUMMARY | 2024-06-11 10:26 | XMS_ITS | Encounter Summary ---
Author Organization [facility] Address [address] [place] [address] Care Team Providers Care Agent Name Role Phone Ankit Law MD Primary Care Provider +1 [phone] Encounter Details Date Type Department Care Team ([facility] st Contact Info) Description 02/15/2024 Scanned Document [facility] PHYSICAL MEDICINE & REHAB [facility] [address] [place] [phone] Luz Peralta MA [address] [place] [phone] Social History Tobacco Use Types Packs/Day Years Used Date Smoking Tobacco: Never Smokeless Tobacco: Never Alcohol Use Standard Drinks/Week Comments Yes 0 (1 standard drink = 0.6 oz pur e alcohol) [facility] [place] of Occupat ional Health - Occupational Stress [...] on filedocumented in this encounter Care Teams Agent Relationship Specialty Start Date End Date Ankit Law MD [address] [place] [address] Dr Hickey, [place] [address] PCP - General Family Medicine 11/16/23 documented as of this encounter
--- OUTSIDE RECORDS SUMMARY | 2024-06-11 10:26 | XMS_ITS | Encounter Summary ---
Author Organization [facility] Address [address] [place] [address] Care Team Providers Care Load Dispatcher Name Role Phone Ankit Law MD Primary Care Provider +1 [phone] Encounter Details Date Type Department Care Team ([facility] st Contact Info) Description 02/15/2024 Scanned Document [facility] PHYSICAL MEDICINE & REHAB [facility] [address] [place] [phone] Luz Peralta MA [address] [place] [phone] Social History Tobacco Use Types Packs/Day Years Used Date Smoking Tobacco: Never Smokeless Tobacco: Never Alcohol Use Standard Drinks/Week Comments Yes 0 (1 standard drink = 0.6 oz pur e alcohol) [facility] [place] of Occupat ional Health - Occupational Stress [...] on filedocumented in this encounter Care Teams Load Dispatcher Relationship Specialty Start Date End Date Ankit Law MD [address] [place] [address] Dr Hickey, [place]ON [address] PCP - General Family Medicine 11/16/23 documented as of this encounter
--- OUTSIDE RECORDS SUMMARY | 2024-06-11 10:26 | XMS_ITS | Clinical Summary ---
Author Organization [facility] Address [address] [place] [address] Care Team Providers Care Layboy Tender Name Role Phone Ankit Law MD Primary Care Provider +1- [phone] Allergies Active Allergy Reactions Criticality Noted Date [...] (two) times a day. Active Cannabis (MARIJUANA) [facility] Medical Prescription Strength Inhale. Act suki Active Problems Problem Noted Date Diagnosed Date Bilateral carpal tunnel syndrome 03/15/2024 Neck pain 12/16/2023 Numbness and tingling of both upper extremities 12/16/2023 S/P cervical spinal fusion 12/16/2023 Encounters Date Type Department Care Team Description 03/15/2024 1:00 PM EST Telemedicine [facility] Physical Medicine & Rehab [address] [place] [phone] Geoff Velazco MD Numbness and tingling of both upper extremities (Primary Dx); S/P cervical spinal fusion; Bilateral carpal tunnel syndrome 03/15/2024 Travel from Last 3 Months Social History Tobacco Use Types Packs/Day Years Used Date Smoking Tobacco: Never Smokeless Tobacco: Never Tobacco Cessation:Counseling Given: Not Answered Alcohol Use Standard Drinks/Week Comments Yes 0 (1 standard drink = 0.6 oz pur e alcohol) [facility] [place] of Occupat ional Health - Occupational Stress [...] age to complete this topic Care Teams Layboy Tender Relationship Specialty Start Date End Date Ankit Law MD [address] [place] [address] [place] [address] PCP - General Family Medicine 11/16/23
--- OUTSIDE RECORDS SUMMARY | 2024-06-11 10:26 | XMS_ITS | Encounter Summary ---
Author Organization [facility] Address [address] [place] [address] Care Team Providers Care Sports Fitness And Wellness Director Name Role Phone Ankit Law MD Primary Care Provider [phone] [phone] Encounter Details Date Type Department Care Team (Late st Contact Info) Description 01/12/2024 Scanned Document [facility] [address] [place] [phone] Richard Zavala MA [address] [place] [phone] Social History Tobacco Use Types Packs/Day Years Used Date Smoking Tobacco: Never Smokeless Tobacco: Never Alcohol Use Standard Drinks/Week Comments Yes 0 (1 standard drink = 0.6 oz pur e alcohol) [facility] of Occupat ional Health - Occupational Stress [...] on filedocumented in this encounter Care Teams Sports Fitness And Wellness Director Relationship Specialty Start Date End Date Ankit Law MD [address] [place] [address] [place] [address] PCP - General Family Medicine 11/16/23 documented as of this encounter
[2024-07-25 06:38] VITALS: BMI 27.0
[2024-07-25 06:43] VITALS: BP 100/59; PULSE 75; RESP 16; TEMP 36; O2SAT 96
--- NOTE | 2024-07-25 07:38 | P.OP_ITS ---
Operative Note Operative Note Date of Service: 07/25/24 Narrative: Preop diagnosis: 1. Right Carpal tunnel syndrome Postop diagnosis: same Procedure: 1. Right Carpal tunnel release Surgeon: Shelby Reese MD Production Control Clerk: Rafi VALADEZ Anesthesia: local block using 1% lidocaine with epinephrine Findings: Thickened transverse carpal ligament. EBL: Less than 5 mL Specimens: None Complications: None Disposition: Brought to recovery room in stable condition Plan: Follow-up for 10-14 days for wound check and suture removal Indications: The patient is 64 years old, with right carpal tunnel syndrome that has been unresponsive to nonoperative management. The risks and benefits of operative treatment including but not limited to risk of damage to blood vessels, nerves, tendons, infection, persistent pain, persistent symptoms, or possible need for additional surgery were discussed with the patient and the patient wishes to proceed with surgery. Procedure: Once consent was obtained a local block was performed using a combination of 1% lidocaine with epinephrine. The patient was then brought back to the operating suite and placed on the operative table in supine position. The right upper extremity was prepped and draped in a standard surgical fashion. Once assured that we had a good block, a 2.0 cm longitudinal incision was made centered over the carpal tunnel. The incision was made through the skin to the subcutaneous tissues using a #15 blade. Dissection was made down to the level of the transverse carpal ligament with care being taken to protect the palmar cutaneous nerve. Once the transverse carpal ligament was clearly visualized, a longitudinal incision was made in the transverse carpal ligament 1st using a #15 blade, then using tenotomy scissors under direct visualization. Care was taken to look for and protect the motor branch of the median nerve when seen in this area. Once satisfied with our carpal tunnel release the wound was copiously irrigated with normal saline and hemostasis was obtained with a brief period of local pressure. The skin edges were reapproximated with some 5.0 nylon suture material and a sterile dressing was applied. The patient appears to have tolerated the procedure well and with no complications. All digits were well vascularized at the conclusion of the case.
--- NOTE | 2024-07-25 07:38 | MHC.SHP ---
Pre-Procedural Eval Section A - 24 Hr Update-Section A only Date of Service: 07/25/24 The patient is an INPATIENT: No Changes since office visit: No Cold of Flu in the past 2 weeks, No New Medical Problems, No Changes in Medication and No Patient answered all questions The patient has been examined within 24 hours of the surgical procedure. The History & Physical has been completed within 30 days and I have reviewed it.: Yes Section B - Complete if H&P > 30 days Chief Complaint: Carpal tunnel syndrome, right upper limb Allergies: Allergies Allergy/AdvReac Type Severity Reaction Status Date / Time coconut Allergy Severe SWELLING Verified 07/13/24 15:01 tree nut [Tree Nut] Allergy Severe SWELLING Verified 07/13/24 15:01 FRUIT NUTS Allergy Swelling Uncoded 07/13/24 15:01 Plan Diagnosis/Plan: Unchanged I have reviewed the history and physical and performed a pertinent physical examination on my patient. No changes have occurred unless specified. Time Spent With Patient Time: Total time managing care of this patient today ____ minutes.
[2024-07-25 08:18] VITALS: BP 118/92; PULSE 76; RESP 18; O2SAT 97
== END 2024-07-25 08:19 | disposition home or self-care (01) ==
PROVIDERS: PCP Family Medicine; Visit Provider Orthopaedic Surgery
PROC: (CPT 64721; principal; 2024-07-25 07:30)
DX: G56.01 Carpal tunnel syndrome, right upper limb (principal); E11.9 Type 2 diabetes mellitus without complications; K90.0 Celiac disease; Z91.018 Allergy to other foods; Z91.09 Other allergy status, other than to drugs and biological substances; Z87.81 Personal history of (healed) traumatic fracture; Z87.828 Personal history of other (healed) physical injury and trauma; Z96.651 Presence of right artificial knee joint; Z98.890 Other specified postprocedural states; Z87.891 Personal history of nicotine dependence; Z56.0 Unemployment, unspecified
CPT/HCPCS: 64721; J0171; J2003

== ENCOUNTER → 2024-07-25 06:21 | Outpatient (BNV) | payer OTHER, SELFPAY | PROVIDERS: PCP Family Medicine; Visit Provider Orthopaedic Surgery | DX: G56.01 Carpal tunnel syndrome, right upper limb (principal) | CPT/HCPCS: 64721 ==

== ENCOUNTER 2024-08-06 08:02 | Outpatient (AMB) | payer OTHER, SELFPAY ==
--- NOTE | 2024-08-06 08:12 | A.OFFVIS_ITS ---
Vital Signs 08/06/24 08:13 Height 5 ft 9 in Weight 183 lb BMI 27.0 Intake Visit Reasons: PO RT CTR 07/25/24 AR Intake Note: Anirudh is a 64 year old right hand dominant male who presents today for a post operative visit s/p right carpal tunnel release by Dr Shelby Reese DOS: 07/23/24. States his symptoms are improving, still has little tingling on his index finger. Also stated he has limited ROM in right index finger. Allergies coconut Allergy (Severe, Verified 08/06/24 08:26) SWELLING tree nut [Tree Nut] Allergy (Severe, Verified 08/06/24 08:26) SWELLING FRUIT NUTS Allergy (Uncoded 08/06/24 08:26) Swelling PFSH Medical History COVID-19 Diabetes Celiac disease Surgical History Hx of hand surgery H/O rotator cuff surgery H/O cervical discectomy History of total right knee replacement Family History Other Alcohol abuse Drug abuse Social History Housing: House Patient Tobacco Use Status: Former Tobacco user e-Cigarette/Vaping Use: Never Used service: Yes Current occupational status: unemployed Cognitive needs: No Hearing needs: No Vision needs: No Physical Exam Vital Signs: BMI result Body Mass Index 27.0 Assessment & Plan Assessment & Plan (1) Right carpal tunnel syndrome: Code(s): G56.01 - Carpal tunnel syndrome, right upper limb Category: Medical (2) Left carpal tunnel syndrome: Code(s): G56.02 - Carpal tunnel syndrome, left upper limb Category: Medical Plan History of Present Illness The patient is a 64-year-old male presenting with postoperative follow-up for a right carpal tunnel release and associated hand symptoms. The procedure was performed due to more severe symptoms in the right hand, and while the incision has healed well, he continues to experience pain in the right index finger. This has been associated with severe pain and limited range of motion, suggestive of pre-trigger tendinitis. There is concern about a developing trigger thumb, which was not an issue prior to his earlier left-hand carpal tunnel surgery. Review of Systems - Musculoskeletal: Reports pain and limited range of motion in one finger. Reports thumb locking. Reports possible past biceps tendon rupture. - Neurological: Reports tingling in one finger. Systems reviewed and are negative except as per HPI and below Physical Exam - Incision- Right carpal tunnel release incision appears well-healed with no redness, swelling, or discharge. some very mild tingling noted of the right middle finger, otherwise symptoms have resolved Results Procedure Plan Post right carpal tunnel release, the incision shows good healing progress. The patient's complaints of finger tingling and pain are addressed with a referral for occupational therapy to enhance range of motion. A steroid injection is defe rred at this time to allow sufficient healing. Surgical intervention for a developing trigger thumb may coincide with future left hand carpal tunnel release if needed. Activity restrictions following the surgery remain in effect for one more week, with a gradual return to full activities over the following weeks. Management of wound care with appropriate dressing is advised when necessary. Patient was informed and verbally consented to the use of an ambient scribe for clinic note documentation during this visit. Discussion Notes During the visit, I reviewed the patient's postoperative progress from his right carpal tunnel release, noting excellent wound healing. Concerns about persistent finger tingling and pain, likely from pre-trigger tendinitis, were discussed with the recommendation of occupational therapy to improve range of motion. I explained the initial reluctance to use steroid injections to protect the surgical site and suggested OT as the first approach. The issue of the developing trigger thumb was highlighted, and I mentioned the option of addressing this concurrently with any future carpal tunnel release on the opposite hand. I emphasized current restrictions, recommending against submersion and strenuous use of the hand for another week, transitioning to full activity based on healing progression. The patient expressed interest in potential management options for a significant delay in treating an old biceps tendon rupture, understanding the limitations presented by delayed surgery. Future consultations and monitoring were offered based on his continuing hand issues and preference regarding potential surgery. Patient Instructions - Call OT to schedule an appointment in 1-2 days. - Continue to keep the incision dry for one more week; avoid submersion or dirty activities. - Lift nothing heavier than a cell phone for two more weeks. - Apply a light dressing to the incision when outside for the next four to five days. - Leave incision open to air at home after five days. - Call for concerns regarding finger or thumb symptoms or if interested in discussing the other hand or potential surgeries further. Orders: Orders OT Evaluation and Treatment Today G56.01 - Carpal tunnel syndrome, right upper limb Coding Level of Care Code Global (74329) Diagnoses Right carpal tunnel syndrome G56.01 Left carpal tunnel syndrome G56.02
[2024-08-06 08:13] VITALS: BMI 27.0
== END 2024-08-06 08:34 | disposition home or self-care (01) ==
LOC: HO.HOS 08:03
PROVIDERS: PCP Family Medicine
DX: G56.03 Carpal tunnel syndrome, bilateral upper limbs (principal)
CPT/HCPCS: 99024

== ENCOUNTER 2024-08-16 13:17 | Outpatient (AMB) | payer OTHER, SELFPAY ==
--- NOTE | 2024-08-16 13:19 | A.OFFPC_ITS ---
Vital Signs 08/16/24 13:24 Height 5 ft 9 in Weight 185 lb 2 oz BMI 27.3 BP 102/68 Blood Pressure Location Lt brachial Position Sitting Respiration 18 Pulse 83 Pulse Source Pulse Oximeter Temp 97.5 F Temp Source Temporal Artery Scan Pulse Oximetry (%) 97 Oxygen Delivery Method Room Air Intake Visit Reasons: ed follow up Intake Note: Anirudh presents in the office today for an ER Follow up. Allergies coconut Allergy (Severe, Verified 08/16/24 13:22) SWELLING tree nut [Tree Nut] Allergy (Severe, Verified 08/16/24 13:22) SWELLING FRUIT NUTS Allergy (Uncoded 08/16/24 13:22) Swelling Tobacco use date assessed: 08/16/24 Dental Screening Dental Screen Date: 08/16/24 Did you have a dental visit in the last 12 months?: Yes Did you have a dental problem in the last 6 months where you did not have access to dental care?: No Was dental information given to patient?: Patient has dentist HPI ed follow up HPI Details 64 y/o male presents to f/u ED visit 07/29 for what had sounded like recurrent episode of diverticulitis. Exam had been concerning given diffuse guarding with peritonitis. CT abdomen pelvis with sigmoid divertuculitis. No evidence of complication. Was treated with ceftriaxone and Flagyl. Discharged with augmentin x7 days. A1c today 08/16/24 6.1%. HPI Comments History of Present Illness Details Documentation assistance for Ankit Law MD, was provided by Renan Templeton,? Handle Rounder Operator on 08/16/2024 at 1:30 PM EST. I, Dr. Law, have read, observed, and verified documentation. ?? PFSH Medical History COVID-19 Diabetes Celiac disease Surgical History Hx of hand surgery H/O rotator cuff surgery H/O cervical discectomy History of total right knee replacement Family History Other Alcohol abuse Drug abuse Social History (Updated 08/16/24 @ 13:24 by Jonna Ortiz MA) Housing: House Alcohol intake: current Patient Tobacco Use Status: Former Tobacco user e-Cigarette/Vaping Use: Never Used Use of substances other than those prescribed or required for medical reasons: No service: Yes Current occupational status: unemployed Cognitive needs: No Hearing needs: No Vision needs: No Questionnaire Thrive Questionnaire Date Thrive assessed: 03/09/24 I am a: Patient What is your living situation today?: I have a steady place to live Within the past 12 months, did the food you bought not last and you didn't have the money to get more?: Never true Within the past 12 months, did you worry whether your food would run out before you got money to buy more?: Never true Do you have trouble paying for medicines?: No Do you have trouble getting transportation to medical appointments?: No Do you have trouble paying your heating and electricity bill?: No Do you have trouble taking care of your child, family member or friend?: No Do you have trouble with day-to-day activities such as bathing, preparing meals, shopping, managing finances, etc.?: No Are you currently unemployed and looking for a job?: No Are you interested in more education?: No Please select the resources that you would like help with: None Currently or been in a relationship where the following occur: No concerns reported THRIVE Score: 0 LAYO-7 AMB Questionnaire LAYO-7 Date LAYO - 7 assessed: 02/25/23 Source: Developed by Drs. Jose Faulkner, Marjorie Gonzalez, Luis Felipe Palacios and colleagues, with an educational juanpablo from [employer]. Review of Systems Const Denies chills, Denies fatigue, Denies fever(s), Denies headache(s) and Denies weakness ENT Denies dizziness and Denies headache(s) Card Denies dyspnea Resp Denies cough, Denies dyspnea, Denies wheezing and Denies other (shortness of breath) Musc Denies numbness and Denies tingling Neuro Denies dizziness, Denies headache(s), Denies numbness, Denies tingling and Denies weakness Psych Denies anxiety and Denies depression Endo Denies fatigue Aller/Immun Denies wheezing Physical exam (Primary Care) Vital Signs: Last Vital Signs Temp 97.5 F 08/16/24 13:24 Pulse 83 08/16/24 13:24 Resp 18 08/16/24 13:24 BP 102/68 08/16/24 13:24 Pulse Ox 97 08/16/24 13:24 Oxygen Delivery Method Room Air 08/16/24 13:24 BMI result Body Mass Index 27.3 Tobacco/Smoking Status: Tobacco use Status Tobacco use date assessed 08/16/24 08/16/24 13:24 Patient Tobacco Use Status Former Tobacco user 08/16/24 13:24 e-Cigarette/Vaping Use Never Used 08/16/24 13:24 Thrive Assessment: Date of Thrive Assessment Date Thrive assessed 03/09/24 08/16/24 13:21 Currently or been in a relationship where the following occur: No concerns reported Const General: well developed; No acute distress Nutritional Appearance: well nourished Orientation/consciousness: patient oriented x3 HENMT Head: Yes normocephalic and Yes atraumatic Eyes General: appearance normal, both eyes and all related structures Pupils: Equal, round and reactive pupils present EOM: EOMs intact bilaterally Resp Effort & Inspection: normal respiratory effort Auscultation: clear to auscultation bilaterally Cardio Rate: regular rate Rhythm: regular rhythm Heart sounds: S1 normal heart sound present, S2 normal heart sound present, no gallops, no murmurs and no rubs Neuro General: patient oriented x3 and gait normal Cranial nerves: Yes Equal, round and reactive pupils present Psych Affect: normal affect Results AMB Hemoglobin A1c AMB Hemoglobin A1c 6.1 % Last Edit by Jonna Ortiz MA on 08/16/24 13:39 Coding Level of Care Code Est Pt Level 3 (30988) Diagnoses Sigmoid diverticulitis K57.32 Diabetes E11.9 Assessment & Plan Assessment & Plan (1) Sigmoid diverticulitis: Code(s): K57.32 - Diverticulitis of large intestine without perforation or abscess without bleeding Category: Medical Plan: Patient?with?history?of?diverticulitis?presented?to?the?emergency?department?wit h?low?abdominal?pain?and?CT?showed?recurrent?diverticulitis. He?was?given?ceftriaxone?and?Flagyl. Also?given?fluids?and?pain?medication Patient?responded?well Discharged?with?Augmentin?x7?days. Patient?finished?last?dose?of?Augmentin?today. Feeling?well. Resolved.??Hydrate?well Regular?/ diabetic ?diet (2) Diabetes: Code(s): E11.9 - Type 2 diabetes mellitus without complications Category: Medical Plan: A1c?6.1%. Improved Good?diet?control Continue?diet-controlled?diabetes Orders: Orders AMB Hemoglobin A1c Today E11.9 - Type 2 diabetes mellitus without complications
[2024-08-16 13:24] VITALS: BP 102/68; PULSE 83; RESP 18; TEMP 36.4; O2SAT 97; BMI 27.3
--- OUTSIDE RECORDS SUMMARY | 2024-08-16 15:27 | XMS_ITS | Encounter Summary ---
Author Organization [facility] Address [address] [place] [address] Care Team Providers Care Sharepoint Admin Name Role Phone Ankit Law MD Primary Care Provider [phone] Encounter Details Date Type Department Care Team ([facility] st Contact Info) Description 02/15/2024 Scanned Document [facility]YSICAL MEDICINE & [facility]HAB [facility] [address] [place] [id number] Luz Prealta MA [address] [place] [id number] Social History Tobacco Use Types Packs/Day Years Used Date Smoking Tobacco: Never Smokeless Tobacco: Never Alcohol Use Standard Drinks/Week Comments Yes 0 (1 standard drink = 0.6 oz pur e alcohol) [facility] [place] - Occupational Stress [...] on filedocumented in this encounter Care Teams Sharepoint Admin Relationship Specialty Start Date End Date Ankit Law MD [address] [place] [address] [address] [id number] PCP - General Family Medicine 11/16/23 documented as of this encounter
== END 2024-08-16 13:58 | disposition home or self-care (01) ==
LOC: HO.HMCFM 13:17
PROVIDERS: PCP Family Medicine; Visit Provider Family Medicine
DX: K57.32 Diverticulitis of large intestine without perforation or abscess without bleeding (principal); E11.9 Type 2 diabetes mellitus without complications

== ENCOUNTER → 2024-08-16 13:17 | Outpatient (BNVA) | payer OTHER, SELFPAY | PROVIDERS: PCP Family Medicine; Visit Provider Family Medicine | DX: E11.9 Type 2 diabetes mellitus without complications (principal); Z87.19 Personal history of other diseases of the digestive system | CPT/HCPCS: 83036 ==

== ENCOUNTER 2024-08-27 06:57 | Outpatient (RCR) | payer OTHER, SELFPAY ==
--- NOTE | 2024-08-13 08:57 | MHC.OT.EP ---
[address] [phone] Occupational Therapy Plan of Care Patient Name: Anirudh Anderson Date of Evaluation: 08/13/24 Diagnosis: Right CTR Pain Location: Low pain at rest, discomfort through index and thumb 2/10 Pain increases with heavy use 8/10 Pain Score: 2 Pain Scale Used: Numeric (0 - 10) Aggravating Factors: General use, movements, strengthening Alleviating Factors: Ice packs, heat packs Assessment: 64 yo male w/ hx of right CTS, now post-op carpal tunnel release 07/25/24. On assessment today, he is healing well postoperatively with minimal surgical pain and good range in hand and wrist. He does have symptoms consistent with CMC arthritis as well as grade two trigger finger in right index. He has been wearing prefab index splint but not consistently and we discussed constant wear to trial for trigger finger management. He is also awaiting further management of right bicep tear and shoulder.neck injury that occurred in June and is being managed through worker's comp. We will continue brief course of OT to progress scar management, range and strength, I anticipate he will do well. Frequency and Duration: The patient will be seen 1x/wk for 3 weeks Short Term Goals: Ind w/ HEP Ind w/ scar massage/management Ind w/ heat/cold modalities as appropriate Progress to strengthening (if able to avoid index gripping) Operations [place] Goals: Same as above Treatment Plan: Therapeutic Exercise Therapeutic Activity Home Exercise Program Patient Education Desensitization/Sensory Re-ed Edema Control ADL Training Paraffin Fluidotherapy MHP Cold Packs Joint Mobilization Soft Tissue Mobilization Kinesiotaping Electronically Signed By: MARILIA Benoit/L CHT Please Sign and return to therapist. Thank you once again for your referral.
--- NOTE | 2024-08-27 11:38 | MHC.OT.DC ---
[address] [phone] F: [phone] Occupational Therapy Discharge Note Patient Name: Anirudh Anderson Provider: Rafi Rodriguez PA-C Diagnosis: Right CTR Date of Surgery: 07/25/24 Date of Evaluation: 08/13/24 Date of Discharge: 08/27/24 Treatments to Date: 3 Discharge Status: Achieved Goals Improved Function Independent with HEP Discharge Summary: Anirudh is about 5 weeks post-op R CTR and doing well. Surgical scar is healing well w/ soft scar feel. He has low pain in wrist and good follow through w/ exercises, but some difficulty w/ progressing w/ activity due to index trigger finger. He is doing well w/ Oval 8 wear. OT goals met and Ind w/ self management. Will f/u w/ ortho for trigger finger as needed. Electronically Signed By: Valentina Rico OTR/L CHT Reviewed/agree with student documentation: Therapist: Please Sign and return to therapist, thank you for your referral.
== END 2024-08-27 11:43 | disposition home or self-care (01) ==
LOC: HO.OT 06:57
PROVIDERS: PCP Family Medicine
DX: Z48.811 Encounter for surgical aftercare following surgery on the nervous system (principal)
CPT/HCPCS: 97110; 97140; 97165

== ENCOUNTER 2024-09-24 13:23 | Outpatient (AMB) | payer OTHER, SELFPAY ==
--- NOTE | 2024-09-24 13:24 | A.OFFVIS_ITS ---
Vital Signs 09/24/24 13:34 Height 5 ft 9 in Weight 178 lb BMI 26.3 BP 118/78 Blood Pressure Location Rt brachial Position Sitting Pulse 54 Pulse Source Pulse Oximeter Pulse Oximetry (%) 98 Oxygen Delivery Method Room Air Intake Visit Reasons: diverticulitis, pt in [facility] on 09/21 Intake Note: Est pt for urgent FUV after being seen in urgent care for chest / abd pain. CC; C.O. severe diarrhea, epigastric pain, lack of appetite, general malaise. Pt originally seen at [facility] and transferred via EMS to [facility] for DC concerns. Cupola Charger Required: No Accompanied by: Self / Same As Patient Allergies coconut Allergy (Severe, Verified 09/24/24 13:33) SWELLING tree nut (Tree Nut) Allergy (Severe, Verified 09/24/24 13:33) SWELLING FRUIT NUTS Allergy (Uncoded 09/24/24 13:33) Swelling HPI HPI diverticulitis, pt in [facility] on 09/21: Details: LAST VISIT: Office Visit (Signed) - 07/13/24 14:55 Celiac disease Postprandial epigastric pain Postprandial diarrhea Constipation GERD (gastroesophageal reflux disease) Plan We will repeat transglutaminase again. Patient has transglutaminase was still elevated which means that he is not following gluten free diet. Patient will try to download gluten free scanner so he can use it on his phone when he is doing grocery shopping. Patient can continue taking pantoprazole daily. Avoid dietary triggers and late night snacking. Staying upright for minimum 3 hours after meals discussed with patient. Patient will start taking Senokot. Increase fluid intake and activity to increase bowel motility. Patient will follow-up as needed. He will probably need to go for endoscopy next year. Patient was encouraged to call our office. He is agreeable to current plan of care and verbalizes understanding of instructions. He was given the opportunity to ask questions and all questions answered. ? Thank you for allowing me to participate in his care Orders Vitamin B12 and Folate 07/13/24 R19.7 Vitamin D 25-OH (D2 and D3) 07/13/24 E55.9 Transglutaminase IgA 07/13/24 R10.9 New sennosides (Natural Senna Laxative) 17.2 mg (2 x 8.6 mg) PO BEDTIME 60 tabs 3RF constipation K59.00 TODAY'S VISIT Patient is here today after seen in the ED few days ago. Patient went to urgent care on TuesdaySeptember 21 with abdominal pain. Patient at the same time was re porting shortness of breath a chest pain, staff called the ambulance and patient was sent to [facility] for evaluation. Patient had CT scan done that showed sigmoid diverticulitis the, patient was placed on Augmentin. Labs showed no leukocytosis. Patient has been on clear liquid diet since. This morning he had bowl of cereal. Still continues with left lower quadrant pain and still has few doses of antibiotic left. Patient is taking probiotics daily. Currently his bowels are loose. Patient admits that he has not been taking or eating anything except for mostly clear with clips tell yesterday afternoon. Patient denies any fever or chills. Denies any melena, hematochezia. Patient reports that in June and again in August he has diverticulitis. In less than a year patient had 4 episodes of diverticulitis. Patient feels very frustrated [facility] Medical History COVID-19 Diabetes Celiac disease Surgical History Hx of hand surgery H/O rotator cuff surgery H/O cervical discectomy History of total right knee replacement Family History Other Alcohol abuse Drug abuse Social History Housing: House Alcohol intake: current Patient Tobacco Use Status: Former Tobacco user e-Cigarette/Vaping Use: Never Used service: Yes Current occupational status: unemployed Cognitive needs: No Hearing needs: No Vision needs: No Review of Systems Const Denies weight gain and Denies weight loss ENT Reports no additional complaints, Denies dysphagia and Denies odynophagia Card Reports no additional complaints Resp Reports no additional complaints GI Reports abdominal pain (Epigastric), Denies belching, Denies melena, Reports bloating, Denies change in bowel habits, Reports constipation, Denies dysphagia, Denies excessive flatus, Denies dyspepsia, Reports heartburn (Occasional), Denies diarrhea, Denies loose stools, Denies nausea, Denies odynophagia and Denies vomiting Reports no additional complaints Musc Reports no additional complaints Neuro Reports no additional complaints Psych Reports no additional complaints Endo Reports no additional complaints Physical Exam Const General: healthy appearing, no acute distress and well developed Nutritional Appearance: well nourished Orientation/consciousness: patient oriented x3 Resp Effort & Inspection: normal respiratory effort, able to speak in complete sentences, no tracheal deviation and symmetric chest movement Auscultation: clear to auscultation bilaterally Cardio Rate: regular rate GI Inspection: Yes normal to inspection and No distended Palpation (GI): Soft to palpation, not firm, Tenderness to palpation present (GI) (LLQ) and No hepatosplenomegaly present Auscultation: normal bowel sounds General: Yes no CVA tenderness Back/Spine/Pelvis Back: no CVA tenderness Skin General skin exam: elasticity normal, turgor normal and dry skin Neuro General: patient oriented x3 Psych Appearance: grossly normal Mental Status: mental status grossly normal Affect: normal affect Assessment & Plan Assessment & Plan (1) Celiac disease: Code(s): K90.0 - Celiac disease Category: Medical (2) Sigmoid diverticulitis: Code(s): K57.32 - Diverticulitis of large intestine without perforation or abscess without bleeding Category: Medical (3) Postprandial epigastric pain: Code(s): R10.13 - Epigastric pain (4) Postprandial diarrhea: Code(s): K52.9 - Noninfective gastroenteritis and colitis, unspecified (5) Constipation: Code(s): K59.00 - Constipation, unspecified Qualifiers: Constipation type: slow transit constipation Qualified Code(s): K59.01 - Slow transit constipation (6) Gastroesophageal reflux disease: Code(s): K21.9 - Gastro-esophageal reflux disease without esophagitis Qualifiers: Esophagitis bleeding: without hemorrhage Esophagitis presence: with esophagitis Qualified Code(s): K21.00 - Gastro-esophageal reflux disease with esophagitis, without bleeding Plan Referral to surgery. Patient was encouraged to slowly increase fiber in his diet. Making sure that he steams all vegetables. MiraLax daily. Patient was educated to continue low residue diet until he is pain-free. Continue pantoprazole. Avoid dietary triggers and late night snacking. Staying upright for minimum 3 hours after meals discussed with patient. Patient will follow-up in 2 months, sooner on as needed basis. Patient is agreeable to plan of care and verbalizes understanding of instructions. He was given the opportunity to ask questions and all questions answered. Thank you for allowing me to participate in his care Orders: Referrals General Surgery Referral K57.32 - Diverticulitis of large intestine without perforation or abscess without bleeding Medications: New polyethylene glycol 3350 (Miralax) 17 grams PO DAILY 510 grams 2RF Coding Level of Care Code Est Pt Level 5 (33705) Diagnoses Celiac disease K90.0 Sigmoid diverticulitis K57.32 Postprandial epigastric pain R10.13 Postprandial diarrhea K52.9 Slow transit constipation K59.01 Constipation type: slow transit constipation Gastroesophageal reflux disease with esophagitis without hemorrhage K21.00 Esophagitis bleeding: without hemorrhage Esophagitis presence: with esophagitis Time Spent (min) 45 Comment 30 minutes spent with patient and additional 15 minutes spent reviewing his records
[2024-09-24 13:34] VITALS: BP 118/78; PULSE 54; O2SAT 98; BMI 26.3
--- OUTSIDE RECORDS SUMMARY | 2024-09-24 14:08 | XMS_ITS | Encounter Summary ---
Author Organization [facility] Address [address] [place] [address] Care Team Providers Care Buzzsaw Operator Helper Name Role Phone Ankit Law MD Primary Care Provider [phone] Encounter Details Date Type Department Care Team ([facility] st Contact Info) Description 02/15/2024 Scanned Document [facility] PHYSICAL MEDICINE & REHAB [facility] [address] [place] [id number] Luz Peralta MA [address] [place] [id number] Social History Tobacco Use Types Packs/Day Years Used Date Smoking Tobacco: Never Smokeless Tobacco: Never Alcohol Use Standard Drinks/Week Comments Yes 0 (1 standard drink = 0.6 oz pur e alcohol) [facility] [place] [facility] - Occupational [...] on filedocumented in this encounter Care Teams Buzzsaw Operator Helper Relationship Specialty Start Date End Date Ankit Law MD [address] [place] [address] [address] [id number] PCP - General Family Medicine 11/16/23 documented as of this encounter
== END 2024-09-24 13:58 | disposition home or self-care (01) ==
LOC: HO.HGI 13:24
PROVIDERS: PCP Family Medicine; Visit Provider Nurse Practitioner Family
DX: K90.0 Celiac disease (principal); K57.32 Diverticulitis of large intestine without perforation or abscess without bleeding; K52.9 Noninfective gastroenteritis and colitis, unspecified; K21.00 Gastro-esophageal reflux disease with esophagitis, without bleeding
CPT/HCPCS: 99215

== ENCOUNTER 2024-12-13 15:26 | Outpatient (AMB) | payer OTHER, SELFPAY ==
--- NOTE | 2024-12-13 15:30 | A.OFFPC_ITS ---
Vital Signs 12/13/24 15:39 Height 5 ft 9 in Weight 203 lb 4 oz BMI 30.0 BP 135/69 Blood Pressure Location Lt brachial Position Sitting Respiration 13 Pulse 84 Pulse Source Pulse Oximeter Temp 97.2 F Temp Source Temporal Artery Scan Pulse Oximetry (%) 98 Oxygen Delivery Method Room Air Intake Visit Reasons: f/u diet controlled diabetes Intake Note: Follow up on dm and physical form. Stripper Machine Operator Required: No Allergies coconut Allergy (Severe, Verified 12/13/24 15:31) SWELLING tree nut (Tree Nut) Allergy (Severe, Verified 12/13/24 15:31) SWELLING FRUIT NUTS Allergy (Uncoded 12/13/24 15:31) Swelling Medication List - Last Reconciled 12/13/24 by Ankit Law MD amoxicillin-pot clavulanate 500-125 mg (Augmentin) 1 tab PO BID cetirizine (Zyrtec) 10 mg PO DAILY ibuprofen mg PO lactobacillus combination no.9 (Adult 50 Plus Probiotic) 4,000 mmu cells PO DAILY multivitamin 1 tab PO DAILY pantoprazole 40 mg PO QAM polyethylene glycol 3350 (Miralax) 17 grams PO DAILY zinc acetate 25 mg PO DAILY Tobacco use date assessed: 12/13/24 Fall risk assessment: No Falls in past year Last assessed Fall Risk: 12/13/24 Dental Screening Dental Screen Date: 12/13/24 Did you have a dental visit in the last 12 months?: Yes Did you have a dental problem in the last 6 months where you did not have access to dental care?: No Was dental information given to patient?: Patient has dentist HPI f/u diet controlled diabetes HPI Details 64 y/o male presents to f/u diet control led diabetes. A1c today 12/13/24 6.1%. Complaints of R biceps tendon rupture. [facility] Medical History COVID-19 Diabetes Celiac disease Surgical History Hx of hand surgery H/O rotator cuff surgery H/O cervical discectomy History of total right knee replacement Family History Other Alcohol abuse Drug abuse Social History Housing: House Alcohol intake: current Patient Tobacco Use Status: Former Tobacco user e-Cigarette/Vaping Use: Never Used service: Yes Current occupational status: unemployed Cognitive needs: No Hearing needs: No Vision needs: No Questionnaire Thrive Questionnaire Date Thrive assessed: 03/09/24 I am a: Patient What is your living situation today?: I have a steady place to live Within the past 12 months, did the food you bought not last and you didn't have the money to get more?: Never true Within the past 12 months, did you worry whether your food would run out before you got money to buy more?: Never true Do you have trouble paying for medicines?: No Do you have trouble getting transportation to medical appointments?: No Do you have trouble paying your heating and electricity bill?: No Do you have trouble taking care of your child, family member or friend?: No Do you have trouble with day-to-day activities such as bathing, preparing meals, shopping, managing finances, etc.?: No Are you currently unemployed and looking for a job?: No Are you interested in more education?: No Please select the resources that you would like help with: None Currently or been in a relationship where the following occur: No concerns reported THRIVE Score: 0 LAYO-7 AMB Questionnaire LAYO-7 Date LAYO - 7 assessed: 02/25/23 Source: Developed by Drs. Jose Faulkner, Marjorie Gonzalez, Luis Felipe Palacios and colleagues, with an educational juanpablo from [employer]. Review of Systems Const Denies chills, Denies fatigue, Denies fever(s), Denies headache(s) and Denies weakness ENT Denies dizziness and Denies headache(s) Card Denies dyspnea Resp Denies cough, Denies dyspnea, Denies wheezing and Denies other (shortness of breath) Musc Denies numbness and Denies tingling Neuro Denies dizziness, Denies headache(s), Denies numbness, Denies tingling and Denies weakness Psych Denies anxiety and Denies depression Endo Denies fatigue Aller/Immun Denies wheezing Physical exam (Primary Care) Vital Signs: Last Vital Signs Temp 97.2 F 12/13/24 15:39 Pulse 84 12/13/24 15:39 Resp 13 12/13/24 15:39 BP 135/69 12/13/24 15:39 Pulse Ox 98 12/13/24 15:39 Oxygen Delivery Method Room Air 12/13/24 15:39 BMI result Body Mass Index 30.0 Tobacco/Smoking Status: Tobacco use Status Tobacco use date assessed 12/13/24 12/13/24 15:33 Patient Tobacco Use Status Former Tobacco user 12/13/24 15:30 e-Cigarette/Vaping Use Never Used 12/13/24 15:30 Thrive Assessment: Date of Thrive Assessment Date Thrive assessed 03/09/24 12/13/24 15:30 Currently or been in a relationship where the following occur: No concerns reported Const General: well developed; No acute distress Nutritional Appearance: well nourished Orientation/consciousness: patient oriented x3 HENMT Head: Yes normocephalic and Yes atraumatic Eyes General: appearance normal, both eyes and all related structures Pupils: Equal, round and reactive pupils present EOM: EOMs intact bilaterally Resp Effort & Inspection: normal respiratory effort Neuro General: patient oriented x3 and gait normal Cranial nerves: Yes Equal, round and reactive pupils present Psych Affect: normal affect Results AMB Hemoglobin A1c AMB Hemoglobin A1c 6.1 % Last Edit by Abilio García MA on 12/13/24 15:51 Results Reviewed Results Reviewed: Laboratory Last Values Hgb A1c (Clinic) 6.1 % (4.0-6.0) H 12/13/24 15:46 Coding Level of Care Code Est Pt Level 3 (58118) Diagnoses Diet-controlled diabetes mellitus E11.9 Rupture of right biceps tendon S46.211A Assessment & Plan Assessment & Plan (1) Diet-controlled diabetes mellitus: Code(s): E11.9 - Type 2 diabetes mellitus without complications Category: Medical Plan: A1c stable at 6.1%. Good control. Goal is less than 7.0% Continue diet control (2) Rupture of right biceps tendon: Code(s): S46.211A - Strain of muscle, fascia and tendon of other parts of biceps, right arm, initial encounter Category: Medical Plan: Ruptured right biceps tendon He has already undergone physical therapy Encouraged him to continue exercises to keep are muscles strong Orders: Orders Comprehensive [place]. Panel Fast Today Z00.00 - Encounter for general adult medical examination without abnormal findings Complete Blood Count Auto Diff Today Z00.00 - Encounter for general adult medical examination without abnormal findings Vitamin D 25-OH Total Today E55.9 - Vitamin D deficiency, unspecified Lipid Panel Today Z00.00 - Encounter for general adult medical examination without abnormal findings Microalbumin, Random (w Creat) Today I10 - Essential (primary) hypertension TSH reflex Free T4 Today Z00.00 - Encounter for general adult medical examination without abnormal findings UA CC w/rflx Micro + Cult Today Z00.00 - Encounter for general adult medical examination without abnormal findings Prostate Specific Antigen Scr Today Z12.5 - Encounter for screening for malignant neoplasm of prostate AMB Hemoglobin A1c Today E11.9 - Type 2 diabetes mellitus without complications, R73.01 - Impaired fasting glucose
[2024-12-13 15:39] VITALS: BP 135/69; PULSE 84; RESP 13; TEMP 36.2; O2SAT 98
== END 2024-12-13 16:01 | disposition home or self-care (01) ==
LOC: HO.HMCFM 15:26
PROVIDERS: PCP Family Medicine; Visit Provider Family Medicine
DX: E11.9 Type 2 diabetes mellitus without complications (principal); S46.211A Strain of muscle, fascia and tendon of other parts of biceps, right arm, initial encounter; R73.01 Impaired fasting glucose

== ENCOUNTER → 2024-12-13 15:26 | Outpatient (BNVA) | payer OTHER, SELFPAY | PROVIDERS: PCP Family Medicine; Visit Provider Family Medicine | DX: E11.9 Type 2 diabetes mellitus without complications (principal); S46.211A Strain of muscle, fascia and tendon of other parts of biceps, right arm, initial encounter; X58.XXXA Exposure to other specified factors, initial encounter; Y93.9 Activity, unspecified; Y92.9 Unspecified place or not applicable; Y99.9 Unspecified external cause status | CPT/HCPCS: 83036 ==

== ENCOUNTER 2024-12-15 07:33 | Outpatient (REF) | payer OTHER, SELFPAY ==
--- OUTSIDE RECORDS SUMMARY | 2024-12-15 07:36 | XMS_ITS | Encounter Summary ---
Author Organization [facility] Address [address] [place] [address] Care Team Providers Care Legal Executive Assistant Name Role Phone Ankit Law MD Primary Care Provider [phone] Encounter Details Date Type Department Care Team ([facility] st Contact Info) Description 02/15/2024 Scanned Document [facility] PHYSICAL MEDICINE & REH[facility] [address] [place] [phone] Luz Peralta MA [address] [place] [address] [id number] Social History Tobacco Use Types Packs/Day Years Used Date Smoking Tobacco: Never Smokeless Tobacco: Never Alcohol Use Standard Drinks/Week Comments Yes 0 (1 standard drink = 0.6 oz pur e alcohol) [facility] [place] of Occupat ional Health - Occupational Stress [...] on filedocumented in this encounter Care Teams Legal Executive Assistant Relationship Specialty Start Date End Date Ankit Law MD [address] [place] [address] Dr [address] [id number] PCP - General Family Medicine 11/16/23 documented as of this encounter
--- OUTSIDE RECORDS SUMMARY | 2024-12-15 07:36 | XMS_ITS | Clinical Summary ---
Author Organization [facility] Address [address] [place] [address] Care Team Providers Care Cigar Head Holer Name Role Phone Ankit Law MD Primary Care Provider [phone] Allergies Active Allergy Reactions Criticality Noted Date [...] (two) times a day. Active Cannabis (MARIJUANA) [facility] Strength Inhale. Active Active Problems [...] drink = 0.6 oz pur e alcohol) [facility] [place] of Occupat ional Health - Occupational Stress [...] Vaccine (1 of 2) 2010 Influenza Vaccine 10/05/2024 COVID-19 Vaccine ( - 2023-2 5 season) 2024 RSV Vaccine 60 years and old er and Patients (1 - 1-dose 75+ series) 2035 Hepatitis B Vaccines Aged Out No long er eligible based on patient's age to complete this topic Insurance [employer] Care Teams Cigar Head Holer Relationship Specialty Start Date End Date Ankit Law MD [address] [place] [address] [place] [phone] PCP - General Family Medicine 11/16/23
--- OUTSIDE RECORDS SUMMARY | 2024-12-15 07:36 | XMS_ITS ---
Author Name [facility] Organization Unknown History of Medication Use Medication Directions Dispensed Refills Start Date End Date Stat us PANTOprazole (PROTONIX) 40 MG EC tablet Take 1 tablet (40 mg total) by mouth every morning. 11/01/2023 active amoxicillin 500 mg capsule TAKE 1 CAPSULE BY MOUTH 3 TIMES A DAY UNTIL FINISHED *TAKE A PROBIOTIC* active amoxicillin 875 mg-potassium clavulanate 125 mg tablet TAKE 1 TABLET BY MOUTH EVERY 12 HOURS FOR 7 DAYS active chlorhexidine gluconate 0.12 % mouthwash RINSE WITH 1/2 OUNCE (15 MLS) TWICE A DAY, SPIT OUT, DO NOT SWALLOW active Gavilax 17 gram/dose oral powder TAKE 17 GRAMS BY MOUTH EVERY DAY active hydrocodone 5 mg-acetaminophen 325 mg tablet TAKE 1 TABLET EVERY 6 TO 8 HOURS NEEDED FOR PAIN active ibuprofen 600 mg tablet TAKE 1 TABLET EVERY 6 HOURS WITH FOOD DURING WAKING HOURS, NO MORE THAN 4 TABS/DAY active magnesium active oxycodone 5 mg tablet TAKE 1 TABLET BY MOUTH EVERY 6 HOURS NEEDED FOR PAIN FOR 3 DAYS active pantoprazole 40 mg tablet,delayed release TAKE 1 TABLET BY MOUTH EVERY MORNING active senna 8.6 mg tablet TAKE 2 TABLETS BY MOUTH BEDTIME FOR CONSTIPATION active Cannabis (MARIJUANA) [facility] Strength Inhale. act suki Cetirizine HCl (ZyrTEC) 10 MG Cap Take 1 tablet by mouth. active saccharomyces boulardii (FLORASTOR) 250 MG capsule Take 1 capsule (250 mg total) by mouth 2 (two) times a day. active zinc gluconate 50 MG tablet Take 1 tablet (50 mg total) by mouth daily. active Allergies Allergen Reaction Severity Comment Documented Date Source Statu s WATERMELON ANAPHYLAXIS 12/16/2023 CCT active MELOXICAM OTHER (SEE COMMENTS) States question passed out or seizure unsure 04/04/2014 CCT active HYDROMORPHONE OTHER (SEE COMMENTS) Seizure like activity, sweats [facility] NUTS ANAPHYLAXIS [facility] PEACHES ANAPHYLAXIS [facility] PLUMS ANAPHYLAXIS [facility] Problems Problem Status Onset Date Problem Type Date of Resoluti on Source Accident while engaged in work-related activity active 2024-08-01 ProblemAct [facility] Injury of tendon of biceps brachii active 2024-07-10 ProblemAct [facility] Neck pain active 2024-07-[address] Problem[address] [facility] Partial thickness rotator cuff tear active 2024-10-23 ProblemAct [facility] Pain of right shoulder joint active 2024-07-15 ProblemAct [facility] Right cervical root neuropathy active 2024-08-01 ProblemAct [facility] Atrophy of muscle of right upper arm active 2024-10-22 ProblemAct [facility] S/P cervical spinal fusion active 2023-12-16 ProblemAct [facility] Bilateral carpal tunnel syndrome active 2024-03-15 ProblemAct [facility] Neck pain active 2023-12-16 ProblemAct [facility] Numbness and tingling of both upper extremities active 2023-12-16 ProblemAct [facility] Encounters Encounter Type Encounter Reason Primary Diagnosis Location Date Ambulatory [facility] [place] 11/20/2024 Ambulatory [facility] [place] 10/22/2024 Ambulatory [facility] [place] [facility]/22[facility] [place] 09[facility]26/2024 Ambulatory [facility] [place] 09[facility]20/2024 Ambulatory [facility] [place] 07/17/2024 Ambulatory [facility] [place] 07/16/2024 Ambulatory [facility] [place] 07/12/2024 Ambulatory [facility] [place] 07[facility]12/2024 Ambulatory [facility] [place] 07/12/2024 Ambulatory [facility] [place] 07/10/2024 Ambulatory [facility] [place] 07/10/2024 Ambulatory [facility] [place] 07/10/2024 Ambulatory [facility] [place] 07/05/2024 Ambulatory Anesthesia of skin Anesthesia of skin [facility] 03/15/2024 Ambulatory Arthrodesis status Arthrodesis status [facility] 02/15/2024 Amb[facility] Care Team Organization Name Specialty Phone Email Start Date End [facility] 10/22/2024 [facility] Primary [facility] 12/18/2023 05/23/2024 [facility] LYLA LOVELACE Primary Care 11/16/2023
--- OUTSIDE RECORDS SUMMARY | 2024-12-15 07:36 | XMS_ITS | Encounter Summary ---
Author Organization [facility] Address [address] [place] [address] Care Team Providers Care Rn Bariatric Name Role Phone Ankit Law MD Primary Care Provider [phone] Encounter Details Date Type Department Care Team ([facility] st Contact Info) Description 02/15/2024 Scanned Document [facility] PHYSICAL MEDICINE & REHAB [facility] [address] [place] [phone] Luz Peralta MA [address] [place] [address] [phone] Social History Tobacco Use Types Packs/Day Years Used Date Smoking Tobacco: Never Smokeless Tobacco: Never Alcohol Use Standard Drinks/Week Comments Yes 0 (1 standard drink = 0.6 oz pur e alcohol) [facility] [place] of Occupat ional Health - Occupational Stress [...] on filedocumented in this encounter Care Teams Rn Bariatric Relationship Specialty Start Date End Date Ankit Law MD [address] [place] [address] Dr [address]ior [address] [phone] PCP - General Family Medicine 11/16/23 documented as of this encounter
--- OUTSIDE RECORDS SUMMARY | 2024-12-15 07:36 | XMS_ITS | Data Portability ---
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 He is status post a C4-[address] Meneses. On June 19, 2024 he was injured at work. He carpal tunnel syndrome was not related to his work injury. He apparently also has a biceps tendon injury. Today he relates that the pain radiates from his shoulder into his arm towards the elbow but not past the elbow. He also notes pain rating up into his head. He was treated with physical therapy including traction which dramatically worsened his pain to the point that he even developed a right sided frontal headache. He has been unable to return to work. His examination is significant for right shoulder impingement. It is unclear whether his pain is related to his cervical spine or his shoulder. He may be a combination. Remains TTD. Will obtain an MRI of the cervical spine. He will return after the scan. 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 Meneses returns for continued management of his headaches cervical spondylosis and right upper extremity pain. His last visit he was referred for an MRI which revealed multilevel foraminal stenosis. His symptoms are unchanged. He has headache. He notes atrophy in his right brachium with discomfort radiating down his right arm. On physical examination he in fact has atrophy in of the short head of the biceps. He relates that he saw Dr. Palafox who felt that he had a trapezius strain. Cervical MRI/[facility]/October 15, 2024: Varying degrees of cervical foraminal stenosis rated as bilateral moderate at C4-5 at C5-6 there is moderate bilateral foraminal narrowing. I believe his muscle atrophy cervical spondylosis and foraminal stenosis explaining his symptoms. He will likely be a surgical candidate due to his documentable muscle atrophy. He remains totally temporary disabled. He is referred for an EMG to assess for radiculopathy. Apparently had 1 in January which he recalls was unremarkable but this was prior to his most recent injury and prior to his self perceived muscle atrophy. Will follow-up in 1 month. Remains fully disabled until he returns in 1 month. [id number] October 23, 2024: After the patient left the office we obtained his EMG report dated February 15, 2024. This was performed by at [facility] physical medicine rehabilitation. He concluded the patient had bilateral moderate to severe carpal tunnel syndrome. Not available 10/23/2024 09:28:52 10/23/2024 10/23/2024 Stable right shoulder pain in the setting of a long head biceps tendon rupture, partial thickness rotator cuff tearing. At present we are going to manage his symptoms conservatively as he is undergoing workup for his cervical spine. Updated work note provided. If light duty work can be accommodated relative to the shoulder that would be fine. He is going to continue therapy and a home exercise program for the shoulder. Follow-up in 4 to 5 weeks for ongoing longitudinal follow-up. Questions invited and answered. PRIOR: I went over my findings with him and his . We looked at the shoulder MRI together. Not surprisingly this does show a rupture of the long head of the biceps which is consistent with his clinical exam. There is also a partial insertional tear of the anterior supraspinatus and possible small upper border subscapularis tear, age-indeterminate . Mild degenerative changes in the joint along with labral degeneration. I again reviewed the natural history of long head biceps tendon ruptures, I continue to recommend nonoperative management. With regards to the partial insertional supraspinatus tear I recommend a trial of physical therapy. Prescription provided. I think at this point we need to rule out a concomitant cervical radicular pattern, he is having some neck pain, some burning pain down the triceps, also feels improved if he puts his hand on top of his head. He does have a history of cervical surgery. I recommend consultation with a pharmacy operations specialist. Certainly could have aggravated his neck as part of the work activities he described when he injured the shoulder. He is also likely going to move forward with carpal tunnel release next Tuesday on the right hand. Updated work note provided, if light duty work cannot be accommodated then he is out of work. PRIOR: Right shoulder and arm symptomatology that began [...] sooner if any concerns arise. Not available 10/29/2024 08:34:40 11/20/2024 11/20/2024 Improved right shoulder pain in the setting of a partial-thickness rotator cuff tear, long head biceps tendon rupture. His shoulder symptoms continue to improve. He is going to continue therapy/home exercises. He has a follow-up in the near future for his neck. Should he be cleared back to full duty work for his neck we can consider a full duty return relative to his shoulder as well. For the moment, however, he still has some restrictions relative to the right shoulder which I outlined on an updated work note. Recheck in 4 to 5 weeks, sooner if concerns arise. PRIOR: Stable right shoulder pain in the setting of a long head biceps tendon rupture, partial thickness rotator cuff tearing. At present we are going to manage his symptoms conservatively as he is undergoing workup for his cervical spine. Updated work note provided. If light duty work can be accommodated relative to the shoulder that would be fine. He is going to continue therapy and a home exercise program for the shoulder. Follow-up in 4 to 5 weeks for ongoing longitudinal follow-up. PRIOR: I went over my findings with him and his . We looked at the shoulder MRI together. Not surprisingly this does show a rupture of the long head of the biceps which is consistent with his clinical exam. There is also a partial insertional tear of the anterior supraspinatus and possible small upper border subscapularis tear, age-indeterminate . Mild degenerative changes in the joint along with labral degeneration. I again reviewed the natural history of long head biceps tendon ruptures, I continue to recommend nonoperative management. With regards to the partial insertional supraspinatus tear I recommend a trial of physical therapy. Prescription provided. I think at this point we need to rule out a concomitant cervical radicular pattern, he is having some neck pain, some burning pain down the triceps, also feels improved if he puts his hand on top of his head. He does have a history of cervical surgery. I recommend consultation with a pharmacy operations specialist. Certainly could have aggravated his neck as part of the work activities he described when he injured the shoulder. He is also likely going to move forward with carpal tunnel release next Tuesday on the right hand. Updated work note provided, if light duty work cannot be accommodated then he is out of work. PRIOR: Right shoulder and arm symptomatology that began [...] sooner if any concerns arise. Not available 11/20/2024 16:22:10 11/26/2024 11/26/2024 64-year-old injured worker returns with his for follow-up of his EMG. He is status post C4-5 ACDF by years ago. He notes some neck tingling particular if he overuses his neck and intermittent arm tingling none of which is disabling. He has some chronic hand tingling but is status post a carpal tunnel release. EMG/[place] [facility]/Dr. Lange/November 12, 2024: Right upper extremity show signs of moderate median neuropathy at the wrist which may be residual finding given his history of carpal tunnel syndrome now status post release. He still has varying degrees of discomfort he feels he is just about ready to return to full-time full duty work. We we will arrange for him to go back to his employment next week on December 03, 2024. He understands I am retiring. I will follow-up on an as-needed basis. Begin full-time full duty work on December 03, 2024. Not available 11/26/2024 14:33:55 Plan of Treatment Reminders Order Date Submit Date Provider Last Modified By Organization Details Last Modified Time Details Appointments WC FOLLOW-UP 2024 09:30A Kiana Altamirano MD Not available Not available Not available Lab None recorded. Referral neurologi st referral 2024 025 [email or web address] 70 [facility], [address], [place], [address], 11/12/2024 08:36:15 Procedures None recorded. Surgeries None recorded. Imaging MRI, cervical spine, w/o contrast - Right upper extremity pain 2024 025 [email or web address] Not available 10/16/2024 08:53:08 Medication Orders None recorded. Patient TargetsNo targets recorded. Patient Instructions Encounter Date Encounter Id Patient Instructions Last Modified By Organization Details Last Modified Time 10/01/2024 [id number] work status report* - Remain out of work until next visit in 1 month [email or web address] Not available 10/08/2024 08:56:40 10/22/2024 [id number] work status report* - Remain out of work until next visit in 1 month [email or web address] Not available 10/29/2024 08:12:10 10/23/2024 [id number] work status report* - Continue until next appointment in four weeks Work restrictions: no lift push or pull with right arm more than 5 pounds to chest level limit overhead use right shoulder no repetitive use right arm no climbing or crawling if light duty cannot be accommodated than he is out of work Comments: continue follow up cervical spine [email or web address] Not available 10/23/2024 13:42:40 I independently reviewed his right shoulder MRI performed without contrast at [facility] on 07/12/2024. The radiologist commented on diffuse labral degeneration. Moderate supraspinatus tendinopathy with high-grade tear at the anterior supraspinatus footprint. Torn and retracted long head biceps. Subscapularis tendinopathy with intermediate grade undersurface tear at the insertion. Moderate supraspinatus tendinopathy. Mild degenerative changes of the glenohumeral and AC joints. Mild subacromial bursitis. 3 views of the right shoulder were obtained on 07/10/2024 in the [facility] office. Glenohumeral joint space intact. Acromiohumeral interval intact. There is some nonspecific cystic changes around the greater tuberosity. Moderate degenerative changes at the AC joint. Type II acromion. Findings: Well-maintained glenohumeral joint space right shoulder. No acute fracture appreciated. Interpreted by: Phillip Altamirano MD Not available 10/29/2024 08:35:55 11/20/2024 [id number] work status report* - Continue until next appointment in four weeks Work restrictions: no lift push or pull with right arm more than 10 pounds to chest level limit overhead use right shoulder no repetitive use right arm no climbing or crawling if light duty cannot be accommodated than he is out of work. Reminder that Dr. Christian is also writing him a work note related to his neck. Comments: continue follow up cervical spine to follow up after EMG [email or web address] Not available 11/20/2024 09:13:09 I independently reviewed his right shoulder MRI performed without contrast at [facility] on 07/12/2024. The radiologist commented on diffuse labral degeneration. Moderate supraspinatus tendinopathy with high-grade tear at the anterior supraspinatus footprint. Torn and retracted long head biceps. Subscapularis tendinopathy with intermediate grade undersurface tear at the insertion. Moderate supraspinatus tendinopathy. Mild degenerative changes of the glenohumeral and AC joints. Mild subacromial bursitis. 3 views of the right shoulder were obtained on 07/10/2024 in the [facility] office. Glenohumeral joint space intact. Acromiohumeral interval intact. There is some nonspecific cystic changes around the greater tuberosity. Moderate degenerative changes at the AC joint. Type II acromion. Findings: Well-maintained glenohumeral joint space right shoulder. No acute fracture appreciated. Interpreted by: Phillip Altamirano MD Not available 11/20/2024 06:12:50 11/26/2024 [id number] work status report* - Begin full-time full duty work on December 03, 2024. [email or web address] Not available 12/03/2024 08:21:40 Reason for Referral Neurologist Referral for Atr ophy of muscle of right upper arm Referring Physician: Rajiv Crhistian, Orthopedic Surgery, Encounter Date: 10/22/2024 Results Created Date Observation Date Name Description Value Unit Range Abnormal Flag Note LastModifiedBy Organization Detail LastModifiedTime 10/16/1910/15/2024 MRI, cervi margo spine , w/o contr ast No observ ation record ed. [email or web address] [facility] ([facility]) [address], [place], [address], 10/16/2024 08:53:29 10/18/19 25 10/15/2024 MRI, cervi margo spine , w/o contr ast No observ ation record ed. [email or web address] Not Available 10/18 08:50:52 11/16/19 25 11/12/2024 elect romyo gram + nerve condu ction study No observ ation record ed. [email or web address] [facility] [address], [place], [address], 11/15/2024 15:40:19 Result Notes None recorded. Problems Name Problem SNOMED Code Status Onset Date Resolution Date Notes Provider Name and Address Organization Details Recorded Time Injury of tendon of biceps brachii 992257632 Active [address], [place], [address], [place] [facility] 5 09:08:38 Pain of right shoulder joint 3218411322057 9100 Active [address], [place], [address], [place] [facility] 5 17:42:31 Neck pain 90853124 Active [address], [place], [address], [place] [facility] 5 13:41:41 Right cervical root neuropathy 1470720559567 9108 Active [address], [place], [address], [place] [facility] 5 13:31:21 Accident while engaged in work-relate d activity Active [address], [place], [address], [place] [facility] 5 15:05:05 Atrophy of muscle of right upper arm 6955512494303 09 Active [address], [place], [address], [place] [facility] 5 09:01:01 Partial thickness rotator cuff tear 251624252 Active 2024 Phillip Altamirano MD [address], [place], [address], [facility] 06:42:54 Problem Notes None recorded. Procedures Surgical History Date Name Laterality Status Provider Name and Address Organization Details Recorded Time Knee Surgery completed Ana Maria Hamilton [facility], P 07/10/2024 09:16:46 Imaging Results None recorded. Procedure Notes None recorded. Medical Equipment None Reported. Allergies Allergen ID Allergen Name Allergen Category Reaction Reaction Severity Criticality Documentation Date Start Date Code Code System Note Provider Name and Address Organization Details Recorded Time 13470 nut - unspecifi ed food Not available Not available Not available 07/10/2024 Ana Maria Hamilton [place], [facility], P 09:15:02 Medications Name Sig Start Date Stop Date Status Note LastModified by Organization Details LastModified Time amoxicillin 500 mg capsule TAKE 1 CAPSULE BY MOUTH 3 TIMES A DAY UNTIL FINISHED *TAKE A PROBIOTIC * 07/16 completed Not Available Not Available Not Available hydrocodone 5 mg-acetamin ophen 325 mg tablet TAKE 1 TABLET ORALLY EVERY 6 HOURS NEEDED FOR PAIN 10/23 completed Not Available Not Available Not Available senna 8.6 mg tablet TAKE 2 TABLETS BY MOUTH BEDTIME FOR CONSTIPAT ION active Not Available Not Available No t Available pantoprazol e 40 mg tablet,moises yed release TAKE 1 TABLET BY MOUTH EVERY MORNING active Not Available Not Available No t Available ibuprofen 600 mg tablet TAKE 1 TABLET EVERY 6 HOURS WITH FOOD DURING WAKING HOURS, NO MORE THAN 4 TABS/DAY active Not Available Not Available No t Available amoxicillin 875 mg-potassiu m clavulanate 125 mg tablet TAKE 1 TABLET BY MOUTH EVERY 12 HOURS FOR 14 DAYS active Not Available Not Available No t Available oxycodone 5 mg tablet TAKE 1 TABLET BY MOUTH EVERY 6 HOURS NEEDED FOR PAIN FOR 3 DAYS 07/16 completed Not Available Not Available Not Available chlorhexidi ne gluconate 0.12 % mouthwash RINSE WITH 1/2 OUNCE (15 MLS) TWICE A DAY, SPIT OUT, DO NOT SWALLOW 07/16 completed Not Available Not Available Not Available magnesium active Not Available Not Kirsty ilable Not Available Zyrtec active Not Available Not Availa ble Not Available Gavilax 17 gram/dose oral powder TAKE 17 GRAMS BY MOUTH EVERY DAY active Not Available Not Available No t Available Multi Vitamin active Not Available Not Available Not Available Vitals Date Recorded Body height Body mass index (BMI) Body weight Provider Name and Address Organization Details Last Updated DateTime 10/01/2024 175.26 cm 27.2 kg/m2 [address] [place] [facility] 10/01/2024 09:57:29 Date Recorded Body height Provider Name an d Address Organization Details Last Updated DateTime 10/22/2024 175.[address] [place] [facility] 10/22/2024 08:59:36 Date Recorded Body height Body mass index (BMI) Body weight Provider Name and Address Organization Details Last Updated DateTime 10/23/2024 175.26 cm 27 kg/m2 [address]34.[address] [place] [facility] 10/23/2024 13:31:33 Date Recorded Body height Body mass index (BMI) Body weight Provider Name and Address Organization Details Last Updated DateTime 11/20/2024 175.26 cm 27.2 kg/m2 [address] [place] [facility] 11/20/2024 09:01:36 Date Recorded Body height Body mass index (BMI) Body weight Provider Name and Address Organization Details Last Updated DateTime 11/26/2024 175.26 cm 27.2 kg/m2 [address] [place] [facility] 11/26/2024 13:51:56 Social History None recorded. Functional Status Question Answer Note LastModified by Organizat ion Details LastModified Time How many times per week do you consume alcohol? 1-2 times per week Information not available 07/10/2024 Do you use any illicit or recreational drugs? No [email or web address] Information not available 07/10/2024 Do you or have you ever used any other forms of tobacco or nicotine? No [email or web address] Information not available 07/10/2024 What is your level of alcohol consumption? Occasional [email or web address] Information not available 07/10/2024 Are you currently employed? 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 Family History Relationship Description Onset Age of this Age Resolved Age Notes LastModified by Organization Details LastModified Time Mother History of cancer of unknown primary site [email or web address] Not available 08/2024 09:16:07 Sister History of cancer of unknown primary site [email or web address] Not available 08/2024 09:16:15 Medical History Condition Response Coronary Artery Disease N Gout Y Hyperthyroidism N Blood Transfusion N MRSA N Emphysema N Depression Y COPD N Hypothyroidism N Pacemaker N Vascular Disease N Gastrointestinal Disease Y Anxiety Disorder N Autoimmune disease N Arthritis Y Cancer N Stroke N High Cholesterol N Neurologic Disorder N Liver Disease N Organ Transplant N Arrhythmia N Rheumatoid Arthritis Y Fibromyalgia N Kidney Disease N Allergies/Hayfever Y Adverse Reaction to Anesthesia N Thyroid Problems N Anemia N Brain Injury N Heart Attack ([place]) N Osteopenia N Diabetes Y Bleeding Disorder N Seizures/Epilepsy N AIDS/HIV N Congestive Heart Failure (CHF) N Asthma N Amputation N Reflux/GERD Y Sleep Apnea N Hepatitis N Aneurysm N Heart Disease N Pulmonary Embolism N Hypertension N Osteoporosis N Past Encounters Encounter ID Performer Location Encounter Start Date Encounter Closed Date Diagnosis/Indication Diagnosis SNOMED-CT Code Diagnosis ICD10 Code Diagnosis IMO Codes Diagnosis Note [id number] Phillip Altamirano MD [address] [address] 07/10/2024 08:28:59 07/10/2024 09:13:34 Pain of right shoulder joint 8862952529 1160583 M25.511 724513 Injury of tendon of biceps brachii 627520507 S46.219A [id number] Phillip Altamirano MD [address] [place] [address] 07/16/2024 13:13:08 07/16/2024 14:04:59 Pain of right shoulder joint 8570309398 1553562 M25.511 653363 Injury of tendon of biceps brachii 484223401 S46.219A 235001 Neck pain 02300537 M54.2 25484286 Partial th ickness rotator cuff tear 406191674 M75.111 [id number] MD CHRISTINE Xiong [address] [facility] [place] [address] 08/01/2024 13:16:35 08/01/2024 14:11:05 Neck pain 24258229 M54.2 644824 Right cerv ical root neuropathy 4626584444 8824688 M54.12 41538518 Accident w tejinder engaged in work-related activity 29607087 Y99.0 [id number] [place] [address] 09/03/2024 15:14:43 09/03/2024 15:47:23 Accident while engaged in work-related activity 77983603 Y99.0 264772 Totally temporaril y disabled x 1 month Right cerv ical root neuropathy 4941123313 3892782 M54.12 33843365 Neck pain 76584167 M54.2 [id number] MD TEZ X[address] [address] 10/01/2024 09:53:02 10/01/2024 10:04:25 Neck pain 87271070 M54.2 45006871 Accident w tracye engaged in work-related activity 22655501 Y99.0 520092 Totally temporaril y disabled x 1 month [id number] MD TEZ Xion[address] [address] 10/22/2024 08:48:15 10/22/2024 09:04:18 Neck pain 25462928 M54.2 53035876 Accident w tracye engaged in work-related activity 93386933 Y99.0 165405 Totally temporaril y disabled x 1 month Pain of ri ght shoulder joint 9051075715 0305151 M25.511 580347 Right cerv ical root neuropathy 8964817347 0538148 M54.12 45393843 Atrophy of muscle of right upper arm 2215806054 43704 M62.521 [id number] MD TEZ [address] [address] 10/23/2024 13:26:46 10/23/2024 13:44:34 Pain of right shoulder joint 2263316019 5793826 M25.511 710446 Injury of tendon of biceps brachii 415665177 S46.219A 617386 Neck pain 63625817 M54.2 52264172 Partial th ickness rotator cuff tear 583690818 M75.111 [id number] Phillip Altamirano MD [address] [address] 11/20/2024 08:53:20 11/20/2024 09:16:20 Pain of right shoulder joint 4178826794 1274411 M25.511 082848 Injury of tendon of biceps brachii 616737399 S46.219A 147104 Neck pain 22790523 M54.2 16357319 Partial th ickness rotator cuff tear 338709789 M75.111 [id number] Rajiv Christian MD [address] [address] 11/26/2024 13:29:52 11/26/2024 14:07:02 Accident while engaged in work-related activity 05616170 Y99.0 772681 Totally temporaril y disabled x 1 month Right cerv ical root neuropathy 7533699080 3316847 M54.12 23233828 Health Concerns Section Related Observation LastModified by Organization Detai ls LastModified Time None Recorded Concern Status LastModified by Organization Details LastModified Time None Recorded Advance Directives Directive None Recorded Payers Insurance Date Sequence Insurance Name Policy Number Policy Blackmon Covered Member ID Blackmon Member ID Guarantor Name 10/30/2024 [facility] [id number] [facility] [employer] Anirudh Anderson Notes Date Note Type Note Provider Name and Address Organization Details Recorded Time 10/23/2024 text/html ROS as noted in the HPI Patient returns for reevaluation of his right shoulder. He has in therapy twice a week. He is currently being worked up by the spine team for ongoing neck pain as well as headaches. The shoulder symptoms seem to be relatively stable. He rates his pain today as a 3 to a 4 on a 10 point scale. He is not currently working as Dr. Christian as written him out. PRIOR:Patient returns for reevaluation of his right shoulder and arm. He feels his symptoms are perhaps slightly worse. He still notes some burning down the posterior arm towards the elbow. He is having some right sided paracervical discomfort. He notes if he puts his hand on top of his head he does derive some relief. He is having some mild biceps cramping and discomfort. He did have his right shoulder MRI done and brings that in today for review.PRIOR:64-yea r-old male here for an evaluation of acute right shoulder and arm pain that started on 06/19/2024. He tells me he was out in [place] performing some work. He was on a [...] using a scissor lift. He cannot recall one specific injury. He developed pain in the [...] on his right side on 07/23/2024 in [place]. 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 History of prednisone use. 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 Non-smoker. Phillip Altamirano MD [address], [place], [id number], [place] [facility] 10/29/2024 08:35:58 11/20/2024 text/html ROS as noted in the HPI Patient returns for reevaluation of his right shoulder. Overall the shoulder is about the same. He feels he has regained motion and reasonable strength in the shoulder. He continues to deal with neck and paracervical/trapez ial pain. He did have an EMG test recently, he states he was doing a bit better with regards to his neck before the test, but after the test it reactivated headaches and neck pain. He is not currently working as Dr. Christian has him written out of work. He currently continues physical therapy at [facility] in [place]. PRIOR:Patient returns for reevaluation of his right shoulder. He has in therapy twice a week. He is currently being worked up by the spine team for ongoing neck pain as well as headaches. The shoulder symptoms seem to be relatively stable. He rates his pain today as a 3 to a 4 on a 10 point scale. He is not currently working as Dr. Christian as written him out.PRIOR:Patient returns for reevaluation of his right shoulder and arm. He feels his symptoms are perhaps slightly worse. He still notes some burning down the posterior arm towards the elbow. He is having some right sided paracervical discomfort. He notes if he puts his hand on top of his head he does derive some relief. He is having some mild biceps cramping and discomfort. He did have his right shoulder MRI done and brings that in today for review.PRIOR:64-yea r-old male here for an evaluation of acute right shoulder and arm pain that started on 06/19/2024. He tells me he was out in [place] performing some work. He was on a [...] using a scissor lift. He cannot recall one specific injury. He developed pain in the [...] on his right side on 07/23/2024 in [place]. 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 History of prednisone use. 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 Non-smoker. Phillip Altamirano MD [address], [place], [address], [place] [facility] 11/20/2024 16:22:19
--- OUTSIDE RECORDS SUMMARY | 2024-12-15 07:36 | XMS_ITS | Encounter Summary ---
Author Organization [facility] Address [address] [place] [address] Care Team Providers Care Bagger And Stock Handler Helper Name Role Phone Ankit Law MD Primary Care Provider [phone] Encounter Details Date Type Department Care Team ([facility] st Contact Info) Description 02/15/2024 Scanned Document [facility] PHYSICAL MEDICINE & REHAB [facility] [address] [place] [phone] Luz Peralta MA [address] [place] [id number] Social History Tobacco Use Types Packs/Day Years Used Date Smoking Tobacco: Never Smokeless Tobacco: Never Alcohol Use Standard Drinks/Week Comments Yes 0 (1 standard drink = 0.6 oz pur e alcohol) [facility] [place] of Occupat ional Health - Occupational Stress [...] on filedocumented in this encounter Care Teams Bagger And Stock Handler Helper Relationship Specialty Start Date End Date Ankit Law MD [address] [place] [address] Dr Dior [address] [place] [address] PCP - General Family Medicine 11/16/23 documented as of this encounter
--- OUTSIDE RECORDS SUMMARY | 2024-12-15 07:36 | XMS_ITS | Clinical Summary ---
Author Organization [facility] Address [address] [facility] [address] [place] [id number] Phone Care Team Providers Care Sign Painter Helper Name Role Phone Pcp, Unknown Primary Care Provider Unavailabl e Medications pantoprazole (PROTONIX) 40 MG tablet Take 40 mg by mouth every morning. 08/02/2024 Active Active Problems No known active problems Encounters Date Type Department Care Team Description 09/21/2024 9:50 AM EDT Office Visit [facility] at [address] [address] Sharon Arvizu CNP Chest pain, unspecified type (Primary Dx) from Last 3 Months Social History Tobacco Use Types Packs/Day Years Used Date Smoking Tobacco: Never Assessed Education Answer Date Recorded Are you interested in more education? Not on mckenzie e 09/21/2024 Are you concerned about learning? Not on file 09/21/2024 No 09/21/2024 No 09/21/2024 Digital Access Answer Date Recorded No 09/21/2024 No 09/21/2024 Reliable internet access at home? Not on file 09/21/2024 Device with a working camera? Not on file Sex and Gender Information Value Date Recorded Sex Assigned at Not on file Legal Sex Male 9:41 AM EDT Gender Identity Not on file Sexual Orientation Not on file Plan of Treatment Health Maintenance Due Date Last Done Comments Adult Td,Tdap Booster 1960 LIPID PANEL 1960 DEPRESSION SCREENING 1972 SMOKING Hx and SMOKELESS TOB ACCO SCREENING 1973 HEPATITIS C SCREENING 1978 HIV ONE-TIME SCREENING (18-6 5 YEARS) 1978 COLOGUARD 2005 COLONOSCOPY 2005 COLORECTAL CANCER SCREENING 2005 FIT TEST 2005 FOBT 2005 SIGMOIDOSCOPY 2005 VIRTUAL COLONOSCOPY 2005 PNEUMOCOCCAL VACCINES (50+ y ears) (1 of 1 - PCV) 2010 ZOSTER VACCINES (1 of 2) 2010 INFLUENZA VACCINE (#1) 2024 COVID-19 VACCINE (1 - 2024-2 6 season) 2024 RSV VACCINE (1 - 1-dose 75+ series) 2035 HEPATITIS A VACCINES Aged Out No long er eligible based on patient's age to complete this topic HIB VACCINES Aged Out No longer eligi ble based on patient's age to complete this topic MENINGOCOCCAL VACCINES (ACWY) Aged Out No longer eligible based on patient's age to complete this topic MENINGOCOCCAL VACCINES (B) Aged Out N o longer eligible based on patient's age to complete this topic Medical Devices Not on file Insurance [employer] EPO [employer] [facility] E[facility] Care Teams Sign Painter Helper Relationship Specialty Start Date End Date Pcp, Unknown PCP - General 09/21/24 Additional Source Comments The information contained in this document represents components of the legal health record. It is not the complete legal health record.[facility]
--- OUTSIDE RECORDS SUMMARY | 2024-12-15 07:37 | XMS_ITS | Encounter Summary ---
Author Organization [facility] Address [address] [place] [address] Care Team Providers Care Diesel Dinkey Operator Name Role Phone Ankit Law MD Primary Care Provider [phone] [phone] Encounter Details Date Type Department Care Team (Late st Contact Info) Description 01/12/2024 Scanned Document [facility] PHYSICAL MEDICINE & REHAB [facility] [address] [place] [phone] Richard Zavala MA [address] [place] [id number] Social History Tobacco Use Types Packs/Day Years Used Date Smoking Tobacco: Never Smokeless Tobacco: Never Alcohol Use Standard Drinks/Week Comments Yes 0 (1 standard drink = 0.6 oz pur e alcohol) [facility] [place] of Occupat ional Health - Occupational Stress [...] on filedocumented in this encounter Care Teams Diesel Dinkey Operator Relationship Specialty Start Date End Date Ankit Law MD [address] [place] [address] Dr Dior [facility] [place], [place] [address] PCP - General Family Medicine 11/16/23 documented as of this encounter
[2024-12-15 07:56] LABS: MANUAL DIFF FLAG NO
[2024-12-15 08:11] LABS: Hematocrit 43.5 % (42.0-52.0); Hemoglobin 14.4 g/dl (14.0-18.0); Imm Gran Abs Auto 0.01 X10*3/uL (0.00-0.03); Imm Gran Pct Auto 0.2 % (0.0-0.4); Lymphocytes Absolute Auto 1.4 X10*3/uL (1.2-4.9); Mean Corpuscular HGB Conc 33.1 g/dl (31.0-36.0); Mean Corpuscular Hemoglobin 29.0 pg (27.0-33.0); Mean Corpuscular Volume 87.5 fL (80.0-98.0); NRBC Abs Auto 0.000 X10*3/uL (0.0-0.012); NRBC Pct Auto 0.0 /100WBC (0.0-0.2); Platelet Count 193 X10*3/uL (160-400); Red Blood Count 4.97 X10*6/uL (4.60-5.80); White Blood Count 4.3 X10*3/uL (4.8-10.8)
[2024-12-15 08:43] LABS: Appearance Urine Clear; Glucose Urine UA Negative (Negative); PH 6.0 (5.0-9.0); Specific Gravity - Urine <= 1.005 (1.005-1.025)
[2024-12-15 09:10] LABS: Alanine Aminotransferase 45 U/L (0-40); Albumin Level 4.7 g/dL (3.5-5.0); Alkaline Phosphatase 70 U/L (39-117); Anion Gap 9 (12-20); Aspartate Amino Transferase 38 U/L (5-37); Blood Urea Nitrogen 20 mg/dL (9-16); Calcium 9.0 mg/dL (8.4-10.2); Carbon Dioxide 27 mmol/L (22-29); Chloride 107 mmol/L (96-108); Cholesterol 144 mg/dL (<200); Estimated Glomerular Filt Rate > 60; HDL Cholesterol 34 mg/dL (>40); Potassium 4.2 mmol/L (3.3-5.1); Sodium 139 mmol/L (135-145); Total Protein 7.1 g/dL (6.5-8.0); Triglycerides 81 mg/dL (<150)
== END 2024-12-15 07:34 | disposition home or self-care (01) ==
LOC: HO.LAB 07:33
PROVIDERS: PCP Family Medicine; Visit Provider Family Medicine
DX: Z00.00 Encounter for general adult medical examination without abnormal findings (principal); Z12.5 Encounter for screening for malignant neoplasm of prostate; E55.9 Vitamin D deficiency, unspecified; I10 Essential (primary) hypertension
CPT/HCPCS: 36415; 80053; 80061; 81003; 82043; 82306; 82570; 84153; 84443; 85025

== ENCOUNTER 2024-12-20 09:51 | Outpatient (AMB) | payer OTHER, SELFPAY ==
--- NOTE | 2024-12-20 09:48 | A.OFFPC_ITS ---
Intake Visit Reasons: Paperwork Intake Note: Lab results. dropped paperwork off at visit last week. Labs needed to be completed to finish paperwork. Registered Public Health Nurse Required: No Allergies coconut Allergy (Severe, Verified 12/20/24 09:50) SWELLING tree nut (Tree Nut) Allergy (Severe, Verified 12/20/24 09:50) SWELLING FRUIT NUTS Allergy (Uncoded 12/20/24 09:50) Swelling Tobacco use date assessed: 12/13/24 Dental Screening Dental Screen Date: 12/13/24 HPI Paperwork HPI Details 64 y/o male presents to f/u labs, paperw ork. Labs drawn 12/15/24. Reviewed labs with pt. Elevated liver enzymes - AST 38, ALT 45. Triglycerides 81. TC 144. LDL 94. HDL low at 34. PFSH Medical History COVID-19 Diabetes Celiac disease Surgical History Hx of hand surgery H/O rotator cuff surgery H/O cervical discectomy History of total right knee replacement Family History Other Alcohol abuse Drug abuse Social History Housing: House Alcohol intake: current Patient Tobacco Use Status: Former Tobacco user e-Cigarette/Vaping Use: Never Used service: Yes Current occupational status: unemployed Cognitive needs: No Hearing needs: No Vision needs: No Questionnaire Thrive Questionnaire Date Thrive assessed: 03/09/24 LAYO-7 AMB Questionnaire LAYO-7 Date LAYO - 7 assessed: 02/25/23 Source: Developed by Drs. Jose Faulkner, Marjorie Gonzalez, Luis Felipe Palacios and colleagues, with an educational juanpablo from [employer]. Review of Systems Const Denies chills, Denies fatigue, Denies fever(s), Denies headache(s) and Denies weakness ENT Denies dizziness and Denies headache(s) Card Denies dyspnea Resp Denies cough, Denies dyspnea, Denies wheezing and Denies other (shortness of breath) Musc Denies numbness and Denies tingling Neuro Denies dizziness, Denies headache(s), Denies numbness, Denies tingling and Denies weakness Psych Denies anxiety and Denies depression Endo Denies fatigue Aller/Immun Denies wheezing Physical exam (Primary Care) Tobacco/Smoking Status: Tobacco use Status Tobacco use date assessed 12/13/24 12/20/24 09:50 Patient Tobacco Use Status Former Tobacco user 12/20/24 09:50 e-Cigarette/Vaping Use Never Used 12/20/24 09:50 Thrive Assessment: Date of Thrive Assessment Date Thrive assessed 03/09/24 12/20/24 09:50 Telehealth Telehealth Telehealth Platform: Telephone Location of provider rendering services: practice address Location of patient: address on file Patient Identification confirmed using: Name, : No Telehealth method: voice only Patient verbally consented to treatment: Yes Patient verbally consented to billing insurance company: Yes Patient informed of any privacy concerns related to visit: Yes Minutes spent on Phone/Video with Pt.: 10 Coding Level of Care Code Tele Est Pt Level 2 (30649) Diagnoses Elevated liver enzymes R74.8 Low HDL (under 40) E78.6 Assessment & Plan Assessment & Plan (1) Elevated liver enzymes: Code(s): R74.8 - Abnormal levels of other serum enzymes Category: Medical Plan: Mildly elevated liver enzymes. Patient says that he has been told he has fatty liver disorder, in the past Encouraged weight loss, good hydration and we will recheck liver enzymes in a few months (2) Low HDL (under 40): Code(s): E78.6 - Lipoprotein deficiency Category: Medical Plan: LDL cholesterol has been low Continue exercise and work on a diet higher in [place] 3 fatty acids Will continue to monitor Orders: Orders Lipid Panel Today E78.6 - Lipoprotein deficiency, Z00.00 - Encounter for general adult medical examination without abnormal findings Comprehensive [place]. Panel Fast Today Z00.00 - Encounter for general adult med ical examination without abnormal findings
--- OUTSIDE RECORDS SUMMARY | 2024-12-20 11:31 | XMS_ITS | Clinical Summary ---
Author Organization [facility] Address [address] [place] [address] Care Team Providers Care Cardiac Exercise Specialist Name Role Phone Ankit Law MD Primary Care Provider [phone] Allergies Active Allergy Reactions Criticality Noted Date [...] (two) times a day. Active Cannabis (MARIJUANA) [facility] Prescription Strength Inhale. Active Active Problems [...] = 0.6 oz pur e alcohol) [facility] of Occupat ional Health - Occupational Stress [...] - 2023-2 5 season) 2024 RSV Vaccine 50 years and old er and Patients (1 - 1-dose 75+ series) 2035 Hepatitis B Vaccines Aged Out No long er eligible based on patient's age to complete this topic Insurance [employer] Care Teams Cardiac Exercise Specialist Relationship Specialty Start Date End Date Ankit Law MD [address] [place] [address] [place] [address] PCP - General Family Medicine 11/16/23
--- OUTSIDE RECORDS SUMMARY | 2024-12-20 11:31 | XMS_ITS | Data Portability ---
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 Cervical MRI/[facility]/October 15, 2024: Varying degrees of cervical foraminal [...] disabled until he returns in 1 month. [id number] October 23, 2024: After the patient left the office we obtained his EMG report dated February 15, 2024. This was performed by at [facility] physical medicine rehabilitation. He concluded the patient [...] cervical surgery. I recommend consultation with a online banking specialist. Certainly could have aggravated his neck [...] cervical surgery. I recommend consultation with a online banking specialist. Certainly could have aggravated his neck [...] is status post a carpal tunnel release. [facility]/Dr. Lange/November 12, 2024: Right upper extremity [...] Organization Details Last Modified Time Details Appointments None recorded. Lab None recorded. Referral neurologist referral 2024 025 [email or web address] [email or web address] [facility], [address] [facility] [address], [place], [address], 08:36:15 Procedures None recorded. Surgeries None recorded. Imaging MRI, cervical spine, w/o contrast - Right upper extremity pain 2024 025 [email or web address] Not available 08:53:08 Medication Orders None recorded. Patient TargetsNo targets recorded. Patient Instructions Encounter Date Encounter Id Patient Instructions Last Modified By Organization Details Last Modified Time 10/01/2024 [id number] work status report* - Remain out of work until next visit in 1 month [email or web address] Not available 10/08/2024 08:56:40 10/22/2024 [id number] work status report* - Remain out of work until next visit in 1 month [email or web address] Not available 10/29/2024 08:12:10 10/23/2024 [id number] work status report* - Continue until next [...] right shoulder MRI performed without contrast at [facility] on 07/12/2024. The radiologist commented [...] Altamirano MD Not available 10/29/2024 08:35:55 11/20/2024 [id number] work status report* - Continue until next [...] right shoulder MRI performed without contrast at [facility] on 07/12/2024. The radiologist commented [...] shoulder. No acute fracture appreciated. Interpreted by: Pihllip Altamirano MD Not available 11/20/2024 06:12:50 11/26/2024 [id number] work status report* - Begin full-time full duty work on December 03, 2024. [email or web address] Not available 12/03/2024 08:21:40 Reason for Referral Neurologist Referral for Atr ophy of muscle of right upper arm Referring Physician: Rajiv Christian, Orthopedic Surgery, Encounter Date: 10/22/2024 Results Created Date Observation Date Name Description Value Unit Range Abnormal Flag Note LastModifiedBy Organization Detail LastModifiedTime 10/16/1910/15/2024 MRI, cervi margo spine , w/o contr ast No observ ation record ed. [email or web address] [facility] ([facility]) [address], [place], [address], 10/16/2024 08:53:29 10/18/1910/15/2024 MRI, cervi margo spine , w/o contr ast No observ ation record ed. [email or web address] Not Available 10/18 08:50:52 11/16/1911/12/2024 elect romyo gram + nerve condu ction study No observ ation record ed. [email or web address] [facility] [address], [place], [address], 11/15/2024 15:40:19 Result Notes None recorded. Problems Name Problem SNOMED Code Status Onset Date Resolution Date Notes Provider Name and Address Organization Details Recorded Time Injury of tendon of biceps brachii 902274861 Active [address], [place], [address], [place] [facility], [facility] 5 09:08:38 Pain of right shoulder joint 3565185691957 9100 Active [address], [place], [address], [place] [facility], [facility] 5 17:42:31 Neck pain 88515089 Active [address], [place], [address], [place] [facility], [facility] 5 13:41:41 Right cervical root neuropathy 8504584175572 9108 Active [address], [place], [address], [place] [facility], [facility] 5 13:31:21 Accident while engaged in work-relate d activity Active [address], [place], [address], [place] [facility], [facility] 5 15:05:05 Atrophy of muscle of right upper arm 3718527261123 09 Active [address], [place], [address], [place] [facility], [facility] 5 09:01:01 Partial thickness rotator cuff tear 137822487 Active [address], [place], [address], [place] [facility], [facility] 5 06:42:54 Problem Notes None recorded. Procedures Surgical History Date Name Laterality Status Provider Name and Address Organization Details Recorded Time Knee Surgery completed Ana Maria Hamilton [facility]10[facility] 09:16:46 Imaging Results None recorded. Procedure Notes None recorded. Medical Equipment None Reported. Allergies Allergen ID Allergen Name Allergen Category Reaction Reaction Severity Criticality Documentation Date Start Date Code Code System Note Provider Name and Address Organization Details Recorded Time 93482 nut - unspecifi ed food Not available Not available Not available 07/10/2024 Ana Maria Hamilton [facility], [facility], P 5 09:15:02 Medications Name Sig Start Date Stop [...] Updated DateTime 10/01/2024 175.26 cm 27.2 kg/m2 [address] [place] [facility], P 10/01/2024 09:57:29 Date Recorded Body height Provider Name an d Address Organization Details Last Updated DateTime 10/22/2024 175.[address] [place] [facility] 10/22/2024 08:59:36 Date Recorded Body height Body mass index (BMI) Body weight Provider Name and Address Organization Details Last Updated DateTime 10/23/2024 175.26 cm 27 kg/m2 16713.[address] [place] [facility], [facility] 10/23/2024 13:31:33 Date Recorded Body height Body mass index (BMI) Body weight Provider Name and Address Organization Details Last Updated DateTime 11/20/2024 175.26 cm 27.2 kg/m2 52648 g Ana Maria Hamilton [place] [facility], [facility] 11/20/2024 09:01:36 Date Recorded Body height Body mass index (BMI) Body weight Provider Name and Address Organization Details Last Updated DateTime 11/26/2024 175.26 cm 27.2 kg/m2 [address] [place] [facility], [facility] 11/26/2024 13:51:56 Social History None recorded. Functional Status Question Answer Note LastModified by Organizat ion Details LastModified Time How many times per week do you consume alcohol? 1-2 times per week [email or web address] Information not available 07/10/2024 Do you use any illicit or recreational drugs? No [email or web address] Information not available 07/10/2024 Do you or have you ever used any other forms of tobacco or nicotine? No [email or web address] Information not available 07/10/2024 What is your level of alcohol consumption? Occasional [email or web address] Information not available 07/10/2024 Are you currently employed? 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 Family History Relationship Description Onset Age of this Age Resolved Age Notes LastModified by Organization Details LastModified Time Mother History of cancer of unknown primary site Not available 08/2024 09:16:07 Sister History of cancer of unknown primary site [email or web address] Not available 08/2024 09:16:15 Medical History Condition Response Coronary Artery Disease N Gout Y Hyperthyroidism N MRSA N Blood Transfusion N Emphysema N Depression Y COPD N Hypothyroidism N Pacemaker N Vascular Disease N Gastrointestinal Disease Y Anxiety Disorder N Autoimmune disease N Arthritis Y Cancer N Stroke N High Cholesterol N Neurologic Disorder N Liver Disease N Organ Transplant N Rheumatoid Arthritis Y Arrhythmia N Fibromyalgia N Kidney Disease N Allergies/Hayfever Y Adverse Reaction to Anesthesia N Thyroid Problems N Anemia N Brain Injury N Heart Attack (ID) N Osteopenia N Diabetes Y Bleeding Disorder [...] ICD10 Code Diagnosis IMO Codes Diagnosis Note [id number] MD TEZ [address] [address] 07/10/2024 08:28:59 07/10/2024 09:13:34 Pain of right shoulder joint 4492165129 7419523 M25.511 022767 Injury of tendon of biceps brachii 779371019 S46.219A 622972 [id number] MD TEZ [address] [address] 07/16/2024 13:13:08 07/16/2024 14:04:59 Pain of right shoulder joint 2478700451 5376513 M25.511 096930 Injury of tendon of biceps brachii 453531968 S46.219A 524348 Neck pain 50563401 M54.2 39719786 Partial th ickness rotator cuff tear 923902408 M75.111 3941553308 [id number] MD [facility]g [facility] [place] [address] [place] [address] [place] [address] 08/01/2024 13:16:35 08/01/2024 14:11:05 Neck pain 47828326 M54.2 741280 Right cerv ical root neuropathy 0982041515 8833022 M54.12 88596521 Accident w tejinder engaged in work-related activity 74106824 Y99.0 872685 [id number] Rajiv Christian MD [place] [address] 09/03/2024 15:14:43 09/03/2024 15:47:23 Accident while engaged in work-related activity 13553871 Y99.0 030531 Totally temporaril y disabled x 1 month Right cerv ical root neuropathy 0903748329 5232203 M54.12 32821641 Neck pain 26735062 M54.2 61630533 [id number] Rajiv Christian MD [place] [phone] 10/01/2024 09:53:02 10/01/2024 10:04:25 Neck pain 08329591 M54.2 63056844 Accident w tejinder engaged in work-related activity 05313372 Y99.0 291966 Totally temporaril y disabled x 1 month [id number] Rajiv Christian MD [place] [phone] 10/22/2024 08:48:15 10/22/2024 09:04:18 Neck pain 41900753 M54.2 53774633 Accident w tejinder engaged in work-related activity 00881143 Y99.0 966507 Totally temporaril y disabled x 1 month Pain of ri ght shoulder joint 6644406477 3996352 M25.511 100479 Right cerv ical root neuropathy 0113837942 9391384 M54.12 57068244 Atrophy of muscle of right upper arm 5401640816 16196 M62.521 55496035 [id number] MD CHRISTINE Kenny [address] [address] 10/23/2024 13:26:46 10/23/2024 13:44:34 Pain of right shoulder joint 2294053210 8732348 M25.511 693999 Injury of tendon of biceps brachii 394831468 S46.219A 905737 Neck pain 02322830 M54.2 69162599 Partial th ickness rotator cuff tear M75.111 4576221462 [id number] MD TEZ [address] [address] 11/20/2024 08:53:20 11/20/2024 09:16:20 Pain of right shoulder joint 8497816999 7693904 M25.511 735228 Injury of tendon of biceps brachii 519278962 S46.219A 839759 Neck pain 28566547 M54.2 81211258 Partial th ickness rotator cuff tear M75.111 2333092095 [id number] Rajiv Christian MD [address] [address] 11/26/2024 13:29:52 11/26/2024 14:07:02 Accident while engaged in work-related activity 64133531 Y99.0 909408 Totally temporaril y disabled x 1 month Right cerv ical root neuropathy 2516504407 3984677 M54.12 52726490 Health Concerns Section Related Observation LastModified by Organization Detai ls LastModified Time None Recorded Concern Status LastModified by Organization Details LastModified Time None Recorded Advance Directives Directive None Recorded Payers Insurance Date Sequence Insurance Name Policy Number Policy Blackmon Covered Member ID Blackmon Member ID Guarantor Name 10/30/2024 [facility] [id number] [facility] Precisi PlaytabaseKeisha Oleary Reaanjum Notes Date Note Type Note Provider Name [...] He tells me he was out in [place] performing some work. He was on a [...] on his right side on 07/23/2024 in [place]. 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 History of prednisone use. 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 Phillip Altamirano MD [address], [place], [address], [place] [facility], [facility] 10/29/2024 08:35:58 11/20/2024 text/html ROS as [...] work. He currently continues physical therapy at [facility] in [place]. PRIOR:Patient returns for reevaluation of his right [...] He tells me he was out in [place] performing some work. He was on a [...] on his right side on 07/23/2024 in [place]. 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 History of prednisone use. 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 Phillip Altamirano MD [address], [place], [address], [place] [facility], [facility] 11/20/2024 16:22:19
--- OUTSIDE RECORDS SUMMARY | 2024-12-20 11:31 | XMS_ITS | Encounter Summary ---
Author Organization [facility] Address [address] [place] [address] Care Team Providers Care Shorthand Teacher Name Role Phone Ankit Law MD Primary Care Provider [phone] Encounter Details Date Type Department Care Team (Late st Contact Info) Description 01/12/2024 Scanned Document [facility] PHYSICAL MEDICINE & REH[facility] [address] [place] [phone] Richard Zavala MA [address] [place] [address] Social History Tobacco Use Types Packs/Day Years Used Date Smoking Tobacco: Never Smokeless Tobacco: Never Alcohol Use Standard Drinks/Week Comments Yes 0 (1 standard drink = 0.6 oz pur e alcohol) [facility] [place] of Occupat ional Health - Occupational Stress [...] on filedocumented in this encounter Care Teams Shorthand Teacher Relationship Specialty Start Date End Date Ankit Law MD [address] [place] [address] Dr Dior [facility] [place], [place] [address] PCP - General Family Medicine 11/16/23 documented as of this encounter
--- OUTSIDE RECORDS SUMMARY | 2024-12-20 11:31 | XMS_ITS | Encounter Summary ---
Author Organization [facility] Address [address] [place] [address] Care Team Providers Care Coordinate Measuring Equipment Operator Name Role Phone Ankit Law MD Primary Care Provider [phone] Encounter Details Date Type Department Care Team ([facility] st Contact Info) Description 02/15/2024 Scanned Document [facility] PHYSICAL MEDICINE & REHAB [facility] [address] [place] [phone] Luz Peralta MA [address] [place] [id number] Social History Tobacco Use Types Packs/Day Years Used Date Smoking Tobacco: Never Smokeless Tobacco: Never Alcohol Use Standard Drinks/Week Comments Yes 0 (1 standard drink = 0.6 oz pur e alcohol) [facility] [place] of Occupat ional Health - Occupational Stress [...] on filedocumented in this encounter Care Teams Coordinate Measuring Equipment Operator Relationship Specialty Start Date End Date Ankit Law MD [address] [place] [address] Dr Dior [address] [place] [address] PCP - General Family Medicine 11/16/23 documented as of this encounter
--- OUTSIDE RECORDS SUMMARY | 2024-12-20 11:31 | XMS_ITS | Encounter Summary ---
Author Organization [facility] Address [address] [place] [address] Care Team Providers Care Butter Printer Name Role Phone Ankit Law MD Primary Care Provider [phone] Encounter Details Date Type Department Care Team ([facility] st Contact Info) Description 02/15/2024 Scanned Document [facility] PHYSICAL MEDICINE & REHAB [facility] [address] [place] [phone] Luz Peralta MA [address] [place] [id number] Social History Tobacco Use Types Packs/Day Years Used Date Smoking Tobacco: Never Smokeless Tobacco: Never Alcohol Use Standard Drinks/Week Comments Yes 0 (1 standard drink = 0.6 oz pur e alcohol) [facility] [place] [place] of Occupat ional Health - Occupational Stress [...] on filedocumented in this encounter Care Teams Butter Printer Relationship Specialty Start Date End Date Ankit Law MD [address] [place] [address] Dr Dior [address] [place] [address] PCP - General Family Medicine 11/16/23 documented as of this encounter
--- OUTSIDE RECORDS SUMMARY | 2024-12-20 11:31 | XMS_ITS | Encounter Summary ---
Author Organization [facility] Address [address] [place] [address] Care Team Providers Care Keno Writer/Runner Name Role Phone Ankit Law MD Primary Care Provider [phone] Encounter Details Date Type Department Care Team ([facility] st Contact Info) Description 02/15/[address] [facility] PHYSICAL MEDICINE & REHAB [facility] [address] [place] [phone] Luz Peralta MA [address] [place] [phone] Social History Tobacco Use Types Packs/Day Years Used Date Smoking Tobacco: Never Smokeless Tobacco: Never Alcohol Use Standard Drinks/Week Comments Yes 0 (1 standard drink = 0.6 oz pur e alcohol) [facility] [place] of Occupat ional Health - Occupational Stress [...] on filedocumented in this encounter Care Teams Keno Writer/Runner Relationship Specialty Start Date End Date Ankit Law MD [address] [place] [address] Dr Dior [address] [place] [address] PCP - General Family Medicine 11/16/23 documented as of this encounter
--- OUTSIDE RECORDS SUMMARY | 2024-12-20 11:31 | XMS_ITS | Clinical Summary ---
Author Organization [facility] Address [address] [facility] [facility] [address] [facility] [address] [place] [address] Phone Care Team Providers Care Machine Setter Automatic Name Role Phone Pcp, Unknown Primary Care Provider Unavailabl e Medications pantoprazole (PROTONIX) 40 MG tablet Take 40 mg by mouth every morning. 08/02/2024 Active Active Problems No known active problems Encounters Date Type Department Care Team Description 09/21/2024 9:50 AM EDT Office Visit [facility] [address] [address] Sharon Arvizu CNP Chest pain, unspecified type [...] topic Medical Devices Not on file Insurance inexio EPO inexio EPO [employer] [facility] [facility] EPO Care Teams Machine Setter Automatic Relationship Specialty Start Date End Date Pcp, Unknown PCP - General 09/21/24 Additional Source Comments The information contained in this document represents components of the legal health record. It is not the complete legal health record.[facility]
== END 2024-12-20 11:12 | disposition home or self-care (01) ==
LOC: HO.HMCFM 09:51
PROVIDERS: PCP Family Medicine; Visit Provider Family Medicine
DX: R74.8 Abnormal levels of other serum enzymes (principal); E78.6 Lipoprotein deficiency